=== PATIENT | female | born 1935 | race Caucasian/White ===

== ENCOUNTER 2016-09-07 09:28 | Emergency (ER) | payer MEDICARE, OTHER ==
[2016-09-07] MEDS ORDERED: METHYLPREDNISOLONE INJ 125 MG/2 ML SDV IV ONE (09:50)
[2016-09-07] MEDS ORDERED: IPRATROPIUM/ALBUTEROL 0.5-2.5 MG/3 ML AMPUL NEB ONE (09:50)
--- NOTE | 2016-09-07 09:53 | ER Document Report ---
ED Respiratory Problem - General Mode of Arrival: Medic Information source: Patient TRAVEL OUTSIDE OF THE [place] IN LAST 30 DAYS: No - HPI Patient complains to provider of: Short of breath Onset: This morning Associated symptoms: Other - see above <SHAILA YBARRA - Last Filed: 09/07/16 10:48> <EDITH PERKINS - Last Filed: 09/07/16 16:02> - General Stated Complaint: DIFFICULTY BREATHING Notes: 80 year old female with history of an aortic valve replacement, hyperlipidemia, hypertension, and atrial fibrillation presents to the ED via EMS complaining of shortness of breath that started earlier this morning. Patient states that prior to taking her medication, she drank some cold water and began to feel some shortness of breath. The patient then proceeded to vomit up water and mucus. Patient saw Dr. Palmer yesterday for a routine check up and states that she had an episode of shortness of breath shortly after dinner last night. Patient has never experienced shortness of breath to this degree before. (SHAILA YBARRA) - Related Data Allergies/Adverse Reactions: morphine [Morphine] Adverse Reaction (Verified 12/17/14 02:58) oxycodone [Oxycodone] Adverse Reaction (Verified 12/17/14 02:58) Past Medical History - General Information source: Patient - Social History Smoking Status: Unknown if Ever Smoked Family History: Reviewed & Not Pertinent - Past Medical History Cardiac Medical History: Reports: Hx Atrial Fibrillation, Hx Hypercholesterolemia, Hx Hypertension, Hx Heart Murmur Endocrine Medical History: Reports: Hx Diabetes Mellitus Type 2 Psychiatric Medical History: Reports: Hx Dementia, Hx Depression Past Surgical History: Reports: Hx Orthopedic Surgery - L shoulder repair, Hx Tubal Ligation - Immunizations Hx Diphtheria, Pertussis, Tetanus Vaccination: Yes Hx Pneumococcal Vaccination: 02/13/12 <SHAILA YBARRA - Last Filed: 09/07/16 10:48> Review of Systems - Review of Systems Constitutional: No symptoms reported EENT: No symptoms reported Cardiovascular: No symptoms reported Respiratory: See HPI, Short of breath Gastrointestinal: See HPI, Vomiting Genitourinary: No symptoms reported Female Genitourinary: No symptoms reported Musculoskeletal: No symptoms reported Skin: No symptoms reported Hematologic/Lymphatic: No symptoms reported Neurological/Psychological: No symptoms reported -: Yes All other systems reviewed and negative <SHAILA YBARRA - Last Filed: 09/07/16 10:48> Physical Exam - General General appearance: Alert In distress: None - HEENT Head: Normocephalic, Atraumatic Eyes: Normal Extraocular movements intact: Yes Pupils: PERRL - Respiratory Respiratory status: No respiratory distress Breath sounds: Rhonchi, Wheezing - Cardiovascular Rhythm: Regular Heart sounds: Normal auscultation Murmur: Yes - 2/6 murmur - Abdominal Inspection: Obese. No: Normal - Back Back: Normal - Extremities General upper extremity: Normal inspection, Normal ROM General lower extremity: Edema - some trace edema to the bilateral lower extremities, Normal ROM - Neurological Neuro grossly intact: Yes - Psychological Associated symptoms: Normal affect, Normal mood - Skin Skin Temperature: Warm Skin Moisture: Dry Skin Color: Normal <SHAILA YBARRA - Last Filed: 09/07/16 10:48> <EDITH PERKINS - Last Filed: 09/07/16 16:02> - Vital signs Vitals: Resp Pulse Ox 16 94 09/07/16 09:47 09/07/16 09:47 Temp Pulse Resp BP Pulse Ox 97.6 F 102 H 18 179/91 H 94 09/07/16 09:54 09/07/16 09:54 09/07/16 09:54 09/07/16 09:54 09/07/16 09:54 (SHAILA YBARRA) (EDITH PERKINS) Course - Laboratory Result Diagrams: 09/07/16 10:00 09/07/16 10:00 <SHAILA YBARRA - Last Filed: 09/07/16 10:48> - Laboratory Result Diagrams: 09/07/16 10:00 09/07/16 10:00 - Diagnostic Test Radiology reviewed: Image reviewed, Reports reviewed - Chest x-ray shows some chronic scarring in the left lower lung. No acute changes. CTa chest--no pulmonary embolus. Suggest pulmonary hypertension. No obstruction to aortic valve. - EKG Interpretation by [place] EKG shows normal: Sinus rhythm, [place], Intervals, ST-T Waves. abnormal: QRS Complexes Rate: Normal - 95 Rhythm: NSR [place]/QRS: LBBB <EDITH PERKINS - Last Filed: 09/07/16 16:02> - Re-evaluation Re-evalutation: 09/07/16 12:17 Patient reports that her breathing is actually much better after the breathing treatment. She will receive additional breathing treatments. Antibiotics were started for a urinary tract infection. 09/07/16 14:04 On reexamining the patient, no wheezes really hurt. She has become quite diaphoretic and does feel warm. Her pulse ox is 93% on room air. She does seem a little tachypneic. His that ever since she had her aortic valve replaced, she does get dyspnea on exertion and is unable to walk even from her room to the dining area at [facility] without becoming short of breath. (EDITH PERKINS) - Vital Signs Vital signs: Temp Pulse Resp BP Pulse Ox 97.6 F 102 H 19 147/57 H 91 L 09/07/16 09:54 09/07/16 09:54 09/07/16 15:01 09/07/16 15:00 09/07/16 15:01 (EDITH PERKINS) - Laboratory Laboratory results interpreted by me: 09/07/16 09/07/16 09/07/16 10:00 10:00 10:00 WBC 13.0 H MCV 98 H Plt Count 141 L Seg Neuts % (Manual) 90 H Lymphocytes % (Manual) 5 L Abs Neuts (Manual) 11.7 H D-Dimer Sodium 145.2 H Est GFR (Non-Af Amer) 52 L Glucose 147 H NT-Pro-B Natriuret Pep 1920 H Urine Protein Urine Blood Urine Nitrite Ur Leukocyte Esterase 09/07/16 09/07/16 10:00 10:40 WBC MCV Plt Count Seg Neuts % (Manual) Lymphocytes % (Manual) Abs Neuts (Manual) D-Dimer 0.64 H Sodium Est GFR (Non-Af Amer) Glucose NT-Pro-B Natriuret Pep Urine Protein 100 H Urine Blood SMALL H Urine Nitrite POSITIVE H Ur Leukocyte Esterase MODERATE H Discharge <SHAILA YBARRA - Last Filed: 09/07/16 10:48> <EDITH PERKINS - Last Filed: 09/07/16 16:02> - Discharge Clinical Impression: Acute bronchitis with bronchospasm, Difficulty breathing Urinary tract infection Qualifiers: Urinary tract infection type: site unspecified Hematuria presence: without hematuria Qualified Code(s): N39.0 - Urinary tract infection, site not specified Condition: Stable Disposition: HOME, SELF-CARE Additional Instructions: Bronchitis with Bronchospasm (Wheezing): You have bronchitis with bronchospasm (wheezing). Sometimes people develop wheezing with a chest cold. This occurs either because of an underlying tendency toward asthma or because the virus itself irritates the bronchial tubes. This irritation causes cough, shortness of breath, and wheezing. Emergency treatment of bronchospasm may include adrenaline shots or bronchodilator aerosol. You may feel lightheaded and have a rapid pulse for an hour or two. Rest and get plenty of fluids. At home, we'll treat you with a bronchodilator inhaler. Corticosteroids may be required for some patients. Until you recover, avoid chemical fumes, dusts, pollens, and exercising in very cold or dry air. If you smoke, stop now! Most cases of bronchitis get better without antibiotics. We prescribe antibiotics when we believe bacteria are damaging your airways, or if there's high risk the bronchitis will worsen into pneumonia. Increase your fluid intake. A cool mist humidifier may make your lungs more comfortable. An expectorant (cough medicine that loosens phlegm) can help. Repeated episodes of bronchitis and bronchospasm may result in lung damage -- for example, chronic bronchitis, recurrent pneumonias, or emphysema. If you develop a fever, increased wheezing, chest pain, or severe shortness of breath, you should contact the doctor immediately. Urinary Tract Infection: Your evaluation indicates that you have a urinary tract infection. This is due to germs growing in the bladder. This is a common problem. This infection usually responds quickly to antibiotics. Your antibiotic should be taken exactly as prescribed. Drink plenty of fluids -- three to four quarts a day. Certain urine infections require a culture. If the doctor obtained a culture, the results will be back in two days. You should call to see if a change in treatment is needed. A repeat urinalysis after you finish treatment is often recommended. The physician will let you know if further testing is required. Call the doctor if you develop fever, chills, flank pain, inability to urinate, or blood in the urine. USE THE INHALER 2 PUFFS EVERY 4 HOURS FOR WHEEZING AND SHORTNESS OF BREATH. START THE PREDNISONE AND KEFLEX TOMORROW. DRINK PLENTY OF FLUIDS. FOLLOW UP WITH YOUR DOCTOR FRIDAY FOR RECHECK. RETURN TO THE EMERGENCY ROOM IF ANY NEW OR WORSENING SYMPTOMS. Prescriptions: Cephalexin Monohydrate [Keflex 500 mg Capsule] 500 mg PO TID #15 capsule Prednisone [Deltasone 10 mg Tablet] 10 mg PO ASDIR PRN #21 tablet PRN Reason: Referrals: ITALO PALMER MD [Primary Care Provider] - 09/09/16 Scribe Attestation: 09/07/16 16:02 I personally performed the services described in the documentation, reviewed and edited the documentation which was dictated to the scribe in my presence, and it accurately records my words and actions. (EDITH PERKINS) Scribe Documentation - Scribe Written by Tiera:: Tiera Williamson, 09/07/2016 09:55 acting as scribe for :: Lina <SHAILA YBARRA - Last Filed: 09/07/16 10:48>
[2016-09-07 10:18] LABS: HEMATOCRIT 37.3 % (36.0-47.0); HEMOGLOBIN 12.2 g/dL (12.0-15.5); HGB HCT DIFFERENCE -0.7; MEAN CORPUSCULAR HGB CONC 32.8 g/dL (32.0-36.0); MEAN CORPUSCULAR VOLUME 98 fl (80-97); RED BLOOD COUNT 3.82 10^6/uL (3.72-5.28); RED CELL DISTRIBUTION WIDTH 13.2 % (11.5-14.0)
[2016-09-07 10:33] LABS: ALANINE AMINOTRANSFERASE 25 U/L (9-52); ALBUMIN 3.9 g/dL (3.5-5.0); ALKALINE PHOSPHATASE 96 U/L (38-126); ANION GAP 15 (5-19); ASPARTATE AMINO TRANSFERASE 20 U/L (14-36); BILIRUBIN,TOTAL 0.6 mg/dL (0.2-1.3); BLOOD UREA NITROGEN 18 mg/dL (7-20); CALCIUM 8.9 mg/dL (8.4-10.2); CARBON DIOXIDE 26 mmol/L (22-30); CHLORIDE 104 mmol/L (98-107); CREATINE KINASE 36 U/L (30-135); CREATININE RESULT 1.03 mg/dL (0.52-1.25); GLUCOSE 147 mg/dL (75-110); POTASSIUM 3.8 mmol/L (3.6-5.0); SODIUM 145.2 mmol/L (137-145); TOTAL PROTEIN 7.1 g/dL (6.3-8.2)
[2016-09-07 10:36] LABS: BASOPHILS % (MANUAL) 1 % (0-2); EOSINOPHILS % (MANUAL) 0 % (0-6); LYMPHOCYTES % (MANUAL) 5 % (13-45); TOTAL CELLS COUNTED 100
[2016-09-07 10:37] LABS: RBC MORPHOLOGY COMMENT NORMO-CYTIC/CHROMIC
[2016-09-07 10:45] LABS: CREATINE KINASE MB 0.8 ng/mL (<4.55); TROPONIN I 0.016 ng/mL
[2016-09-07 11:13] LABS: APPEARANCE,URINE CLOUDY; BILIRUBIN,URINE NEGATIVE (NEGATIVE); GLUCOSE, URINE NEGATIVE (NEGATIVE); KETONES,URINE NEGATIVE (NEGATIVE); LEUKOCYTE ESTERASE,URINE MODERATE (NEGATIVE); NITRITE,URINE POSITIVE (NEGATIVE); PROTEIN,URINE 100 mg/dL (NEGATIVE); URINE SPECIFIC GRAVITY 1.017; UROBILINOGEN,URINE NEGATIVE mg/dL (<2.0)
[2016-09-07] MEDS ORDERED: CEFTRIAXONE 1 GM/D5W RTU 50 ML IV ONE (11:32)
[2016-09-07] MEDS ORDERED: ALBUTEROL SULFATE 0.083% NEB 2.5 MG/3 ML AMPUL NEB ONE (12:17)
--- NOTE | 2016-09-07 15:13 | EKG REPORT ---
SEVERITY:- ABNORMAL ECG - SINUS RHYTHM LEFT BUNDLE BRANCH BLOCK : Confirmed by: Chayo Dumont MD 07-Sep-2016 15:12:55
[2016-09-07] MEDS ORDERED: ALBUTEROL SULFATE HFA (90 MCG/PUFF) 8 GM MDI (1 MDI/ER DISP) IH ONE (15:58)
[2016-09-07] MEDS ORDERED: PREDNISONE 20 MG TABLET PO ONE (15:58)
[2016-09-07 16:26] VITALS: BP 146/61
== END 2016-09-07 16:30 | disposition home or self-care (01) ==
LOC: ER 09:28
DX: J20.9 Acute bronchitis, unspecified (principal); N39.0 Urinary tract infection, site not specified; R06.02 Shortness of breath; I10 Essential (primary) hypertension; R11.10 Vomiting, unspecified; E11.9 Type 2 diabetes mellitus without complications; R60.0 Localized edema; I44.7 Left bundle-branch block, unspecified; Z95.2 Presence of prosthetic heart valve; R61 Generalized hyperhidrosis
CPT/HCPCS: 93005; 94640 ×2; 99285; 36415; 87040; 87086; 82553; 82550; 85025; 87077; 87088; 80053; 81001; 84484; 87186; 85379; 83880; 71010; 71275; 93010; J2930; A9270 ×3; J0696; J3490; J7512; J7620

== ENCOUNTER 2017-01-22 13:31 | Emergency (ER) | payer MEDICARE, OTHER ==
--- NOTE | 2017-01-22 15:10 | RADIOLOGY REPORT (SQ) ---
EXAM DESCRIPTION: CT HEAD WITHOUT COMPLETED DATE/TIME: 01/22/2017 2:58 pm REASON FOR STUDY: fall, hit head COMPARISON: 06/08/2015. TECHNIQUE: Axial images acquired through the brain without intravenous contrast. Images reviewed wi th bone, brain and subdural windows. Images stored on PACS. All CT scanners at this facility use dose modulation, iterative reconstruction, and/or weight based d osing when appropriate to reduce radiation dose to as low as reasonably achievable (ALARA). [facility]: Dose Right [facility]: CareDose [facility]: Dose Right [facility]: Teradose 4D [facility]: Ocean's Halo RADIATION DOSE: 59.25 mGy. LIMITATIONS: None. FINDINGS: VENTRICLES: Normal size and contour. CEREBRUM: There is mild cortical atrophy. There are small areas of decreased attenuation in the whit e matter tracts. No masses. No hemorrhage. No midline shift. Normal orellana/white matter differentia tion. No evidence for acute infarction. CEREBELLUM: No masses. No hemorrhage. No alteration of density. No evidence for acute infarction. EXTRAAXIAL SPACES: No fluid collections. No masses. ORBITS AND GLOBE: No intra- or extraconal masses. Normal contour of globe without masses. CALVARIUM: No fracture. PARANASAL SINUSES: No fluid or mucosal thickening. SOFT TISSUES: No mass or hematoma. OTHER: No other significant finding. IMPRESSION: Involutional changes of aging with chronic microvascular ischemic changes. There is no acute intracranial pathology. TECHNICAL DOCUMENTATION: JOB ID: [id number] Quality ID # [id number]: Final reports with documentation of one or more dose reduction techniques (e.g., Au tomated exposure control, adjustment of the mA and/or kV according to patient size, use of iterative reconstruction technique) 2010 [employer]- All Rights Reserved
[2017-01-22] MEDS ORDERED: HYDROMORPHONE HCL 2 MG TABLET PO ONE ×2 (15:17→16:33)
--- NOTE | 2017-01-22 15:24 | RADIOLOGY REPORT (SQ) ---
EXAM DESCRIPTION: SHOULDER RIGHT 2 OR MORE VIEWS COMPLETED DATE/TIME: 01/22/2017 3:14 pm REASON FOR STUDY: fall COMPARISON: None. NUMBER OF VIEWS: Three views. TECHNIQUE: Internal rotation, external rotation, and Y view images acquired of the right shoulder. LIMITATIONS: None. FINDINGS: MINERALIZATION: Osteopenia. BONES: There is a comminuted fracture involving the right humeral head/neck with apparent extension i nto the joint space. There appears to be displacement of the fracture fragments medially and distall y in relation to the humeral shaft. No other fractures are identified. No dislocation JOINTS: No dislocation. Degenerative changes noted in the acromioclavicular joint. VISUALIZED LUNGS AND RIBS: No pneumothorax. No rib fracture. SOFT TISSUES: There is soft tissue swelling about the shoulder. No radiopaque foreign by OTHER: No other significant finding. IMPRESSION: Comminuted fracture of the right humeral head/neck extension of the fracture into the catarino int space. There is displacement of the fracture fragments both distally and medially in relation to the humeral shaft. There is soft tissue swelling about the shoulder. No radiopaque foreign body. TECHNICAL DOCUMENTATION: JOB ID: [id number] [employer]- All Rights Reserved
--- NOTE | 2017-01-22 15:55 | ER Document Report ---
ED Fall - General Chief Complaint: Fall Stated Complaint: FALL/SHOLDER PAIN Time Seen by Provider: 01/22/17 14:32 Mode of Arrival: Medic Information source: Patient, Emergency Med Personnel, [facility] Records Notes: This 81-year-old female with some dementia lives at [facility]. She reportedly tripped over a floor mat, fell striking her head on a bedside table and landing on her right side on the floor. She is complaining of pain to the right shoulder. There was no dizziness prior to the fall. TRAVEL OUTSIDE OF THE [place] IN LAST 30 DAYS: No - Related data Allergies/Adverse Reactions: morphine [Morphine] Adverse Reaction (Verified 12/17/14 02:58) oxycodone [Oxycodone] Adverse Reaction (Verified 12/17/14 02:58) Past Medical History - General Information source: Patient, Emergency Med Personnel, [facility] Records - Social History Smoking Status: Former Smoker Cigarette use (# per day): No Chew tobacco use (# tins/day): No Smoking Education Provided: No Frequency of alcohol use: None Drug Abuse: None Lives with: Retirement Family History: Reviewed & Not Pertinent - Past Medical History Cardiac Medical History: Reports: Hx Atrial Fibrillation, Hx Hypercholesterolemia, Hx Hypertension, Hx Heart Murmur, Other - Pulmonary hypertension Pulmonary Medical History: Reports: None EENT Medical History: Reports: None Neurological Medical History: Reports: None Endocrine Medical History: Reports: Hx Diabetes Mellitus Type 2 Renal/ Medical History: Reports: None Malignancy Medical History: Reports: None GI Medical History: Reports: None Musculoskeltal Medical History: Reports Hx Arthritis Skin Medical History: Reports None Psychiatric Medical History: Reports: Hx Dementia, Hx Depression Traumatic Medical History: Reports: None Infectious Medical History: Reports: None Past Surgical History: Reports: Hx Cardiac Surgery - Bio-prosthetic aortic valve replacement, Hx Orthopedic Surgery - L shoulder replacement, Hx Tubal Ligation, Other - Right mastoid surgery for chronic mastoiditis - Immunizations Hx Diphtheria, Pertussis, Tetanus Vaccination: Yes Hx Pneumococcal Vaccination: 02/13/12 Review of Systems - Review of Systems Constitutional: No symptoms reported EENT: No symptoms reported Cardiovascular: No symptoms reported Respiratory: No symptoms reported Gastrointestinal: No symptoms reported Genitourinary: No symptoms reported Female Genitourinary: Post menopausal Musculoskeletal: See HPI Skin: No symptoms reported Hematologic/Lymphatic: No symptoms reported Neurological/Psychological: Dementia Physical Exam - Vital signs Vitals: Temp Resp 98.0 F 18 01/22/17 13:35 01/22/17 13:35 Interpretation: Normal - General General appearance: Appears well, Alert In distress: None - HEENT Head: Normocephalic Eyes: Normal Pupils: PERRL Nasal: Normal Mouth/Lips: Normal Pharynx: Normal Neck: Normal - Respiratory Respiratory status: No respiratory distress Breath sounds: Normal - Cardiovascular Rhythm: Regular Heart sounds: Normal auscultation Murmur: No - Abdominal Inspection: Normal Bowel sounds: Normal Tenderness: Nontender - Back Back: Normal - Extremities General upper extremity: Other - Tender swelling to the right shoulder General lower extremity: Normal inspection Elbow: Normal Forearm: Normal Wrist: Normal Hand: Normal - Neurological Neuro grossly intact: Yes - Psychological Associated symptoms: Normal affect, Normal mood Course - Re-evaluation Re-evalutation: 01/22/17 16:22 The shoulder immobilizer was placed on the right shoulder by the PCT. Fits well, it holds the wrist to the abdomen, it allows the shoulder to hang freely. - Vital Signs Vital signs: Temp Pulse Resp BP Pulse Ox 98.0 F 18 129/47 H 93 01/22/17 13:35 01/22/17 13:35 01/22/17 14:12 01/22/17 14:12 - Diagnostic Test Radiology reviewed: Image reviewed, Reports reviewed - Comminuted, slightly displaced, right humeral head Discharge - Discharge Clinical Impression: Shoulder fracture, right Qualifiers: Encounter type: initial encounter Fracture type: closed Qualified Code(s): S42.91XA - Fracture of right shoulder girdle, part unspecified, initial encounter for closed fracture Fall Qualifiers: Encounter type: initial encounter Qualified Code(s): W19.XXXA - Unspecified fall, initial encounter Condition: Stable Disposition: HOME, SELF-CARE Additional Instructions: You have a comminuted, displaced fracture of the humeral head in the right shoulder. The management of this injury is a shoulder immobilizer, ice packs, and pain medication. Call Dr. Vizcarra's office at [facility] for surgery to schedule a follow- up appointment in the next week. Follow-up with your primary care doctor for pain management if you are running out of the pain medication. RETURN TO THE EMERGENCY ROOM IF ANY NEW OR WORSENING SYMPTOMS. Prescriptions: Hydromorphone HCl [Dilaudid 2 mg Tablet] 2 mg PO Q4 PRN #20 tablet PRN Reason:
[2017-01-22 19:22] VITALS: BP 126/46
== END 2017-01-22 19:55 | disposition home or self-care (01) ==
LOC: ER 13:31
DX: S42.91XA Fracture of right shoulder girdle, part unspecified, initial encounter for closed fracture (principal); M25.511 Pain in right shoulder; W19.XXXA Unspecified fall, initial encounter; Z87.891 Personal history of nicotine dependence
CPT/HCPCS: 99284; 73030; 70450; L3650; A9270

== ENCOUNTER 2017-02-18 09:30 | Inpatient (IN) | payer MEDICARE, OTHER ==
[2017-02-18] MEDS ORDERED: NORMAL SALINE 500 ML IV ONE (09:44)
[2017-02-18 10:05] LABS: ABSOLUTE EOSINOPHILS # (AUTO) 0.1 10^3/uL (0.0-0.6); ABSOLUTE LYMPHOCYTES (AUTO) 0.8 10^3/uL (0.5-4.7); ABSOLUTE MONOCYTES (AUTO) 0.4 10^3/uL (0.1-1.4); ABSOLUTE NEUT (AUTO) 4.3 10^3/uL (1.7-8.2); BASOPHILS % (AUTO) 0.5 % (0-2); EOSINOPHILS % (AUTO) 1.6 % (0-6); HEMATOCRIT 31.7 % (36.0-47.0); HEMOGLOBIN 10.2 g/dL (12.0-15.5); HGB HCT DIFFERENCE -1.1; LYMPHOCYTES % (AUTO) 14.5 % (13-45); MEAN CORPUSCULAR HEMOGLOBIN 31.7 pg (27.0-33.4); MEAN CORPUSCULAR HGB CONC 32.3 g/dL (32.0-36.0); MEAN CORPUSCULAR VOLUME 98 fl (80-97); MONOCYTES % (AUTO) 6.8 % (3-13); RED BLOOD COUNT 3.23 10^6/uL (3.72-5.28); RED CELL DISTRIBUTION WIDTH 13.4 % (11.5-14.0); SEGMENTED NEUTROPHILS % (AUTO) 76.6 % (42-78); WHITE BLOOD COUNT 5.7 10^3/uL (4.0-10.5)
--- NOTE | 2017-02-18 10:10 | RADIOLOGY REPORT (SQ) ---
EXAM DESCRIPTION: CHEST SINGLE VIEW COMPLETED DATE/TIME: 02/18/2017 9:59 am REASON FOR STUDY: bed 4 cp COMPARISON: X-ray right shoulder dated 01/22/2017. Chest x-ray dated 09/07/2016. EXAM PARAMETERS: NUMBER OF VIEWS: One view. TECHNIQUE: Single frontal radiographic view of the chest acquired. RADIATION DOSE: NA LIMITATIONS: None. FINDINGS: LUNGS AND PLEURA: Linear atelectasis/ scarring. No lobar infiltrates, masses or pneumotho rax. No pleural effusion. MEDIASTINUM AND HILAR STRUCTURES: No masses. Contour normal. HEART AND VASCULAR STRUCTURES: Heart upper limits of normal in size. Normal vasculature. BONES: No acute findings. Previous fracture of the right humeral head. HARDWARE: Aortic valve. Left shoulder prosthesis. OTHER: No other significant finding. IMPRESSION: STABLE CHRONIC CHANGES. BORDERLINE CARDIOMEGALY. LINEAR ATELECTASIS/SCARRING. NO ACUT E RADIOGRAPHIC FINDING IN THE CHEST. TECHNICAL DOCUMENTATION: JOB ID: [id number]
[2017-02-18 10:18] LABS: ALANINE AMINOTRANSFERASE 26 U/L (9-52); ALBUMIN 3.8 g/dL (3.5-5.0); ALKALINE PHOSPHATASE 145 U/L (38-126); ANION GAP 11 (5-19); ASPARTATE AMINO TRANSFERASE 19 U/L (14-36); BILIRUBIN,DIRECT 0.3 mg/dL (0.0-0.4); BILIRUBIN,TOTAL 0.5 mg/dL (0.2-1.3); BLOOD UREA NITROGEN 12 mg/dL (7-20); CALCIUM 9.1 mg/dL (8.4-10.2); CARBON DIOXIDE 24 mmol/L (22-30); CHLORIDE 108 mmol/L (98-107); CREATINE KINASE 41 U/L (30-135); GLUCOSE 114 mg/dL (75-110); MAGNESIUM 1.9 mg/dL (1.6-2.3); POTASSIUM 3.5 mmol/L (3.6-5.0); SODIUM 142.7 mmol/L (137-145); TOTAL PROTEIN 6.6 g/dL (6.3-8.2)
[2017-02-18] MEDS ORDERED: NITROGLYCERIN 2% OINTMENT 1 GM PACKET TP ONE (10:21)
[2017-02-18] MEDS ORDERED: HYDROMORPHONE HCL INJ/PF 2 MG/ML AMPULE IV ONE (10:23)
[2017-02-18 10:29] LABS: CREATINE KINASE MB 1.75 ng/mL (<4.55)
[2017-02-18 10:47] LABS: TROPONIN I 0.036 ng/mL
--- NOTE | 2017-02-18 11:52 | ER Document Report ---
ED General - General Chief Complaint: Chest Pressure Stated Complaint: CHEST PAIN Time Seen by Provider: 02/18/17 09:33 TRAVEL OUTSIDE OF THE [place] IN LAST 30 DAYS: No - Related Data Allergies/Adverse Reactions: morphine [Morphine] Adverse Reaction (Verified 02/18/17 09:58) oxycodone [Oxycodone] Adverse Reaction (Verified 02/18/17 09:58) Home Medications: Current Home Medications Albuterol Sulfate [Ventolin HFA MDI 18 GM] 2 puff IH Q4H PRN 02/18/17 [History] Ibuprofen [Motrin 600 mg Tablet] 600 mg PO TID 02/18/17 [History] Loperamide HCl [Imodium 2 mg Capsule] 2 mg PO DAILY PRN 02/18/17 [History] Past Medical History - Social History Smoking Status: Never Smoker Frequency of alcohol use: None Drug Abuse: None Family History: Reviewed & Not Pertinent - Past Medical History Cardiac Medical History: Reports: Hx Atrial Fibrillation, Hx Hypercholesterolemia, Hx Hypertension, Hx Heart Murmur Denies: Hx Congestive Heart Failure, Hx Coronary Artery Disease, Hx Heart Attack, Hx Peripheral Vascular Disease, Hx Pulmonary Embolism Pulmonary Medical History: Reports: Hx COPD Denies: Hx Asthma, Hx Bronchitis, Hx Pneumonia, Hx Respiratory Failure, Hx Sleep Apnea, Hx Tuberculosis Neurological Medical History: Denies: Hx Cerebrovascular Accident - DEMENTIA WITH DEPRESSION, Hx Seizures Endocrine Medical History: Reports: Hx Diabetes Mellitus Type 2. Denies: Hx Graves' Disease, Hx Hyperthyroidism, Hx Hypothyroidism Renal/ Medical History: Denies: Hx End Stage Renal Disease, Hx Kidney Stones, Hx Ovarian Cysts, Hx Peritoneal Dialysis, Hx Pelvic Inflammatory Disease Malignancy Medical History: Denies: Hx Breast Cancer, Hx Cervical Cancer, Hx Leukemia, Hx Lung Cancer, Hx Ovarian Cancer GI Medical History: Denies: Hx Crohn's Disease, Hx Gastroesophageal Reflux Disease, Hx Hepatitis, Hx Hiatal Hernia - diverticulitis, Hx Irritable Bowel, Hx Liver Failure, Hx Ulcer Musculoskeltal Medical History: Denies Hx Arthritis, Denies Hx Fibromyalgia, Denies Hx Multiple Sclerosis, Denies Hx Muscular Dystrophy Psychiatric Medical History: Reports: Hx Dementia, Hx Depression Denies: Hx Bipolar Disorder, Hx Post Traumatic Stress Disorder, Hx Schizophrenia Traumatic Medical History: Denies: Hx Fractures Infectious Medical History: Denies: Hx Hepatitis, Hx HIV Past Surgical History: Reports: Hx Cardiac Surgery - Bio-prosthetic aortic valve replacement, Hx Orthopedic Surgery - L shoulder replacement, left hip, Hx Tubal Ligation, Other - Right mastoid surgery for chronic mastoiditis. Denies: Hx Appendectomy, Hx Bowel Surgery, Hx Section, Hx Cholecystectomy, Hx Colostomy, Hx Coronary Artery Bypass Graft, Hx Gastric Bypass Surgery, Hx Herniorrhaphy, Hx Hysterectomy, Hx Mastectomy, Hx Open Heart Surgery, Hx Pacemaker, Hx Tonsillectomy - Immunizations Hx Diphtheria, Pertussis, Tetanus Vaccination: Yes Hx Pneumococcal Vaccination: 02/13/12 Physical Exam - Vital signs Vitals: Temp Pulse Resp BP Pulse Ox 98.1 F 76 20 188/76 H 97 02/18/17 09:30 02/18/17 09:30 02/18/17 09:30 02/18/17 09:30 02/18/17 09:30 Course - Vital Signs Vital signs: Temp Pulse Resp BP Pulse Ox 98.1 F 76 18 170/67 H 93 02/18/17 09:30 02/18/17 09:30 02/18/17 11:31 02/18/17 11:31 02/18/17 11:31 - Laboratory Result Diagrams: 02/18/17 09:52 02/18/17 09:52 Laboratory results interpreted by me: 02/18/17 02/18/17 09:52 09:52 RBC 3.23 L Hgb 10.2 L Hct 31.7 L MCV 98 H Potassium 3.5 L Chloride 108 H Glucose 114 H Alkaline Phosphatase 145 H Discharge - Discharge Clinical Impression: Chest pressure Femoral neck fracture Qualifiers: Encounter type: initial encounter Fracture type: closed Laterality: right Qualified Code(s): S72.001A - Fracture of unspecified part of neck of right femur, initial encounter for closed fracture Condition: Fair Disposition: ADMITTED INPATIENT Admitting Provider: [facility] Unit Admitted: IMCU Referrals: ITALO PALMER MD [Primary Care Provider] - Follow up as needed
[2017-02-18 12:21] LABS: APPEARANCE,URINE CLEAR; BILIRUBIN,URINE NEGATIVE (NEGATIVE); GLUCOSE, URINE NEGATIVE (NEGATIVE); KETONES,URINE TRACE mg/dL (NEGATIVE); LEUKOCYTE ESTERASE,URINE NEGATIVE (NEGATIVE); NITRITE,URINE NEGATIVE (NEGATIVE); PROTEIN,URINE 30 mg/dL (NEGATIVE); URINE SPECIFIC GRAVITY 1.013; UROBILINOGEN,URINE NEGATIVE mg/dL (<2.0)
[2017-02-18] MEDS ORDERED: NITROGLYCERIN 0.4 MG/TAB 25 TAB/BOTTLE SL PRN (12:49)
--- NOTE | 2017-02-18 14:47 | ER Document Report ---
ED General - General Chief Complaint: Chest Pressure Stated Complaint: CHEST PAIN Time Seen by Provider: 02/18/17 09:33 TRAVEL OUTSIDE OF THE [place] IN LAST 30 DAYS: No - HPI Patient complains to provider of: Chest pressure Notes: Patient coming in for evaluation of chest pain patient was recently incarcerated general for orthopedic surgery of or right shoulder when she had complications due to anesthesia of the surgery was halted and patient remained intubated for proximal and 24 hours and placed in ICU. Patient states that she did have a heart attack during this time however was discharged home. Patient now at 8:00 this morning awoke with chest pressure patient was brought to the ER for further evaluation. According to [facility] notes patient was giving her blood pressure medication Imdur and metoprolol. Patient also was given a breathing treatment which normally these are chest pressure. Patient was given 2 nitroglycerin tablets with no relief of her pain. Patient states pain still approximately 3 out of 5 nonradiating worse with deep breath and palpation. - Related Data Allergies/Adverse Reactions: morphine [Morphine] Adverse Reaction (Verified 02/18/17 09:58) oxycodone [Oxycodone] Adverse Reaction (Verified 02/18/17 09:58) Home Medications: Current Home Medications Albuterol Sulfate [Ventolin HFA MDI 18 GM] 2 puff IH Q4H PRN 02/18/17 [History] Ibuprofen [Motrin 600 mg Tablet] 600 mg PO TID 02/18/17 [History] Loperamide HCl [Imodium 2 mg Capsule] 2 mg PO DAILY PRN 02/18/17 [History] Past Medical History - Social History Smoking Status: Never Smoker Frequency of alcohol use: None Drug Abuse: None Family History: Reviewed & Not Pertinent - Past Medical History Cardiac Medical History: Reports: Hx Atrial Fibrillation, Hx Hypercholesterolemia, Hx Hypertension, Hx Heart Murmur Denies: Hx Congestive Heart Failure, Hx Coronary Artery Disease, Hx Heart Attack, Hx Peripheral Vascular Disease, Hx Pulmonary Embolism Pulmonary Medical History: Reports: Hx COPD Denies: Hx Asthma, Hx Bronchitis, Hx Pneumonia, Hx Respiratory Failure, Hx Sleep Apnea, Hx Tuberculosis Neurological Medical History: Denies: Hx Cerebrovascular Accident - DEMENTIA WITH DEPRESSION, Hx Seizures Endocrine Medical History: Reports: Hx Diabetes Mellitus Type 2. Denies: Hx Graves' Disease, Hx Hyperthyroidism, Hx Hypothyroidism Renal/ Medical History: Denies: Hx End Stage Renal Disease, Hx Kidney Stones, Hx Ovarian Cysts, Hx Peritoneal Dialysis, Hx Pelvic Inflammatory Disease Malignancy Medical History: Denies: Hx Breast Cancer, Hx Cervical Cancer, Hx Leukemia, Hx Lung Cancer, Hx Ovarian Cancer GI Medical History: Denies: Hx Crohn's Disease, Hx Gastroesophageal Reflux Disease, Hx Hepatitis, Hx Hiatal Hernia - diverticulitis, Hx Irritable Bowel, Hx Liver Failure, Hx Ulcer Musculoskeltal Medical History: Denies Hx Arthritis, Denies Hx Fibromyalgia, Denies Hx Multiple Sclerosis, Denies Hx Muscular Dystrophy Psychiatric Medical History: Reports: Hx Dementia, Hx Depression Denies: Hx Bipolar Disorder, Hx Post Traumatic Stress Disorder, Hx Schizophrenia Traumatic Medical History: Denies: Hx Fractures Infectious Medical History: Denies: Hx Hepatitis, Hx HIV Past Surgical History: Reports: Hx Cardiac Surgery - Bio-prosthetic aortic valve replacement, Hx Orthopedic Surgery - L shoulder replacement, left hip, Hx Tubal Ligation, Other - Right mastoid surgery for chronic mastoiditis. Denies: Hx Appendectomy, Hx Bowel Surgery, Hx Section, Hx Cholecystectomy, Hx Colostomy, Hx Coronary Artery Bypass Graft, Hx Gastric Bypass Surgery, Hx Herniorrhaphy, Hx Hysterectomy, Hx Mastectomy, Hx Open Heart Surgery, Hx Pacemaker, Hx Tonsillectomy - Immunizations Hx Diphtheria, Pertussis, Tetanus Vaccination: Yes Hx Pneumococcal Vaccination: 02/13/12 Review of Systems - Review of Systems Constitutional: No symptoms reported EENT: No symptoms reported Cardiovascular: Chest pain Respiratory: No symptoms reported Gastrointestinal: No symptoms reported Genitourinary: No symptoms reported Female Genitourinary: No symptoms reported Musculoskeletal: No symptoms reported Skin: No symptoms reported Hematologic/Lymphatic: No symptoms reported Neurological/Psychological: No symptoms reported -: Yes All other systems reviewed and negative Physical Exam - Vital signs Vitals: Temp Pulse Resp BP Pulse Ox 98.1 F 76 20 188/76 H 97 02/18/17 09:30 02/18/17 09:30 02/18/17 09:30 02/18/17 09:30 02/18/17 09:30 Interpretation: Normal - General General appearance: Appears well, Alert - HEENT Head: Normocephalic, Atraumatic Eyes: Normal Pupils: PERRL - Respiratory Respiratory status: No respiratory distress Chest status: Nontender Breath sounds: Normal Chest palpation: Normal - Cardiovascular Rhythm: Regular Heart sounds: Normal auscultation Murmur: No - Abdominal Inspection: Normal Distension: No distension Bowel sounds: Normal Tenderness: Nontender Organomegaly: No organomegaly - Back Back: Normal, Nontender - Extremities General upper extremity: Normal inspection, Nontender, Normal color, Normal ROM , Normal temperature General lower extremity: Normal inspection, Nontender, Normal color, Normal ROM , Normal temperature, Normal weight bearing. No: Nimesh's sign - Neurological Neuro grossly intact: Yes Cognition: Normal Orientation: AAOx4 Jose Coma Scale Eye Opening: Spontaneous [place] Coma Scale Verbal: Oriented [place] Coma Scale Motor: Obeys Commands [place] Coma Scale Total: 15 Speech: Normal Motor strength normal: LUE, RUE, LLE, RLE Sensory: Normal - Psychological Associated symptoms: Normal affect, Normal mood - Skin Skin Temperature: Warm Skin Moisture: Dry Skin Color: Normal Course - Re-evaluation Re-evalutation: 02/18/17 15:14 Examination shows reproducible chest wall pain to palpation. Lab work does not show any focal pathology at this time troponin is negative EKG shows left bundle branch block otherwise negative. I did discuss with patient's primary care physician. More likely having chest pain is related to her chest wall and not cardiac however we will admit the patient for further evaluation - Vital Signs Vital signs: Temp Pulse Resp BP Pulse Ox 98.1 F 76 18 172/63 H 96 02/18/17 09:30 02/18/17 09:30 02/18/17 13:31 02/18/17 13:31 02/18/17 13:31 - Laboratory Result Diagrams: 02/18/17 09:52 02/18/17 09:52 Laboratory results interpreted by me: 02/18/17 02/18/17 02/18/17 09:52 09:52 11:56 RBC 3.23 L Hgb 10.2 L Hct 31.7 L MCV 98 H Potassium 3.5 L Chloride 108 H Glucose 114 H Alkaline Phosphatase 145 H Urine Protein 30 H Urine Ketones TRACE H Urine Ascorbic Acid 40 H Discharge - Discharge Clinical Impression: Chest pressure, Fracture of head of humerus Condition: Fair Disposition: ADMITTED INPATIENT Admitting Provider: [facility] Admitted: [facility]
[2017-02-18 16:36] LABS: CREATINE KINASE MB 1.93 ng/mL (<4.55); TROPONIN I 0.021 ng/mL
[2017-02-18] MEDS ORDERED: ALBUTEROL SULFATE HFA (90 MCG/PUFF) 8 GM MDI (1 MDI/ER DISP) IH PRN (17:04)
[2017-02-18] MEDS ORDERED: NITROGLYCERIN/D5W 250 ML IV PRN (17:04)
[2017-02-18] MEDS ORDERED: LOPERAMIDE HCL 2 MG CAPSULE PO PRN (17:04)
--- NOTE | 2017-02-18 17:18 | PDOC H&P ---
History of Present Illness Admission Date/PCP: 02/18/17 12:49 ITALO PALMER, Patient complains of: Chest pain, shortness of breath History of Present Illness: PEDRO PEREZ is a 81 year old female Past Medical History Cardiac Medical History: Reports: Atrial Fibrillation, Hyperlipidema, Hypertension, Heart Murmur Denies: Congestive Heart Failure, Coronary Artery Disease, Myocardial Infarction, Peripheral Vascular Disease, Pulmonary Embolism Pulmonary Medical History: Reports: Chronic Obstructive Pulmonary Disease (COPD) Denies: Asthma, Bronchitis, Pneumonia, Respiratory Failure, Sleep Apnea, Tuberculosis Neurological Medical History: Denies: Seizures Endocrine Medical History: Reports: Hypothyroidism Denies: Hyperthyroidism Renal/ Medical History: Denies: End Stage Renal Disease Malignancy Medical History: Denies: Breast Cancer, Cervical Cancer, Leukemia, Lung Cancer, Ovarian Cancer GI Medical History: Denies: Crohn's Disease, Gastroesophageal Reflux Disease, Hepatitis, Hiatal Hernia - diverticulitis Musculoskeltal Medical History: Reports: Arthritis, Other Denies: Fibromyalgia Psychiatric Medical History: Reports: Dementia, Depression Denies: Bipolar Disorder, Post Traumatic Stress Disorder Hematology: Reports: Anemia Denies: Hemophilia, Sickle Cell Disease Infectious Medical History: Denies: HIV Past Surgical History Past Surgical History: Reports: Orthopedic Surgery - L shoulder replacement, left hip, Tubal Ligation, Valve Replacement, Other - Right mastoid surgery for chronic mastoiditis Denies: Amputation, Appendectomy, Section, Cholecystectomy, Colostomy, Coronary Artery Bypass Graft, Gastric Bypass Surgery, Herniorrhaphy, Hysterectomy, Mastectomy, Pacemaker, Tonsillectomy Social History Information Source: Patient Lives with: [facility] - We will have the Smoking Status: Never Smoker Frequency of Alcohol Use: None Hx Recreational Drug Use: No Drugs: None Hx Prescription Drug Abuse: No - Advance Directive Resuscitation Status: Do Not Resuscitate Family History Family History: Reviewed & Not Pertinent Parental Family History Reviewed: Yes Children Family History Reviewed: Yes Sibling(s) Family History Reviewed.: Yes Medication/Allergy Home Medications: Acetaminophen [Tylenol 325 mg Tablet] 650 mg PO Q4HP PRN 09/07/16 Aspirin [Aspirin 325 mg Tablet] 325 mg PO DAILY 09/07/16 Atorvastatin Calcium [Lipitor 10 mg Tablet] 10 mg PO QHS 09/07/16 Bupropion HCl [Wellbutrin 100 mg Tablet] 100 mg PO Q8 09/07/16 Docusate Sodium [Colace 100 mg Capsule] 100 mg PO BID 09/07/16 Ferrous Sulfate [Feosol 325 mg Tablet] 325 mg PO BID 09/07/16 Fluticasone Propionate [Flonase Nasal [place] 50 Mcg/[place] 16 gm] 1 spray NAREB DAILY 09/07/16 Furosemide [Lasix 40 mg Tablet] 40 mg PO BID 09/07/16 Gabapentin [Neurontin 100 mg Capsule] 100 mg PO Q8 09/07/16 Isosorbide Mononitrate [Isosorbide Mononitrate ER] 30 mg PO DAILY 09/07/16 Levothyroxine Sodium [Synthroid] 50 mcg PO QAM 09/07/16 Loratadine [Claritin 10 mg Tablet] 10 mg PO DAILY 09/07/16 Memantine HCl [Namenda] 5 mg PO QHS 09/07/16 Metoprolol Tartrate [Lopressor 50 mg Tablet] 50 mg PO Q12 09/07/16 Omeprazole 40 mg PO QAM 09/07/16 Potassium Chloride [Klor-Con Sprinkle] 10 meq PO BID 09/07/16 Sertraline HCl [Zoloft 50 mg Tablet] 50 mg PO QPM 09/07/16 Albuterol Sulfate [Ventolin HFA MDI 18 GM] 2 puff IH Q4HP PRN 02/18/17 Hydromorphone HCl [Dilaudid 2 mg Tablet] 2 mg PO Q4HP PRN 02/18/17 Ibuprofen [Motrin 600 mg Tablet] 600 mg PO Q8 02/18/17 Loperamide HCl [Imodium 2 mg Capsule] 2 mg PO DAILYP PRN 02/18/17 Multivitamin [Tab-A-Kali (Multiple Vitamin) Tablet] 1 tab PO DAILY 02/18/17 Allergies/Adverse Reactions: morphine [Morphine] Adverse Reaction (Verified 02/18/17 09:58) oxycodone [Oxycodone] Adverse Reaction (Verified 02/18/17 09:58) Review of Systems All systems: as per PMH Physical Exam Vital Signs: Temp Pulse Resp BP Pulse Ox 98.4 F 85 18 180/63 H 95 02/18/17 15:07 02/18/17 15:24 02/18/17 15:07 02/18/17 15:07 02/18/17 16:46 General appearance: PRESENT: mild distress Head exam: PRESENT: atraumatic Eye exam: PRESENT: conjunctiva pink Neck exam: ABSENT: carotid bruit Respiratory exam: PRESENT: rhonchi Cardiovascular exam: PRESENT: +S1, +S2 Pulses: PRESENT: +1 pedal pulses bilateral Vascular exam: PRESENT: normal capillary refill Extremities exam: PRESENT: tenderness Additional comments: Right humeral fracture Musculoskeletal exam: PRESENT: tenderness Neurological exam: PRESENT: alert Psychiatric exam: PRESENT: anxious Results Laboratory Results: 02/18/17 02/18/17 13:20 15:52 CK-MB (CK-2) 1.93 Troponin I 0.037 0.021 Impressions: Chest X-Ray 02/18/17 09:33 IMPRESSION: STABLE CHRONIC CHANGES. BORDERLINE CARDIOMEGALY. LINEAR ATELECTASIS/SCARRING. NO ACUTE RADIOGRAPHIC FINDING IN THE CHEST. Assessment & Plan - Diagnosis (1) Chest pain due to myocardial ischemia Qualifiers: Ischemic chest pain type: unspecified angina pectoris type Qualified Code(s): I20.9 - Angina pectoris, unspecified Plan: We will get cardiac enzymes, EKG, will start nitroglycerin drip and anticoagulation. Continue home medications including aspirin and metoprolol (2) Shortness of breath Plan: We will obtain echocardiogram to evaluate the valve after a valve replacement (3) Hypertension Is this a current diagnosis for this admission?: YesPlan: We will continue current antihypertensives. (4) Humeral head fracture Qualifiers: Laterality: right Is this a current diagnosis for this admission?: YesPlan: We will continue pain management. The patient will need a tertiary care evaluation for possible surgery according to the orthopedics
[2017-02-18] MEDS ORDERED: POTASSIUM CHLORIDE 10 MEQ PO SCH (18:00)
[2017-02-18] MEDS: DOCUSATE SODIUM 100 MG CAPSULE PO SCH (18:13)
[2017-02-18] MEDS: FUROSEMIDE 40 MG TABLET PO SCH (18:13)
[2017-02-18] MEDS: FERROUS SULFATE 325 MG TABLET PO SCH (18:13)
[2017-02-18] MEDS: SERTRALINE HCL 50 MG TABLET PO SCH (18:13)
--- NOTE | 2017-02-18 19:04 | EKG REPORT ---
SEVERITY:- ABNORMAL ECG - SINUS RHYTHM LEFT BUNDLE BRANCH BLOCK : Confirmed by: Gray Coles MD 18-Feb-2017 19:02:48
[2017-02-18] MEDS: METOPROLOL TARTRATE 50 MG TABLET PO SCH (21:37)
[2017-02-18] MEDS: ATORVASTATIN CALCIUM 10 MG TABLET PO SCH (21:38)
[2017-02-18] MEDS: MEMANTINE HCL 10 MG TABLET PO SCH (21:39)
[2017-02-18] MEDS: BUPROPION HCL 100 MG TABLET PO SCH (21:39)
[2017-02-18] MEDS: GABAPENTIN 100 MG CAPSULE PO SCH (21:39)
[2017-02-18] MEDS: ENOXAPARIN SODIUM INJ 80 MG/0.8 ML DISP.SYRIN SUBCUT SCH (21:40)
[2017-02-18] MEDS: HYDROMORPHONE HCL 2 MG TABLET PO PRN (21:41)
[2017-02-18] MEDS ORDERED: (PENDING PHARMACY ID) (Memantine Hcl [Namenda] 5 MG) PO SCH (22:00)
[2017-02-18 22:38] LABS: CREATINE KINASE MB 2.55 ng/mL (<4.55); TROPONIN I 0.056 ng/mL
[2017-02-19] MEDS: HYDROMORPHONE HCL 2 MG TABLET PO PRN ×2 (04:01→13:40)
[2017-02-19 04:59] LABS: CREATINE KINASE MB 2.41 ng/mL (<4.55); TROPONIN I 0.06 ng/mL
[2017-02-19] MEDS: BUPROPION HCL 100 MG TABLET PO SCH ×3 (05:13→21:23)
[2017-02-19] MEDS: LANSOPRAZOLE 30 MG TAB.RAP.DR PO SCH (05:13)
[2017-02-19] MEDS: LEVOTHYROXINE SODIUM 0.05 MG TABLET PO SCH (05:14)
[2017-02-19] MEDS: GABAPENTIN 100 MG CAPSULE PO SCH ×3 (05:14→21:22)
[2017-02-19] MEDS: PROMETHAZINE HCL 25 MG TABLET PO PRN ×2 (05:15→13:39)
--- NOTE | 2017-02-19 07:54 | PDOC PROGRESS REPORT ---
Subjective Progress Note for:: 02/19/17 Subjective:: The patient states to feel slightly better. Her breathing has improved. Her chest discomfort has improved with nitroglycerin. Physical Exam Vital Signs: Temp Pulse Resp BP Pulse Ox 98.3 F 71 18 164/55 H 97 02/19/17 03:00 02/19/17 07:00 02/19/17 03:00 02/19/17 06:00 02/19/17 06:00 Intake & Output 02/18/17 02/19/17 02/20/17 06:59 06:59 06:59 Intake Total 153 Balance 153 Weight 78.7 kg General appearance: PRESENT: mild distress Head exam: PRESENT: atraumatic Eye exam: PRESENT: conjunctiva pink Neck exam: ABSENT: carotid bruit Respiratory exam: PRESENT: clear to auscultation maura Cardiovascular exam: PRESENT: +S1, +S2 Pulses: PRESENT: +1 pedal pulses bilateral GI/Abdominal exam: PRESENT: normal bowel sounds, soft Extremities exam: PRESENT: tenderness Musculoskeletal exam: PRESENT: tenderness Neurological exam: PRESENT: alert Results Laboratory Results: 02/18/17 02/18/17 02/18/17 13:20 15:52 21:57 CK-MB (CK-2) 1.93 2.55 Troponin I 0.037 0.021 0.056 02/19/17 04:08 CK-MB (CK-2) 2.41 Troponin I 0.060 Impressions: Chest X-Ray 02/18/17 09:33 IMPRESSION: STABLE CHRONIC CHANGES. BORDERLINE CARDIOMEGALY. LINEAR ATELECTASIS/SCARRING. NO ACUTE RADIOGRAPHIC FINDING IN THE CHEST. Assessment & Plan - Diagnosis (1) Chest pain due to myocardial ischemia Qualifiers: Ischemic chest pain type: unspecified angina pectoris type Qualified Code(s): I20.9 - Angina pectoris, unspecified Plan: Much improved with nitroglycerin drip. We will continue and recheck enzymes. (2) Shortness of breath Plan: Slight improvement with nitroglycerin drip and nebulization treatments (3) Hypertension Is this a current diagnosis for this admission?: YesPlan: We will continue current antihypertensives. (4) Humeral head fracture Qualifiers: Laterality: right Is this a current diagnosis for this admission?: YesPlan: We will continue pain management. The patient will need a tertiary care evaluation for possible surgery according to the orthopedics
--- NOTE | 2017-02-19 08:10 | EKG REPORT ---
SEVERITY:- ABNORMAL ECG - SINUS RHYTHM PROBABLE LEFT ATRIAL ABNORMALITY LEFT BUNDLE BRANCH BLOCK : Confirmed by: Gray Coles MD 19-Feb-2017 08:09:13
[2017-02-19] MEDS: MULTIVITAMIN TABLET PO SCH (10:27)
[2017-02-19] MEDS: FERROUS SULFATE 325 MG TABLET PO SCH ×2 (10:27→17:47)
[2017-02-19] MEDS: DOCUSATE SODIUM 100 MG CAPSULE PO SCH ×2 (10:28→17:47)
[2017-02-19] MEDS: FUROSEMIDE 40 MG TABLET PO SCH ×2 (10:29→17:48)
[2017-02-19] MEDS: METOPROLOL TARTRATE 50 MG TABLET PO SCH ×2 (10:29→21:23)
[2017-02-19] MEDS: ASPIRIN 81 MG TABLET, ENT COATED PO SCH (10:29)
[2017-02-19] MEDS: POTASSIUM CHLORIDE 10 MEQ TABLET.SA PO SCH ×2 (10:30→17:47)
[2017-02-19] MEDS: ENOXAPARIN SODIUM INJ 80 MG/0.8 ML DISP.SYRIN SUBCUT SCH ×2 (10:30→21:36)
--- NOTE | 2017-02-19 14:19 | XCELERA REPORT ---
[address] [address] Transthoracic Echocardiogram Report Name: PEDRO PEREZ Age: 81 yrs Gender: Female : 1935 Patient Status: Inpatient Patient Location: [id number] Study Date: 02/19/2017 09:04 AM Height: 60 in Weight: 160 lb BSA: 1.7 m2 Procedure: A two-dimensional transthoracic echocardiogram with color flow and Doppler was performed. Study Quality: Technically suboptimal. Porr endocardial visualistion and poor doppler interogation. Images were not obtained from all of the standard acoustic windows due to the limited scope of the study. Reason For Study: CHEST PAIN / AVR History: CHEST PAIN / AVR. Ordering Physician: ITALO PALMER Performed By: Nadine Yan Interpretation Summary Recommend antibiotics for SBE prophylaxis prior to dental , GI , procedures / surgeries. The left ventricle is normal in size. There is mild concentric left ventricular hypertrophy. No 'true apical 2 chamber views' obtained.Hence cannot comment on the basal and apical anterior wall, and the basal and apical anterior wall.The mid anterior and the mid inferior, and the rest of of the LV perry contract normally.In these views LVEF is normal and is greater than 60%. Doppler measurements suggest impaired left ventricular relaxation, which is associated with grade I/IV or mild diastolic dysfunction The right ventricle is grossly normal size. The left atrial size is normal. There is no evidence of mitral valve prolapse. There is mild mitral stenosis There is a trace amount of mitral regurgitation No aortic regurgitation is present. There is no LVOT obstruction. There is a bioprosthetic aortic valve. There is a peak gradient of 25 mm , across the aortic valve, and this is probably normal foe a bioprosthetic valve. There is no pericardial effusion. Recommend antibiotics for SBE prophylaxis prior to dental , GI , procedures / surgeries. MMode/2D Measurements \T\ Calculations RVDd: 2.9 cm LVIDd: 4.5 cm FS: 39.7 % Ao root diam: 2.2 cm IVSd: 1.2 cm LVIDs: 2.7 cm EDV(Teich): 91.6 ml LVPWd: 1.2 cm ESV(Teich): 27.1 ml Ao root area: 3.8 cm2 EF(Teich): 70.4 % LA dimension: 4.0 cm LVOT diam: 2.0 cm LVOT area: 3.0 cm2 Doppler Measurements \T\ Calculations MV E max anurag: MV V2 max: MV P1/2t max anurag: Ao V2 max: 138.8 cm/sec 255.8 cm/sec 140.4 cm/sec 251.1 cm/sec MV A max anurag: MV max PG: MV P1/2t: 104.4 msec Ao max P.0 cm/sec 26.2 mmHg MVA(P1/2t): 2.1 cm2 25.2 mmHg MV E/A: 0.61 MV V2 mean: MV dec slope: Ao V2 mean: 151.3 cm/sec 393.8 cm/sec2 171.2 cm/sec MV mean PG: Ao mean P.9 mmHg 14.1 mmHg MV V2 VTI: Ao V2 VTI: 59.1 cm 48.2 cm MVA(VTI): 1.6 cm2 SAE(I,D): 2.0 cm2 SAE(V,D): 2.2 cm2 LV V1 max PG: SV(LVOT): 94.5 mlPA V2 max: TR max anurag: 13.1 mmHg 116.3 cm/sec 271.5 cm/sec LV V1 mean PG: PA max P.4 mmHg TR max P.8 mmHg 29.5 mmHg LV V1 max: 181.0 cm/sec LV V1 mean: 129.6 cm/sec LV V1 VTI: 31.5 cm Left Ventricle The left ventricle is normal in size. There is mild concentric left ventricular hypertrophy. No 'true apical 2 chamber views' obtained.Hence cannot comment on the basal and apical anterior wall, and the basal and apical anterior wall.The mid anterior and the mid inferior, and the rest of of the LV perry contract normally.In these views LVEF is normal and is greater than 60%. Doppler measurements suggest impaired left ventricular relaxation, which is associated with grade I/IV or mild diastolic dysfunction. There is no thrombus. Right Ventricle The right ventricle is grossly normal size. The right ventricle is not well visualized secondary to technical limitations. Atria The right atrium is normal. The left atrial size is normal. Mitral Valve There is mild to moderate mitral annular calcification. There is no evidence of mitral valve prolapse. There is no vegetation seen on the mitral valve. There is mild mitral stenosis. There is a trace amount of mitral regurgitation. Aortic Valve There is no LVOT obstruction. No aortic regurgitation is present. There is a bioprosthetic aortic valve. There is a peak gradient of 25 mm , across the aortic valve, and this is probably normal foe a bioprosthetic valve. Tricuspid Valve There is no tricuspid stenosis. No tricuspid regurgitation. Great Vessels The aortic root is not well visualized. Effusions There is no pericardial effusion. : ITALO PALMER > Chayo Dumont
[2017-02-19] MEDS: SERTRALINE HCL 50 MG TABLET PO SCH (17:47)
[2017-02-19] MEDS: ATORVASTATIN CALCIUM 10 MG TABLET PO SCH (21:23)
[2017-02-19] MEDS: MEMANTINE HCL 10 MG TABLET PO SCH (21:24)
--- NOTE | 2017-02-20 00:44 | CONSULTATION REPORT E ---
Consultation Report NAME: PEDRO PEREZ : 1935 AGE: 81Y DATE: 02/19/2017 319 A TO: LILI LINDSEY M.D. FROM: ITALO PALMER M.D. Requesting Physician NOTE: The patient was seen from 11 a.m. to 11:45, a total of 40 minutes spent on this patient. Note that the patient's [id number]-[id number] was with the patient when I saw her. REASON FOR CONSULTATION: Chest pain and shortness of breath in a patient with a history of TAVR in 2013. HISTORY OF PRESENT ILLNESS: The patient has mild dementia and has some confusion but able to give some degree of history along with the patient's sztvklep-qu-gwy. The patient is an 81-year-old female with a known history of transaortic valve replacement in 2013 for aortic stenosis, hypertension, hypothyroidism, slipped on a floor mat in mid January and sustained a fracture of her right shoulder and right humerus, and she referred to Dr. Vizcarra for further management. The patient was admitted to [facility] approximately 1 week ago for surgical repair of the right shoulder. The yjbmelrg-jh-hsj states that as soon as they gave her the block to the shoulder given by anesthesia, the patient had respiratory arrest and stopped breathing and had to be intubated. She was in the hospital for 4 days and was subsequently released, and they told her and the family that the patient needed shoulder surgery in a tertiary care center. The patient went home and started having chest pain and pressure, which is reproducible by pressing on the chest and *------* noncardiac. Her EKG shows chronic left bundle branch block pattern and, hence, nondiagnostic. Her troponin I is negative/indeterminate and not suggestive of a non-ST elevation PA. Note: When she had the TAVR in [place] in 2013, her cardiac catheterization showed nonobstructive coronary artery disease. She also has been having episodes of shortness of breath which the patient finds it difficult to describe but there is no cough or sputum production. There is no wheezing. There is no PND or orthopnea. The patient has a past history of atrial fibrillation but no recent palpitations or symptoms suggestive that the patient had atrial fibrillation. There is no leg edema. There are no TIA or CVA symptoms. PAST MEDICAL HISTORY: Positive for history of hypertension, history of TAVR, no significant coronary artery disease by catheterization in 2013. She has no history of chronic kidney disease. She has no history of diabetes mellitus but has a history of hypothyroidism. She has a history of hyperlipidemia. She has no history of TIA or CVA. There is no history of chronic kidney disease. There is no history of headaches, migraines or seizures. The patient has a history of anxiety and depression and also has dementia. She also has GERD but no history of GI bleed. The patient recently fractured her right shoulder after an accidental fall. There was no syncope. PAST SURGICAL HISTORY: She has a history of left shoulder surgery, left hip replacement, tubal ligation, transaortic valve replacement and right mastoid surgery for chronic mastoiditis. FAMILY HISTORY: Positive for hypertension, negative for coronary artery disease. SOCIAL HISTORY: The patient is not a smoker, has never smoked. There is no history of EtOH abuse. ALLERGIES: 1. MORPHINE. 2. OXYCODONE. ADVANCED DIRECTIVES: The patient is a DNR. Her son is her surrogate healthcare decision maker. MEDICATIONS: 1. Tylenol 650 mg p.o. q.4 h. p.r.n. 2. Albuterol sulfate 2 puff inhalation q.4 h. p.r.n. 3. Aspirin 81 mg p.o. daily. 4. Atorvastatin 10 mg p.o. at bedtime. 5. Wellbutrin 100 mg p.o. q.8 h. 6. Colace 100 mg p.o. b.i.d. 7. Lovenox 70 mg subcutaneously q.12 h. 8. Ferrous sulfate 325 mg p.o. b.i.d. 9. Lasix 40 mg p.o. b.i.d. 10. Neurontin 100 mg p.o. q.8 h. 11. Hydromorphone 2 mg p.o. q.4 h. p.r.n. 12. IV nitroglycerin drip. 13. Lansoprazole 30 mg p.o. q.6 a.m. 14. Levothyroxine 0.05 mg p.o. q.a.m. 15. Imodium 2 mg p.o. daily p.r.n. loose stools. 16. Namenda 5 mg p.o. at bedtime. 17. Metoprolol 50 mg p.o. q.12 h. 18. Multivitamin 1 tablet p.o. daily. 19. Nitroglycerin 1 tablet sublingual q.5 minutes p.r.n. 20. KCl 10 mEq p.o. b.i.d. 21. Phenergan 6.25 mg p.o. q.6 h. p.r.n. 22. Zoloft 50 mg p.o. q.8 p.m. REVIEW OF SYSTEMS: CONSTITUTIONAL: Denies any fever, chills or rigors. Complains of generalized fatigue and weakness. HEENT: Head: Denies headaches or head injury. Eyes: No history of amblyopia or diplopia. No history of amaurosis fugax. Ears: No history of tinnitus, no history of vertigo, no history of hearing loss. Nose: There is no history of nosebleeds. There is no history of nasal polyps. There is no history of hay fever. Mouth: No history of altered taste sensation, no ulcers in the mouth, no bleeding from the gums. Throat: There is no odynophagia or dysphagia, no recurrent sore throats. SKIN: There is no pruritus. There is no yellowish discoloration of the skin. There is no psoriasis. There is no skin cancer. NECK: Denies any neck pain and painless or painful swelling of the neck. There is no goiter. LUNGS: History of shortness of breath but no wheezing. No history of asthma or COPD. No history of sleep apnea. No history of pulmonary embolism. No history of pleuritic chest pain. Complains of shortness of breath without any cough, wheezing or sputum production. She also has dyspnea on exertion with more than mild exertion. There are no symptoms suggestive of upper respiratory tract infection or pneumonia. CARDIAC: History of chest pains, reproducible by pressing on the chest which the patient claims is the symptom. I have asked the patient many times and I get the same answer that this is reproducible pain. Note: She did not have any significant coronary artery disease which is nonobstructive when she had the TAVR. She had transaortic valve replacement for aortic stenosis in 2013. She has no history of congestive heart failure, history of atrial fibrillation with no recurrence. History of hypertension. No history of PND or orthopnea. No recent palpitations, no syncope. GASTROINTESTINAL: History of GERD. No history of jaundice. No history of fatty food intolerance. No history of GI bleed. No history of altered bowel movements. No history of hepatitis. No history of cirrhosis. No history of jaundice. RENAL: No history of chronic kidney disease. No symptoms of UTI. No history of hematuria, polyuria or dysuria. MUSCULOSKELETAL: Complains of arthritis and pain in the right shoulder due to fracture. There is no history of collagen vascular disease. ENDOCRINE: No history of diabetes mellitus type. No history of polydipsia or polyuria. History of hypothyroidism. No history of heat or cold intolerance. No history of hirsutism. No history of excessive sweating. CENTRAL NERVOUS SYSTEM: No history of TIA or CVA. No history of headaches, migraines or seizures. No gait imbalance. PSYCHIATRIC: History of dementia, mild. History of anxiety and depression; the patient is on multiple psychiatric medications. VASCULAR: No history of calf or buttock claudication. No history of DVT. HEMATOLOGICAL: No history of bleeding diathesis. No history of clotting disorders. The patient's hemoglobin is around 10 and the patient is on iron replacement. PHYSICAL EXAMINATION: VITAL SIGNS: The patient is afebrile with a temperature of 97.8 degrees Fahrenheit, pulse is 72 beats per minute, blood pressure is 136/57, respirations 16 per minute, 02 sats are 97% on room air. HEENT: Head is atraumatic, normocephalic. Eyes: Pupils are equal, round, regular, reactive to light and accommodation. There is no conjunctival pallor. There is no scleral icterus. Ears: Tympanic membranes are intact. External auditory canals are clear. Nose: There is no deviated nasal septum. There is no inflammation of the nasal mucous membranes. Mouth: Mucous membranes of the mouth are moist. Tongue is moist. There are no ulcers. There is no bleeding from the gums. Throat: There is no redness of the oropharynx. There are no exudates. SKIN: There are no skin rashes. There is no petechia or ecchymosis. There are no skin lesions. NECK: Supple. There is no JVD. Carotids are equal. There is no bruit. There is no lymphadenopathy. There is no goiter. Trachea is central. LUNGS: Clear to auscultation and percussion. There is tenderness of the front lower sternal area which reproduces the patient's pressure and pain symptoms. HEART: S1 and S2 are heard. There is no S3 gallop. There is no S4 gallop. There is a murmur of mild aortic stenosis present. There is no aortic stenosis murmur. There is no significant mitral regurgitation murmur. There is no rub. ABDOMEN: Soft, nontender. There is no hepatosplenomegaly. Bowel sounds are well heard. There are no tender areas or masses. EXTREMITIES: Femorals are diminished. There are no femoral bruits. Leg pulses are diminished. There is no pedal edema. There is no DVT or cellulitis. There is no cyanosis or clubbing. There is no calf tenderness. CENTRAL NERVOUS SYSTEM: The patient is conscious, at times is a little confused but seems to answer questions appropriately at present. There is no focal deficit. PSYCHIATRIC: The patient does not appear to be anxious or depressed. She does recognize me by my name. DIAGNOSTIC TEST RESULTS: The patient's chest x-ray shows stable chronic changes, borderline cardiomegaly, linear atelectasis and scarring. No acute radiographic findings of the chest. No evidence of congestive heart failure. There is normal vasculature. The patient's EKG shows sinus rhythm with left bundle branch block pattern. The repeat EKG is the same. tachycardia and nonspecific IVCD. The first EKG showed sinus rhythm, first-degree AV block and nonspecific IVCD. The second EKG done yesterday shows sinus tachycardia, PACs and nonspecific IVCD. The patient's laboratory data shows a white count is 5700, hemoglobin is 10.2, hematocrit is 31.7, and platelet count is 229,000. The patient's sodium is 142.7, potassium is low at 3.5, chloride is 108, CO2 is 24, the patient's BUN is 12, creatinine 0.70, GFR is greater than 60, glucose is 114, calcium is 9.1, magnesium is normal at 1.9. Her liver function tests are normal except for an alk phos of 145 and CK is negative at 41, CPK-MB's have been negative x4. Troponin I is 0.036, 0.037, 0.021, 0.056 and 0.060. Total protein is 6.6, albumin is 3.8, lipase is 130. The patient had an echocardiogram which was a limited study since there were no true apical two-chamber views obtained. The patient's echocardiogram showed that the mid inferior, mid anterior and rest of the LV wall contracted normally. LV ejection fraction is 60%. Could not comment on the basal and apical anterior wall. The patient's prosthetic aortic valve had a 25 mm gradient across the aortic valve which is acceptable for bioprosthetic aortic valve. There is no aortic regurgitation. There is no evidence of mitral valve prolapse. There is mild mitral stenosis. There is trace amount of mitral regurgitation. There is no tricuspid stenosis, mild tricuspid regurgitation. There is mild pulmonary hypertension and right ventricular systolic pressure is 40 mmHg. RECOMMENDATIONS: 1. Would recommend discontinuing the patient's nitroglycerin and isosorbide. 2. Continue current medications. 3. Would also change the Lovenox to subcutaneous since I do not think this is an acute coronary syndrome. 4. Would recommend getting a pulmonary CT angiogram to make sure that the patient does not have pulmonary emboli and also will schedule the patient for IV Lexiscan Cardiolite stress test to make sure that the patient has not had any progressive coronary artery disease. IMPRESSION: 1. Chest pain noncardiac but would get an IV Lexiscan Cardiolite stress test to make sure the patient's coronary artery disease has not progressed. 2. Shortness of breath, question etiology. Will get a pulmonary CTA to make sure the patient has no pulmonary emboli. 3. No significant CAD by cath in 2013. 4. Right shoulder/humerus fracture. Also the stress test will be for preop cardiac risk assessment also. 5. Hypertension. 6. History of transaortic valve replacement. 7. History of paroxysmal atrial fibrillation. No recurrence. 8. Dementia. 9. Anxiety. 10. Depression. 11. GERD. 12. Hyperlipidemia. As mentioned earlier, would stop the patient's Lovenox and change it to DVT/PE prophylaxis doses. Would also stop the patient's IV nitroglycerin and nitrates. Continue her metoprolol, continue her Synthroid and continue anti-psych medication. All the above discussed with the patient and will discuss with the patient's son and discuss with Dr. Palmer. NOTE: Forty minutes spent on this patient with more than 50% of the time spent on direct patient care. This involved highly complex medical decision making in view of the patient's dementia and the patient does have a history of transaortic valve replacement and the patient does need preoperative clearance in view of the patient having respiratory arrest after she was given a shoulder block for anesthesia in [place]. Also the patient's medications have been reviewed and medications changes have been suggested to the attending. Will follow with you. Thanking you. DICTATING PHYSICIAN: LILI LINDSEY M.D. [id number] PHY#: [id number] ID: [id number] JOB#: [id number] ACCT: [id number] cc:LILI LINDSEY M.D. >
[2017-02-20] MEDS ORDERED: NITROGLYCERIN/D5W 50 MG/250 ML RTUINJ IV ONE (02:17)
[2017-02-20 06:03] LABS: ABSOLUTE EOSINOPHILS # (AUTO) 0.2 10^3/uL (0.0-0.6); ABSOLUTE LYMPHOCYTES (AUTO) 1.7 10^3/uL (0.5-4.7); ABSOLUTE MONOCYTES (AUTO) 0.8 10^3/uL (0.1-1.4); ABSOLUTE NEUT (AUTO) 4.2 10^3/uL (1.7-8.2); BASOPHILS % (AUTO) 0.7 % (0-2); EOSINOPHILS % (AUTO) 2.8 % (0-6); HEMATOCRIT 28.4 % (36.0-47.0); HGB HCT DIFFERENCE -1.4; LYMPHOCYTES % (AUTO) 24.7 % (13-45); MEAN CORPUSCULAR HEMOGLOBIN 31.7 pg (27.0-33.4); MEAN CORPUSCULAR HGB CONC 31.7 g/dL (32.0-36.0); MEAN CORPUSCULAR VOLUME 100 fl (80-97); MONOCYTES % (AUTO) 11.3 % (3-13); RED BLOOD COUNT 2.84 10^6/uL (3.72-5.28); RED CELL DISTRIBUTION WIDTH 13.8 % (11.5-14.0); SEGMENTED NEUTROPHILS % (AUTO) 60.5 % (42-78); WHITE BLOOD COUNT 6.9 10^3/uL (4.0-10.5)
[2017-02-20 06:13] LABS: ANION GAP 9 (5-19); BLOOD UREA NITROGEN 14 mg/dL (7-20); CALCIUM 7.9 mg/dL (8.4-10.2); CARBON DIOXIDE 25 mmol/L (22-30); CHLORIDE 108 mmol/L (98-107); CREATININE RESULT 1.16 mg/dL (0.52-1.25); GLUCOSE 89 mg/dL (75-110); POTASSIUM 3.6 mmol/L (3.6-5.0)
[2017-02-20] MEDS: LANSOPRAZOLE 30 MG TAB.RAP.DR PO SCH (06:43)
[2017-02-20] MEDS: BUPROPION HCL 100 MG TABLET PO SCH ×3 (06:43→21:29)
[2017-02-20] MEDS: LEVOTHYROXINE SODIUM 0.05 MG TABLET PO SCH (06:43)
[2017-02-20] MEDS: GABAPENTIN 100 MG CAPSULE PO SCH ×3 (06:44→21:29)
--- NOTE | 2017-02-20 08:38 | PDOC PROGRESS REPORT ---
Subjective Progress Note for:: 02/20/17 Subjective:: The patient states to feel better. She had a echocardiogramn which was unremarkable. Valve seemed to be functioning well. She has been out of bed to chair and denies any shortness of breath. She is still having chest wall pain. Physical Exam Vital Signs: Temp Pulse Resp BP Pulse Ox 98.3 F 59 L 18 136/45 H 99 02/20/17 03:56 02/20/17 06:52 02/20/17 03:56 02/20/17 06:00 02/20/17 06:00 Intake & Output 02/19/17 02/20/17 02/21/17 06:59 06:59 06:59 Intake Total 153 1263 Output Total 0 Balance 153 1263 Weight 78.7 kg 79 kg General appearance: PRESENT: mild distress Head exam: PRESENT: atraumatic Eye exam: PRESENT: conjunctiva pink Neck exam: ABSENT: carotid bruit Respiratory exam: PRESENT: clear to auscultation maura Cardiovascular exam: PRESENT: +S1, +S2 Pulses: PRESENT: +1 pedal pulses bilateral GI/Abdominal exam: PRESENT: soft Musculoskeletal exam: PRESENT: deformity, tenderness Results Laboratory Results: 02/20/17 00:29 02/20/17 00:29 02/20/17 02/20/17 00:29 00:29 WBC 6.9 RBC 2.84 L Hgb 9.0 L Hct 28.4 L MCV 100 H MCH 31.7 MCHC 31.7 L RDW 13.8 Plt Count 210 Seg Neutrophils % 60.5 Lymphocytes % 24.7 Monocytes % 11.3 Eosinophils % 2.8 Basophils % 0.7 Absolute Neutrophils 4.2 Absolute Lymphocytes 1.7 Absolute Monocytes 0.8 Absolute Eosinophils 0.2 Absolute Basophils 0.0 Sodium 142.0 Potassium 3.6 Chloride 108 H Carbon Dioxide 25 Anion Gap 9 BUN 14 Creatinine 1.16 Est GFR ( Amer) 54 L Est GFR (Non-Af Amer) 45 L Glucose 89 Calcium 7.9 L 02/18/17 02/18/17 02/18/17 13:20 15:52 21:57 CK-MB (CK-2) 1.93 2.55 Troponin I 0.037 0.021 0.056 02/19/17 04:08 CK-MB (CK-2) 2.41 Troponin I 0.060 Impressions: Chest X-Ray 02/18/17 09:33 IMPRESSION: STABLE CHRONIC CHANGES. BORDERLINE CARDIOMEGALY. LINEAR ATELECTASIS/SCARRING. NO ACUTE RADIOGRAPHIC FINDING IN THE CHEST. Assessment & Plan - Diagnosis (1) Chest pain due to myocardial ischemia Qualifiers: Ischemic chest pain type: unspecified angina pectoris type Qualified Code(s): I20.9 - Angina pectoris, unspecified Plan: Improved. Will consider stress test. (2) Shortness of breath Plan: Slight improvement with nitroglycerin drip and nebulization treatments (3) Hypertension Is this a current diagnosis for this admission?: Yes (4) Humeral head fracture Qualifiers: Laterality: right Is this a current diagnosis for this admission?: YesPlan: We will continue pain management. The patient will need a tertiary care evaluation for possible surgery according to the orthopedics (5) Chest wall pain Plan: The chest wall pain might be related to a recent fall during which the patient had a right humeral fracture
[2017-02-20] MEDS ORDERED: ALBUTEROL SULFATE HFA (90 MCG/PUFF) 200 PUFF/8.5 GM MDI IH PRN (08:44)
[2017-02-20] MEDS: FUROSEMIDE 40 MG TABLET PO SCH ×2 (09:44→17:14)
[2017-02-20] MEDS: DOCUSATE SODIUM 100 MG CAPSULE PO SCH ×2 (09:44→17:14)
[2017-02-20] MEDS: METOPROLOL TARTRATE 50 MG TABLET PO SCH ×2 (09:44→21:30)
[2017-02-20] MEDS: POTASSIUM CHLORIDE 10 MEQ TABLET.SA PO SCH ×2 (09:44→17:14)
[2017-02-20] MEDS: MULTIVITAMIN TABLET PO SCH (09:44)
[2017-02-20] MEDS: FERROUS SULFATE 325 MG TABLET PO SCH ×2 (09:44→17:14)
[2017-02-20] MEDS: ENOXAPARIN SODIUM INJ 80 MG/0.8 ML DISP.SYRIN SUBCUT SCH ×2 (09:44→21:30)
[2017-02-20] MEDS: ASPIRIN 81 MG TABLET, ENT COATED PO SCH (09:44)
--- NOTE | 2017-02-20 09:56 | Physician Advisory Note ---
Physician Advisor ProgressNote .: Pursuant to the plan for [facility], I have reviewed the medical record for this patient. Physician Advisor Statement: Please consider documentin. Most likely cause of pt's SOB 2. type Afib - persistent? paroxysmal? Thanks! CK
--- NOTE | 2017-02-20 12:43 | PROGRESS NOTE E ---
Progress Note NAME: PEDRO PEREZ : 1935 AGE: 81Y DATE: 02/20/2017 ROOM: 319 SUBJECTIVE: Note, the patient still has some mild chest discomfort reproducible by pressing on the chest, which she claims is a pressure that is reproducible as mentioned above. She denies any shortness of breath. There is no PND or orthopnea. There is no recurrence of atrial fibrillation. The patient remains in sinus rhythm. There is no TIA or CVA symptoms. PHYSICAL EXAMINATION: GENERAL: The patient is mildly obese, well groomed, in no acute distress. VITAL SIGNS: She is afebrile with a temperature of 97.8 degrees Fahrenheit. Pulse is 61 beats per minute. Blood pressure is 135/54. Respirations are 18 per minute. O2 sats are 99% on 1.5 L nasal cannula. HEENT: Head is atraumatic and normocephalic. Eyes - Pupils are equal, round, regular, reactive to light and accommodation. Extraocular movements are normal. There is no conjunctival pallor. There is no scleral icterus. ENT is negative. NECK: Supple. There is no JVD. Carotids are equal. There is no bruit. There is no carotid delay. There is transmitted aortic murmur, mild, through to both carotids. There is no lymphadenopathy. There is no JVD. There is no goiter. Trachea is central. LUNGS: Clear to auscultation and percussion. There is minimal discomfort/reproduction of chest pressure on pressing on the lower part of the chest. HEART: S1 and S2 is heard. There is no S3 gallop. There is no S4 gallop. There is a murmur of mild aortic stenosis present. There is no aortic regurgitation present. There is a systolic murmur at the apex with mild radiation to the axilla. There is a rub. There is no S3 or S4 gallops. ABDOMEN: Soft, obese, nontender. There is no hepatosplenomegaly. Bowel sounds are well heard. EXTREMITIES: Femorals are diminished. There are no femoral bruits. Leg pulses are diminished. There is no pedal edema. There is no DVT or cellulitis. There is no cyanosis or clubbing. There is no calf tenderness. CENTRAL NERVOUS SYSTEM: The patient is conscious, awake, alert, and oriented x3 with no focal deficits. PSYCHIATRIC: The patient does not appear to be anxious or agitated. The patient's judgement today seems to be intact. DIAGNOSTICS: I discussed the echo findings with the patient again and also with the patient's attcnvyv-bd-bax. I told them that the aortic valve was okay. They are aware of taking antibiotics prior to dental, GI or procedures/surgeries to prevent infective endocarditis. The patient's white count is 6900, hemoglobin is 9, hematocrit is 28.4, platelet count is 210,000. The patient's sodium is 142, potassium is 3.6, chloride is 108, CO2 is 25, the patient's BUN is 14, creatinine is 1.16, GFR is mildly reduced at 45 mL which is chronic kidney disease stage III, and the glucose is 89, calcium is 7.9. IMPRESSION AND PLAN: 1. CHEST WALL PAIN, NONCARDIAC, BUT PATIENT WILL BE SCHEDULED FOR IV LEXISCAN CARDIOLITE STRESS TEST TOMORROW. This has been discussed with the patient and the patient's sntbjsei-[id number]. 2. SHORTNESS OF BREATH, RESOLVED. This could be psychogenic in etiology; hence, will not do a CT angiogram since this shortness of breath has resolved. 3. NO SIGNIFICANT CAD BY CATH IN 2014. 4. RIGHT SHOULDER/HUMERUS FRACTURE. Stress test will be for preoperative cardiac risk assessment also. 5. HYPERTENSION, WELL CONTROLLED. 6. HISTORY OF TRANSAORTIC VALVE REPLACEMENT WITH PEAK GRADIENT OF 25 MMHG ACROSS THE PROSTHETIC VALVE WHICH IS PROBABLY NORMAL. 7. HISTORY OF PAROXYSMAL ATRIAL FIBRILLATION, NO RECURRENCE. 8. DEMENTIA, AT PRESENT SEEMS TO BE LUCID WITH NO CONFUSION. 9. ANXIETY. 10. DEPRESSION. 11. GERD. 12. HYPERLIPIDEMIA. RECOMMENDATIONS: Would continue the patient on respiratory treatments. Continue the patient on atorvastatin. Continue antipsychotic medicines. Continue ferrous sulfate. Continue Lasix at 40 mg b.i.d. and continue the patient on metoprolol 50 mg p.o. every 12 hours. As mentioned earlier, will schedule the patient for an IV Lexiscan Cardiolite stress test exam. Note: The patient's medications have been reviewed and I discussed the case with Dr. Plaza, who is the attending physician on the case, and also the patient and the patient's [id number]. NOTE: Moderate complexity medical decision making involved in this case. Will follow with you. DICTATING PHYSICIAN: LILI LINDSEY M.D. [id number] PHY#: [id number] ID: [id number] JOB#: [id number] ACCT: [id number] cc: >
[2017-02-20] MEDS: SERTRALINE HCL 50 MG TABLET PO SCH (17:14)
[2017-02-20] MEDS: PROMETHAZINE HCL 25 MG TABLET PO PRN (17:14)
[2017-02-20] MEDS: ATORVASTATIN CALCIUM 10 MG TABLET PO SCH (21:29)
[2017-02-20] MEDS: MEMANTINE HCL 10 MG TABLET PO SCH (21:29)
[2017-02-21] MEDS: HYDROMORPHONE HCL 2 MG TABLET PO PRN ×4 (04:44→18:15)
[2017-02-21 04:59] LABS: HEMATOCRIT 32.9 % (36.0-47.0); HEMOGLOBIN 10.6 g/dL (12.0-15.5); HGB HCT DIFFERENCE -1.1; MEAN CORPUSCULAR HEMOGLOBIN 31.9 pg (27.0-33.4); MEAN CORPUSCULAR HGB CONC 32.1 g/dL (32.0-36.0); MEAN CORPUSCULAR VOLUME 99 fl (80-97); RED BLOOD COUNT 3.32 10^6/uL (3.72-5.28); RED CELL DISTRIBUTION WIDTH 13.6 % (11.5-14.0)
[2017-02-21 05:09] LABS: APPEARANCE,URINE SLIGHTLY-CLOUDY; BILIRUBIN,URINE NEGATIVE (NEGATIVE); GLUCOSE, URINE NEGATIVE (NEGATIVE); KETONES,URINE NEGATIVE (NEGATIVE); LEUKOCYTE ESTERASE,URINE TRACE (NEGATIVE); NITRITE,URINE NEGATIVE (NEGATIVE); PROTEIN,URINE NEGATIVE (NEGATIVE); URINE SPECIFIC GRAVITY 1.005; UROBILINOGEN,URINE NEGATIVE mg/dL (<2.0)
[2017-02-21] MEDS: LANSOPRAZOLE 30 MG TAB.RAP.DR PO SCH (05:19)
[2017-02-21] MEDS: GABAPENTIN 100 MG CAPSULE PO SCH ×3 (05:19→22:29)
[2017-02-21] MEDS: BUPROPION HCL 100 MG TABLET PO SCH ×3 (05:19→22:28)
[2017-02-21] MEDS: LEVOTHYROXINE SODIUM 0.05 MG TABLET PO SCH (05:19)
[2017-02-21 05:24] LABS: ANION GAP 8 (5-19); BLOOD UREA NITROGEN 16 mg/dL (7-20); CALCIUM 8.8 mg/dL (8.4-10.2); CARBON DIOXIDE 30 mmol/L (22-30); CHLORIDE 108 mmol/L (98-107); CREATININE RESULT 0.96 mg/dL (0.52-1.25); GLUCOSE 90 mg/dL (75-110); MAGNESIUM 1.8 mg/dL (1.6-2.3); POTASSIUM 3.9 mmol/L (3.6-5.0); SODIUM 146.2 mmol/L (137-145)
--- NOTE | 2017-02-21 08:36 | PDOC PROGRESS REPORT ---
Subjective Progress Note for:: 02/21/17 Subjective:: The patient states that she felt better last night. Apparently this morning she was woken up about 4:00 with some chest discomfort. She is presently scheduled for a nuclear stress test. Discussed the possibility of shoulder surgery if the stress test is negative. Discussed also the possibility that her shortness of breath is related to her chest wall contusion after her fall. Physical Exam Vital Signs: Temp Pulse Resp BP Pulse Ox 98.4 F 63 12 146/51 H 100 02/21/17 04:18 02/21/17 04:18 02/21/17 04:18 02/21/17 04:18 02/21/17 04:18 Intake & Output 02/20/17 02/21/17 02/22/17 06:59 06:59 06:59 Intake Total 1263 1196 Output Total 0 1950 Balance 1263 -754 Weight 79 kg 78.7 kg General appearance: PRESENT: mild distress Head exam: PRESENT: atraumatic Eye exam: PRESENT: conjunctiva pink Neck exam: ABSENT: carotid bruit Respiratory exam: PRESENT: clear to auscultation maura Cardiovascular exam: PRESENT: +S1, +S2 Pulses: PRESENT: +1 pedal pulses bilateral GI/Abdominal exam: PRESENT: normal bowel sounds, soft Extremities exam: PRESENT: tenderness Additional comments: Right arm in the sling due to humeral fracture Musculoskeletal exam: PRESENT: tenderness Results Laboratory Results: 02/21/17 04:19 02/21/17 04:19 02/21/17 02/21/17 02/21/17 04:19 04:19 04:35 WBC 5.0 RBC 3.32 L Hgb 10.6 L Hct 32.9 L MCV 99 H MCH 31.9 MCHC 32.1 RDW 13.6 Plt Count 195 Sodium 146.2 H Potassium 3.9 Chloride 108 H Carbon Dioxide 30 Anion Gap 8 BUN 16 Creatinine 0.96 Est GFR ( Amer) > 60 Est GFR (Non-Af Amer) 56 L Glucose 90 Calcium 8.8 Magnesium 1.8 Urine Color YELLOW Urine Appearance SLIGHTLY-CLOUDY Urine pH 5.0 Ur Specific Dairy 1.005 Urine Protein NEGATIVE Urine Glucose (UA) NEGATIVE Urine Ketones NEGATIVE Urine Blood NEGATIVE Urine Nitrite NEGATIVE Ur Leukocyte Esterase TRACE H Urine WBC (Auto) 6 Urine RBC (Auto) 1 02/18/17 02/18/17 02/18/17 13:20 15:52 21:57 CK-MB (CK-2) 1.93 2.55 Troponin I 0.037 0.021 0.056 02/19/17 04:08 CK-MB (CK-2) 2.41 Troponin I 0.060 Impressions: Chest X-Ray 02/18/17 09:33 IMPRESSION: STABLE CHRONIC CHANGES. BORDERLINE CARDIOMEGALY. LINEAR ATELECTASIS/SCARRING. NO ACUTE RADIOGRAPHIC FINDING IN THE CHEST. Assessment & Plan - Diagnosis (1) Chest pain due to myocardial ischemia Qualifiers: Ischemic chest pain type: unspecified angina pectoris type Qualified Code(s): I20.9 - Angina pectoris, unspecified Plan: Stable will obtain a nuclear stress test (2) Shortness of breath Plan: Recurrent. Will obtain a nuclear stress test to rule out any ischemia (3) Hypertension Is this a current diagnosis for this admission?: YesPlan: Controlled continue current medications (4) Humeral head fracture Qualifiers: Laterality: right Is this a current diagnosis for this admission?: YesPlan: We will discuss with orthopedic after the stress test for possible surgical repair (5) Chest wall pain Plan: We will consider that as a possible cause of chest tightness if the nuclear stress test is negative and her echocardiogram was unremarkable
[2017-02-21] MEDS: MULTIVITAMIN TABLET PO SCH (10:38)
[2017-02-21] MEDS: POTASSIUM CHLORIDE 10 MEQ TABLET.SA PO SCH ×2 (10:39→18:17)
[2017-02-21] MEDS: ASPIRIN 81 MG TABLET, ENT COATED PO SCH (10:39)
[2017-02-21] MEDS: FERROUS SULFATE 325 MG TABLET PO SCH ×2 (10:39→18:16)
[2017-02-21] MEDS: METOPROLOL TARTRATE 50 MG TABLET PO SCH ×2 (10:42→22:32)
[2017-02-21] MEDS: FUROSEMIDE 40 MG TABLET PO SCH ×2 (10:49→18:16)
[2017-02-21] MEDS: ENOXAPARIN SODIUM INJ 80 MG/0.8 ML DISP.SYRIN SUBCUT SCH ×2 (10:49→22:29)
[2017-02-21] MEDS: DOCUSATE SODIUM 100 MG CAPSULE PO SCH ×2 (10:54→18:17)
[2017-02-21] MEDS ORDERED: NORMAL SALINE 1000 ML 1,000 ML IV PRN (11:53)
[2017-02-21] MEDS ORDERED: REGADENOSON INJ 0.4 MG/5 ML DISP.SYRIN IV ONE (12:58)
--- NOTE | 2017-02-21 15:29 | RADIOLOGY REPORT (SQ) ---
EXAM DESCRIPTION: CTA CHEST COMPLETED DATE/TIME: 02/21/2017 2:10 pm REASON FOR STUDY: SOB / Assess PE COMPARISON: AP chest 02/18/2017, 09/07/2016 CT angio chest 09/07/2016 CT chest 11/04/2011 TECHNIQUE: CT scan of the chest performed using helical scanning technique with dynamic intravenous contrast injection. Images reviewed with lung, soft tissue and bone windows. Reconstructed coronal and sagittal MPR images reviewed. Additional 3 dimensional post-processing performed to develop Maximal Intensity Projection images ([place] P). All images stored on PACS. All CT scanners at this facility use dose modulation, iterative reconstruction, and/or weight based d osing when appropriate to reduce radiation dose to as low as reasonably achievable (ALARA). [facility]: Dose Right [facility]: CareDose [facility]: Dose Right [facility]: Teradose 4D [facility]: Integrity Applications CONTRAST TYPE AND DOSE: contrast/concentration: Isovue 370.00 mg/ml; Total Contrast Delivered: 65.0 ml; Total Saline Delivered: 110.1 ml RENAL FUNCTION: Creatinine 0.96 RADIATION DOSE: Up-to-date CT equipment and radiation dose reduction techniques were employed. CTDIv ol: 15.4 - 18.8 mGy. DLP: 497 mGy-cm. . LIMITATIONS: None. FINDINGS: LUNGS AND PLEURA: No dense consolidation worrisome for pneumonia. Bandlike scarring along the right major fissure and left upper lobe/ lingula. Trace left pleural fluid. Healed right pleural fluid. No pneumothorax. AORTA AND GREAT VESSELS: Aortic valve replacement. Ectatic ascending aorta 4 cm in diameter, stable. Prominent main pulmonary artery, 3.9 cm in diameter, stable. No thoracic aortic dissection. HEART: Aortic valve replacement. Calcified mitral annulus. Mild cardiomegaly. No pericardial effus ion PULMONARY ARTERIES: No emboli visualized in the main pulmonary arteries or the segmental branches. HILAR AND MEDIASTINAL STRUCTURES: No identified masses or abnormal nodes. Moderate size retrocardiac hiatal hernia HARDWARE: None in the chest. UPPER ABDOMEN: No significant findings. Limited exam. THYROID AND OTHER SOFT TISSUES: No masses. No adenopathy. BONES: Subacute nonunited fracture right humeral neck. Old left shoulder replacement. 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 Previously treated 50% compression deformities at T12 and L1 with bone cement. 3D MIPS: Confirm above findings. OTHER: No other significant finding. IMPRESSION: No CT angio evidence of acute pulmonary emboli. TECHNICAL DOCUMENTATION: JOB ID: [id number] Quality ID # [id number]: Final reports with documentation of one or more dose reduction techniques (e.g., Au tomated exposure control, adjustment of the mA and/or kV according to patient size, use of iterative reconstruction technique) 2010 [employer]- All Rights Reserved
[2017-02-21] MEDS: SERTRALINE HCL 50 MG TABLET PO SCH (18:15)
--- NOTE | 2017-02-21 22:09 | PROGRESS NOTE E ---
Progress Note NAME: PEDRO PEREZ : 1935 AGE: 81Y DATE: 02/21/2017 ROOM: 319 SUBJECTIVE: The patient denies any chest pain or discomfort at present, although she at times states that when we press on the chest she does have some pressure, otherwise spontaneously she does not have any chest pain. There is no shortness of breath. There is no PND, orthopnea. There is no arrhythmia seen on the monitor. There is no pedal edema. There is no clear cut anginal symptoms. There are no TIA or CVA symptoms. OBJECTIVE: GENERAL: On examination the patient is mildly obese, well-groomed, in no acute distress. VITAL SIGNS: The patient is afebrile with a temperature of 98.1 degrees Fahrenheit. Pulse is 59 beats per minute. Blood pressure is 147/42. Respirations are 17 per minute. O2 sats are 100% on nasal oxygen 2 L per minute. HEENT: Head is atraumatic, normocephalic. Eyes; pupils are equal, round, regular, reactive to light and accommodation. Extraocular movements are normal. There is no conjunctival pallor. There is no scleral icterus. ENT is negative. NECK: Supple. There is no JVD. Carotids are equal. There is no bruit. There is no carotid delay. There is transmitted aortic murmur, mild, with radiation to both carotids. HEART: S4 is in A2 is well heard. There is no S3 or S4 gallop. There is a systolic murmur in the left sternal border and the apex. There is no rub, there is no thrill. CHEST: Clear to auscultation and percussion. There is minimal discomfort still reproducing the patient's chest pressure on pressing on the front of the chest. ABDOMEN: Soft, nontender. There is no hepatosplenomegaly. Bowel sounds are well heard. EXTREMITIES: Femorals are diminished. There are no femoral bruits. Leg pulses are diminished. There is no pedal edema. There is no DVT or cellulitis. There is no cyanosis or clubbing. There is no calf tenderness. CENTRAL NERVOUS SYSTEM: The patient is conscious, awake, alert, and oriented x3 with no focal deficits. PSYCHIATRIC: The patient does not appear to be agitated or depressed. DIAGNOSTIC STUDIES: Note that the patient had an IV Lexiscan Cardiolite stress test which showed that the patient does not have any ischemia and there is no AZ or scar. The TID ratio is not reliable as read by the computer, visually the TID ratio is within normal limits. Note that the patient had a CTA of the chest which showed no evidence of pulmonary emboli. IMPRESSION AND PLAN: 1. CHEST WALL NONCARDIAC CHEST PAIN. Negative stress test Cardiolite, which was discussed with the patient. 2. SHORTNESS OF BREATH, RESOLVED. NO EVIDENCE OF PULMONARY EMBOLI AND NORMAL LEFT VENTRICULAR SYSTOLIC FUNCTION BY ECHOCARDIOGRAPHY. NO SIGNIFICANT AORTIC STENOSIS OF HER PROSTHETIC AORTIC VALVE WHICH HAS BEEN PLACED PERCUTANEOUSLY. 3. NO SIGNIFICANT CAD BY CARDIAC CATHETERIZATION IN 2013. 4. RIGHT SHOULDER HUMERUS FRACTURE. The patient most likely as per dr. Plaza will be seen by dr. Vizcarra and be scheduled for surgical correction of the same. 5. HYPERTENSION, WELL-CONTROLLED. 6. 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 7. HISTORY OF PAROXYSMAL ATRIAL FIBRILLATION, NO RECURRENCE. 8. DEMENTIA, AT PRESENT SEEMS TO BE LUCID WITH NO CONFUSION. 9. ANXIETY. 10. DEPRESSION. 11. GERD. 12. HYPERLIPIDEMIA. 13. PREOPERATIVE CARDIAC RISK ASSESSMENT. The stress test and the findings and the CT scan findings have been discussed with the patient. Note that in view this patient will be an acceptable risk for the right shoulder surgery under general anesthesia. We will discuss with Dr. Vizcarra, discuss with the patient. We will discuss with the patient's son/[id number]. They have not come to the patient's bedside today. TIME SPENT: Note 35 minutes spent on this patient with more than 50% of the time spent on direct patient care. Her medications have been reviewed and also discussed the findings of the echo and the pulmonary CTA with the patient. Of note, this is a highly complex medical decision making in view of the patient being evaluated for cardiac risk assessment for surgery. Discussed with other caregiving providers on the case and formulated a plan of care for the patient and management care for the patient after discussion with physicians on the case. We will follow with you. We will follow the patient postoperatively closely. DICTATING PHYSICIAN: LILI LINDSEY M.D. [id number] PHY#: [id number] ID: [id number] JOB#: [id number] ACCT: [id number] cc: >
[2017-02-21] MEDS: ATORVASTATIN CALCIUM 10 MG TABLET PO SCH (22:28)
[2017-02-21] MEDS: MEMANTINE HCL 10 MG TABLET PO SCH (22:32)
[2017-02-22] MEDS: HYDROMORPHONE HCL 2 MG TABLET PO PRN ×2 (01:18→08:32)
[2017-02-22] MEDS: ACETAMINOPHEN 325 MG TABLET PO PRN (04:29)
[2017-02-22 04:57] LABS: ABSOLUTE EOSINOPHILS # (AUTO) 0.1 10^3/uL (0.0-0.6); ABSOLUTE MONOCYTES (AUTO) 0.6 10^3/uL (0.1-1.4); ABSOLUTE NEUT (AUTO) 3.1 10^3/uL (1.7-8.2); EOSINOPHILS % (AUTO) 2.2 % (0-6); HEMATOCRIT 31.7 % (36.0-47.0); HEMOGLOBIN 10.2 g/dL (12.0-15.5); HGB HCT DIFFERENCE -1.1; LYMPHOCYTES % (AUTO) 20.2 % (13-45); MEAN CORPUSCULAR HEMOGLOBIN 31.9 pg (27.0-33.4); MEAN CORPUSCULAR HGB CONC 32.2 g/dL (32.0-36.0); MEAN CORPUSCULAR VOLUME 99 fl (80-97); RED CELL DISTRIBUTION WIDTH 13.6 % (11.5-14.0); SEGMENTED NEUTROPHILS % (AUTO) 63.6 % (42-78); WHITE BLOOD COUNT 4.9 10^3/uL (4.0-10.5)
[2017-02-22 05:02] LABS: ALANINE AMINOTRANSFERASE 30 U/L (9-52); ALBUMIN 3.7 g/dL (3.5-5.0); ALKALINE PHOSPHATASE 124 U/L (38-126); ANION GAP 12 (5-19); ASPARTATE AMINO TRANSFERASE 18 U/L (14-36); BILIRUBIN,DIRECT 0.3 mg/dL (0.0-0.4); BILIRUBIN,TOTAL 0.4 mg/dL (0.2-1.3); BLOOD UREA NITROGEN 10 mg/dL (7-20); CALCIUM 8.8 mg/dL (8.4-10.2); CARBON DIOXIDE 29 mmol/L (22-30); CHLORIDE 103 mmol/L (98-107); CREATININE RESULT 0.71 mg/dL (0.52-1.25); GLUCOSE 98 mg/dL (75-110); MAGNESIUM 1.7 mg/dL (1.6-2.3); POTASSIUM 3.5 mmol/L (3.6-5.0); SODIUM 143.5 mmol/L (137-145); TOTAL PROTEIN 6.4 g/dL (6.3-8.2)
[2017-02-22] MEDS: LEVOTHYROXINE SODIUM 0.05 MG TABLET PO SCH (05:48)
[2017-02-22] MEDS: BUPROPION HCL 100 MG TABLET PO SCH ×3 (05:48→21:43)
[2017-02-22] MEDS: LANSOPRAZOLE 30 MG TAB.RAP.DR PO SCH (05:48)
[2017-02-22] MEDS: GABAPENTIN 100 MG CAPSULE PO SCH ×3 (05:48→21:43)
--- NOTE | 2017-02-22 08:14 | PDOC CONSULTATION ---
Consultation Consult Date: 02/22/17 Consult reason:: Right proximal humerus fracture History of Present Illness Admission Date/PCP: 02/18/17 12:49 ITALO PALMER, History of Present Illness: 81-year-old white female who is status post left shoulder surgery in the recent past now with a right proximal humerus fracture. There was an attempt for prosthetic reconstruction which was placed on hold because of cardiopulmonary issues. Past Medical History Cardiac Medical History: Reports: Atrial Fibrillation, Hyperlipidema, Hypertension, Heart Murmur Denies: Congestive Heart Failure, Coronary Artery Disease, Myocardial Infarction, Peripheral Vascular Disease, Pulmonary Embolism Pulmonary Medical History: Reports: Chronic Obstructive Pulmonary Disease (COPD) Denies: Asthma, Bronchitis, Pneumonia, Respiratory Failure, Sleep Apnea, Tuberculosis Neurological Medical History: Denies: Seizures Endocrine Medical History: Reports: Diabetes Mellitus Type 2, Hypothyroidism Denies: Hyperthyroidism Renal/ Medical History: Denies: End Stage Renal Disease Malignancy Medical History: Denies: Breast Cancer, Cervical Cancer, Leukemia, Lung Cancer, Ovarian Cancer GI Medical History: Denies: Crohn's Disease, Gastroesophageal Reflux Disease, Hepatitis, Hiatal Hernia - diverticulitis Musculoskeltal Medical History: Reports: Arthritis, Other Denies: Fibromyalgia Psychiatric Medical History: Reports: Dementia, Depression Denies: Bipolar Disorder, Post Traumatic Stress Disorder Hematology: Reports: Anemia Denies: Hemophilia, Sickle Cell Disease Infectious Medical History: Denies: HIV Past Surgical History Past Surgical History: Reports: Orthopedic Surgery - L shoulder replacement, left hip, Tubal Ligation, Valve Replacement, Other - Right mastoid surgery for chronic mastoiditis Denies: Amputation, Appendectomy, Section, Cholecystectomy, Colostomy, Coronary Artery Bypass Graft, Gastric Bypass Surgery, Herniorrhaphy, Hysterectomy, Mastectomy, Pacemaker, Tonsillectomy Social History Lives with: [facility] - We will have the Smoking Status: Never Smoker Frequency of Alcohol Use: None Hx Recreational Drug Use: No Drugs: None Hx Prescription Drug Abuse: No - Advance Directive Resuscitation Status: Do Not Resuscitate Family History Family History: Reviewed & Not Pertinent Parental Family History Reviewed: No Children Family History Reviewed: No Sibling(s) Family History Reviewed.: No Medication/Allergy Home Medications: Acetaminophen [Tylenol 325 mg Tablet] 650 mg PO Q4HP PRN 09/07/16 Aspirin [Aspirin 325 mg Tablet] 325 mg PO DAILY 09/07/16 Atorvastatin Calcium [Lipitor 10 mg Tablet] 10 mg PO QHS 09/07/16 Bupropion HCl [Wellbutrin 100 mg Tablet] 100 mg PO Q8 09/07/16 Docusate Sodium [Colace 100 mg Capsule] 100 mg PO BID 09/07/16 Ferrous Sulfate [Feosol 325 mg Tablet] 325 mg PO BID 09/07/16 Fluticasone Propionate [Flonase Nasal [place] 50 Mcg/[place] 16 gm] 1 spray NAREB DAILY 09/07/16 Furosemide [Lasix 40 mg Tablet] 40 mg PO BID 09/07/16 Gabapentin [Neurontin 100 mg Capsule] 100 mg PO Q8 09/07/16 Isosorbide Mononitrate [Isosorbide Mononitrate ER] 30 mg PO DAILY 09/07/16 Levothyroxine Sodium [Synthroid] 50 mcg PO QAM 09/07/16 Loratadine [Claritin 10 mg Tablet] 10 mg PO DAILY 09/07/16 Memantine HCl [Namenda] 5 mg PO QHS 09/07/16 Metoprolol Tartrate [Lopressor 50 mg Tablet] 50 mg PO Q12 09/07/16 Omeprazole 40 mg PO QAM 09/07/16 Potassium Chloride [Klor-Con Sprinkle] 10 meq PO BID 09/07/16 Sertraline HCl [Zoloft 50 mg Tablet] 50 mg PO QPM 09/07/16 Albuterol Sulfate [Ventolin HFA MDI 18 GM] 2 puff IH Q4HP PRN 02/18/17 Hydromorphone HCl [Dilaudid 2 mg Tablet] 2 mg PO Q4HP PRN 02/18/17 Ibuprofen [Motrin 600 mg Tablet] 600 mg PO Q8 02/18/17 Loperamide HCl [Imodium 2 mg Capsule] 2 mg PO DAILYP PRN 02/18/17 Multivitamin [Tab-A-Kali (Multiple Vitamin) Tablet] 1 tab PO DAILY 02/18/17 Allergies/Adverse Reactions: morphine [Morphine] Adverse Reaction (Verified 02/18/17 09:58) oxycodone [Oxycodone] Adverse Reaction (Verified 02/18/17 09:58) Review of Systems All systems: as per [facility] Physical Exam Vital Signs: Temp Pulse Resp BP Pulse Ox 36.9 C 65 24 H 145/49 H 95 02/22/17 04:14 02/22/17 04:14 02/22/17 04:14 02/22/17 04:14 02/22/17 04:14 Intake & Output 02/21/17 02/22/17 02/23/17 06:59 06:59 06:59 Intake Total 1196 1440 Output Total 1950 1900 Balance -754 -460 Weight 78.7 kg 78.4 kg General appearance: PRESENT: mild distress, obese Head exam: PRESENT: normocephalic Eye exam: PRESENT: EOMI Respiratory exam: PRESENT: unlabored Pulses: PRESENT: normal radial pulses Vascular exam: PRESENT: normal capillary refill GI/Abdominal exam: PRESENT: soft Rectal exam: PRESENT: deferred Extremities exam: PRESENT: other - Right upper extremity immobilized in a shoulder sling. Neurovascular examination is intact to the hand. Passive range of motion causes significant pain. There is no skin abnormalities. Neurological exam: PRESENT: alert, awake, oriented to person, oriented to place , oriented to time, oriented to situation, CN II-XII grossly intact. ABSENT: motor sensory deficit Psychiatric exam: PRESENT: appropriate affect, normal mood. ABSENT: homicidal ideation, suicidal ideation Skin exam: PRESENT: dry, intact, warm. ABSENT: cyanosis, rash Results Laboratory Results: 02/22/17 04:28 02/22/17 04:28 02/22/17 02/22/17 04:28 04:28 WBC 4.9 RBC 3.20 L Hgb 10.2 L Hct 31.7 L MCV 99 H MCH 31.9 MCHC 32.2 RDW 13.6 Plt Count 195 Seg Neutrophils % 63.6 Lymphocytes % 20.2 Monocytes % 13.0 Eosinophils % 2.2 Basophils % 1.0 Absolute Neutrophils 3.1 Absolute Lymphocytes 1.0 Absolute Monocytes 0.6 Absolute Eosinophils 0.1 Absolute Basophils 0.0 Sodium 143.5 Potassium 3.5 L Chloride 103 Carbon Dioxide 29 Anion Gap 12 BUN 10 Creatinine 0.71 Est GFR ( Amer) > 60 Est GFR (Non-Af Amer) > 60 Glucose 98 Calcium 8.8 Magnesium 1.7 Total Bilirubin 0.4 AST 18 ALT 30 Alkaline Phosphatase 124 Total Protein 6.4 Albumin 3.7 02/18/17 02/18/17 02/18/17 13:20 15:52 21:57 CK-MB (CK-2) 1.93 2.55 Troponin I 0.037 0.021 0.056 02/19/17 04:08 CK-MB (CK-2) 2.41 Troponin I 0.060 Impressions: Chest X-Ray 02/18/17 09:33 IMPRESSION: STABLE CHRONIC CHANGES. BORDERLINE CARDIOMEGALY. LINEAR ATELECTASIS/SCARRING. NO ACUTE RADIOGRAPHIC FINDING IN THE CHEST. Chest/Abdomen CTA 02/21/17 00:00 IMPRESSION: No CT angio evidence of acute pulmonary emboli. Status: Imported from PACS Assessment & Plan - Diagnosis (1) Humeral head fracture Qualifiers: Laterality: right Is this a current diagnosis for this admission?: YesPlan: -year-old female with a right proximal humerus fracture will be best treated with a prosthetic reconstruction. The patient's primary care physician feels that her perioperative risk is such that this is a procedure that can be performed at [facility]. Proceed with a reverse total shoulder arthroplasty on Friday under choice anesthesia - Time Time Spent: 50 to 70 Minutes Anticipated discharge: SNF Within: Other - Plan Summary Plan Summary: Will be for operative repair of the right shoulder on Friday
--- NOTE | 2017-02-22 10:04 | PDOC PROGRESS REPORT ---
Subjective Progress Note for:: 02/22/17 Subjective:: Patient has no further chest pain or shortness of breath. Patient denies fever , chills, headache, new focal weakness, chest pain, shortness of breath, abdominal pain, nausea, vomiting, diarrhea, constipation. Physical Exam Vital Signs: Temp Pulse Resp BP Pulse Ox 98.0 F 64 18 163/54 H 94 02/22/17 07:33 02/22/17 07:33 02/22/17 07:33 02/22/17 07:33 02/22/17 07:33 Intake & Output 02/21/17 02/22/17 02/23/17 06:59 06:59 06:59 Intake Total 1196 1440 Output Total 1950 1900 Balance -754 -460 Weight 78.7 kg 78.4 kg GENERAL: No acute distress HEENT: Conjunctiva clear, nonicteric, moist mucous membranes, no JVD, midline trachea RESPIRATORY: Clear to auscultation bilaterally, no wheezes, no rhonchi CARDIAC: Regular rate and rhythm, no murmurs/gallops/rubs ABDOMEN: Soft, nondistended, nontender, positive bowel sounds, no rebound, no guarding EXTREMETIES: No edema, cyanosis, clubbing. Right shoulder immobilizer NEUROLOGIC: Alert, oriented to person/place/time, CN's grossly intact, no focal deficits SKIN: No rash, wounds PSYCH: Normal mood, normal affect Results Laboratory Results: 02/22/17 04:28 02/22/17 04:28 02/22/17 02/22/17 04:28 04:28 WBC 4.9 RBC 3.20 L Hgb 10.2 L Hct 31.7 L MCV 99 H MCH 31.9 MCHC 32.2 RDW 13.6 Plt Count 195 Seg Neutrophils % 63.6 Lymphocytes % 20.2 Monocytes % 13.0 Eosinophils % 2.2 Basophils % 1.0 Absolute Neutrophils 3.1 Absolute Lymphocytes 1.0 Absolute Monocytes 0.6 Absolute Eosinophils 0.1 Absolute Basophils 0.0 Sodium 143.5 Potassium 3.5 L Chloride 103 Carbon Dioxide 29 Anion Gap 12 BUN 10 Creatinine 0.71 Est GFR ( Amer) > 60 Est GFR (Non-Af Amer) > 60 Glucose 98 Calcium 8.8 Magnesium 1.7 Total Bilirubin 0.4 AST 18 ALT 30 Alkaline Phosphatase 124 Total Protein 6.4 Albumin 3.7 07/11/17 07/11/17 07/11/17 13:20 15:52 21:57 CK-MB (CK-2) 1.93 2.55 Troponin I 0.037 0.021 0.056 02/19/17 04:08 CK-MB (CK-2) 2.41 Troponin I 0.060 Impressions: Chest X-Ray 02/18/17 09:33 IMPRESSION: STABLE CHRONIC CHANGES. BORDERLINE CARDIOMEGALY. LINEAR ATELECTASIS/SCARRING. NO ACUTE RADIOGRAPHIC FINDING IN THE CHEST. Chest/Abdomen CTA 02/21/17 00:00 IMPRESSION: No CT angio evidence of acute pulmonary emboli. Assessment & Plan - Diagnosis (1) Humeral head fracture Qualifiers: Laterality: right Is this a current diagnosis for this admission?: YesPlan: Dr. Vizcarra of orthopedics planning surgical fixation on Friday. (2) Shortness of breath Is this a current diagnosis for this admission?: YesPlan: Cardiolite stress test reportedly negative by Dr. Dumont of cardiology. CTA of chest negative. Echocardiogram shows normal ejection fraction. (3) Chest wall pain Is this a current diagnosis for this admission?: YesPlan: Cardiac workup negative. (4) Atrial fibrillation Qualifiers: Atrial fibrillation type: paroxysmal Qualified Code(s): I48.0 - Paroxysmal atrial fibrillation Is this a current diagnosis for this admission?: YesPlan: Currently in sinus rhythm. Patient does not routinely take anticoagulation as an outpatient but has been started on full dose Lovenox inpatient. I think given history of falls, dementia, age I would like to discontinue full dose Lovenox. I will start routine prophylactic dose of Lovenox 40 mg daily at this as well as DVT prophylaxis. Continue aspirin 325 mg daily. Continue metoprolol 50 mg twice daily. (5) Hypothyroid Is this a current diagnosis for this admission?: YesPlan: Continue Synthroid. (6) Dementia Is this a current diagnosis for this admission?: Yes (7) Anemia Is this a current diagnosis for this admission?: YesPlan: H&H stable. (8) Hypertension Is this a current diagnosis for this admission?: YesPlan: Continue metoprolol. (9) Fall Qualifiers: Encounter type: initial encounter Qualified Code(s): W19.XXXA - Unspecified fall, initial encounter Is this a current diagnosis for this admission?: YesPlan: Physical therapy (10) Status post mitral valve replacement Is this a current diagnosis for this admission?: YesPlan: Patient apparently has porcine mitral valve. She is not normally on anticoagulation. She normally takes aspirin 325 mg daily. I will discontinue full anticoagulation and resume aspirin 325 mg daily. - Time Time Spent with patient: 35 or more minutes
[2017-02-22] MEDS: METOPROLOL TARTRATE 50 MG TABLET PO SCH ×2 (10:10→21:43)
[2017-02-22] MEDS: FERROUS SULFATE 325 MG TABLET PO SCH ×2 (10:10→17:18)
[2017-02-22] MEDS: DOCUSATE SODIUM 100 MG CAPSULE PO SCH ×2 (10:10→17:19)
[2017-02-22] MEDS: FUROSEMIDE 40 MG TABLET PO SCH (10:10)
[2017-02-22] MEDS: MULTIVITAMIN TABLET PO SCH (10:39)
[2017-02-22] MEDS: ISOSORBIDE MONONITRATE 30 MG TAB.ER.24H PO SCH (10:39)
[2017-02-22] MEDS: ASPIRIN 325 MG TABLET PO SCH (10:39)
[2017-02-22] MEDS: POTASSIUM CHLORIDE 10 MEQ TABLET.SA PO SCH ×2 (10:40→17:19)
[2017-02-22] MEDS: ENOXAPARIN SODIUM INJ 40 MG/0.4 ML DISP.SYRIN SUBCUT SCH (10:46)
[2017-02-22] MEDS: PROMETHAZINE HCL 25 MG TABLET PO PRN (17:00)
[2017-02-22] MEDS: SERTRALINE HCL 50 MG TABLET PO SCH (17:19)
--- NOTE | 2017-02-22 19:13 | PROGRESS NOTE E ---
Progress Note NAME: PEDRO PEREZ : 1935 AGE: 81Y DATE: 02/22/2017 ROOM: 319 SUBJECTIVE: The patient denied any further chest pain or discomfort. She has no chest wall tenderness today. There is no shortness of breath. There is no clear-cut anginal symptoms. There is no PND or orthopnea. There is no leg edema. There are no palpitations. There are no TIA or CVA symptoms. There are no arrhythmia seen on the monitor. OBJECTIVE: GENERAL: On examination the patient is mildly obese, well-groomed, in no acute distress. VITAL SIGNS: She is afebrile with a temperature of 98.1 degrees Fahrenheit. Pulse is 58 beats per minute. Blood pressure is 146/48. Respirations are 18 per minute. O2 sats are 94% on room air. HEENT: Head is atraumatic, normocephalic. Eyes: Pupils are equal, round, regular, reactive to light and accommodation. Extraocular movements are normal. There is no conjunctival pallor. There is no scleral icterus. ENT is negative. NECK: Supple. There is no JVD. Carotids are equal. There is no bruit. There is no carotid delay. There is a transmitted aortic murmur, mild, with radiation to both carotids. HEART: S1,S2 is heard. There is S4 gallop. There is no S3 gallop. S1 is of normal intensity. The A2 sound is well-preserved. There is a murmur of mild aortic stenosis with radiation to the carotids without any carotid delay. There is a systolic murmur in the apex with mild radiation to the axilla. There is no rub. ABDOMEN: Soft, nontender. There is no hepatosplenomegaly. Bowel sounds are well heard. There are no tender areas or masses. CHEST: Clear to auscultation and percussion. There is no chest wall today. EXTREMITIES: Femorals are diminished. There are no femoral bruits. Leg pulses are diminished. There is no pedal edema. There is no DVT or cellulitis. There is no cyanosis or clubbing. There is no calf tenderness. CENTRAL NERVOUS SYSTEM: The patient is conscious, awake, alert, and oriented x3 with no focal deficits. PSYCHIATRIC: The patient's judgment and insight today seem to be intact. Her affect is normal. DIAGNOSTIC STUDIES: The patient's white count is 4900, hemoglobin is 7.2, hematocrit 31.7 and platelet count is 195,000. The patient's sodium is 143.5, potassium is slightly low at 3.5, chloride is 106, CO2 is 29, the patient's BUN is 10, creatinine 0.71, GFR is greater than 60, her glucose is 98, calcium is 8.8, magnesium 1.7. Liver function tests are normal. The patient's albumin is 3.7, total protein is 6.4. IMPRESSION AND PLAN: 1. MILD HYPOKALEMIA. Would replace the patient's potassium. 2. CHEST WALL NONCARDIAC. Has resolved. Note that the patient had a negative Lexiscan Cardiolite stress test yesterday. 3. SHORTNESS OF BREATH, RESOLVED. No evidence of pulmonary emboli and normal left ventricular systolic function by echocardiography. No pulmonary emboli by pulmonary CT angiogram and no significant aortic stenosis by echocardiogram with normal left ventricular systolic function. 4. NO SIGNIFICANT CAD BY CARDIAC CATHETERIZATION IN 2013. 5. RIGHT SHOULDER HUMERUS FRACTURE. The patient has been seen by Dr. Vizcarra. The patient is for shoulder surgery on Friday under general anesthesia. 6. HYPERTENSION, WELL-CONTROLLED. 7. 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 8. HISTORY OF PAROXYSMAL ATRIAL FIBRILLATION, NO RECURRENCE. 9. DEMENTIA, AT PRESENT SEEMS TO BE LUCID WITH NO CONFUSION. 10. ANXIETY. 11. DEPRESSION. 12. GERD. 13. HYPERLIPIDEMIA. 14. PREOPERATIVE CARDIAC RISK ASSESSMENT. I have again discussed the stress test and echo findings with the patient and the patient's [id number] and also that the patient is acceptable risk for this surgery under general anesthesia for a right shoulder fracture/right humeral fracture. 15. HYPOTHYROIDISM ON REPLACEMENT. RECOMMENDATIONS: Would continue the patient's current medications. Again discussed the need for SBE prophylaxis with antibiotics prior to GI, and dental surgery/procedures with the patient and the patient's [id number]. Continue the patient on Lovenox at 40 mg subcutaneously for DVT/PE prophylaxis. Continue aspirin and atorvastatin, continue psychiatric medication, continue Lasix 40 mg p.o. daily and continue replacing the patient's thyroid and continue the patient on metoprolol 50 mg p.o. q.12 h. Would recommend replacing the patient's potassium. Note that the patient's medications have been reviewed and also medications added in the form of potassium. Also discussed with the other caregiving providers on the case and formulated a management plan for the patient. Note, 35 minutes spent on this patient with more than 50% of the time spent on direct patient care. The patient continues to be at present seems to be a moderately complex medical decision making in view of the patient being stable. We will follow with you. I will replace the patient's potassium. Thanking you. DICTATING PHYSICIAN: LILI LINDSEY M.D. [id number] PHY#: [id number] ID: [id number] JOB#: [id number] ACCT: [id number] cc: >
[2017-02-22] MEDS: ATORVASTATIN CALCIUM 10 MG TABLET PO SCH (21:43)
[2017-02-22] MEDS: MEMANTINE HCL 10 MG TABLET PO SCH (21:43)
[2017-02-23] MEDS: HYDROMORPHONE HCL 2 MG TABLET PO PRN ×2 (03:38→20:19)
[2017-02-23 05:22] LABS: PROTHROMBIN TIME 13.2 SEC (11.4-15.4)
[2017-02-23 05:23] LABS: PARTIAL THROMBOPLASTIN TIME 29.6 SEC (23.5-35.8)
[2017-02-23 05:24] LABS: ANION GAP 8 (5-19); BLOOD UREA NITROGEN 9 mg/dL (7-20); CALCIUM 8.8 mg/dL (8.4-10.2); CARBON DIOXIDE 30 mmol/L (22-30); CHLORIDE 105 mmol/L (98-107); CREATININE RESULT 0.78 mg/dL (0.52-1.25); GLUCOSE 102 mg/dL (75-110); POTASSIUM 3.5 mmol/L (3.6-5.0); SODIUM 143.4 mmol/L (137-145)
[2017-02-23 05:43] LABS: ABSOLUTE EOSINOPHILS # (AUTO) 0.1 10^3/uL (0.0-0.6); ABSOLUTE LYMPHOCYTES (AUTO) 0.9 10^3/uL (0.5-4.7); ABSOLUTE MONOCYTES (AUTO) 0.5 10^3/uL (0.1-1.4); ABSOLUTE NEUT (AUTO) 3.4 10^3/uL (1.7-8.2); BASOPHILS % (AUTO) 0.7 % (0-2); EOSINOPHILS % (AUTO) 2.8 % (0-6); HEMATOCRIT 30.7 % (36.0-47.0); HGB HCT DIFFERENCE -0.7; LYMPHOCYTES % (AUTO) 17.4 % (13-45); MEAN CORPUSCULAR HEMOGLOBIN 32.2 pg (27.0-33.4); MEAN CORPUSCULAR HGB CONC 32.5 g/dL (32.0-36.0); MEAN CORPUSCULAR VOLUME 99 fl (80-97); MONOCYTES % (AUTO) 9.3 % (3-13); RED CELL DISTRIBUTION WIDTH 13.6 % (11.5-14.0); SEGMENTED NEUTROPHILS % (AUTO) 69.8 % (42-78); WHITE BLOOD COUNT 4.9 10^3/uL (4.0-10.5)
[2017-02-23] MEDS: LEVOTHYROXINE SODIUM 0.05 MG TABLET PO SCH (05:55)
[2017-02-23] MEDS: LANSOPRAZOLE 30 MG TAB.RAP.DR PO SCH (05:55)
[2017-02-23] MEDS: BUPROPION HCL 100 MG TABLET PO SCH ×3 (05:56→21:22)
[2017-02-23] MEDS: GABAPENTIN 100 MG CAPSULE PO SCH ×3 (05:56→21:22)
[2017-02-23] MEDS ORDERED: DEXTROSE 50%-WATER 25 GM/50 ML DISP.SYRIN IV PRN ×2 (07:01)
[2017-02-23] MEDS ORDERED: GLUCAGON,HUMAN RECOMB 1 MG INJ SUBCUT PRN (07:01)
[2017-02-23] MEDS ORDERED: DEXTROSE 40% GEL 15 GM TUBE PO PRN ×2 (07:01)
[2017-02-23] MEDS ORDERED: POTASSI CL 20 MEQ/50 ML RIDER 20 MEQ/50 ML RTUPB IV ONE (07:15)
--- NOTE | 2017-02-23 09:29 | PDOC PROGRESS REPORT ---
Subjective Progress Note for:: 02/23/17 Subjective:: Patient has no further chest pain or shortness of breath. She is very anxious about having surgery tomorrow as she had some type issues at an outside hospital recently while undergoing general anesthesia for surgery. She has asked me many questions about the surgery itself and anesthesia. I told her that she would have to direct these questions to Dr. Vizcarra and anesthesiologist. Patient denies fever, chills, headache, new focal weakness, chest pain, shortness of breath, abdominal pain, nausea, vomiting, diarrhea, constipation. Physical Exam Vital Signs: Temp Pulse Resp BP Pulse Ox 97.8 F 65 18 139/84 H 93 02/23/17 07:39 02/23/17 07:39 02/23/17 07:39 02/23/17 07:39 02/23/17 07:39 Intake & Output 02/22/17 02/23/17 02/24/17 06:59 06:59 06:59 Intake Total 1440 1038 Output Total 1900 1150 Balance -460 -112 Weight 78.4 kg 79 kg GENERAL: No acute distress HEENT: Conjunctiva clear, nonicteric, moist mucous membranes, no JVD, midline trachea RESPIRATORY: Clear to auscultation bilaterally, no wheezes, no rhonchi CARDIAC: Regular rate and rhythm, no murmurs/gallops/rubs ABDOMEN: Soft, nondistended, nontender, positive bowel sounds, no rebound, no guarding EXTREMETIES: No edema, cyanosis, clubbing. Right shoulder immobilizer NEUROLOGIC: Alert, oriented to person/place/time, CN's grossly intact, no focal deficits SKIN: No rash, wounds PSYCH: Normal mood, normal affect Results Laboratory Results: 02/23/17 04:45 02/23/17 04:45 02/23/17 02/23/17 04:45 04:45 WBC 4.9 RBC 3.10 L Hgb 10.0 L Hct 30.7 L MCV 99 H MCH 32.2 MCHC 32.5 RDW 13.6 Plt Count 194 Seg Neutrophils % 69.8 Lymphocytes % 17.4 Monocytes % 9.3 Eosinophils % 2.8 Basophils % 0.7 Absolute Neutrophils 3.4 Absolute Lymphocytes 0.9 Absolute Monocytes 0.5 Absolute Eosinophils 0.1 Absolute Basophils 0.0 Sodium 143.4 Potassium 3.5 L Chloride 105 Carbon Dioxide 30 Anion Gap 8 BUN 9 Creatinine 0.78 Est GFR ( Amer) > 60 Est GFR (Non-Af Amer) > 60 Glucose 102 Calcium 8.8 02/18/17 02/18/17 02/18/17 13:20 15:52 21:57 CK-MB (CK-2) 1.93 2.55 Troponin I 0.037 0.021 0.056 02/19/17 04:08 CK-MB (CK-2) 2.41 Troponin I 0.060 Impressions: Chest X-Ray 02/18/17 09:33 IMPRESSION: STABLE CHRONIC CHANGES. BORDERLINE CARDIOMEGALY. LINEAR ATELECTASIS/SCARRING. NO ACUTE RADIOGRAPHIC FINDING IN THE CHEST. Chest/Abdomen CTA 02/21/17 00:00 IMPRESSION: No CT angio evidence of acute pulmonary emboli. Assessment & Plan - Diagnosis (1) Humeral head fracture Qualifiers: Laterality: right Is this a current diagnosis for this admission?: YesPlan: Shoulder immobilizer for now. Dr. Vizcarra of orthopedics planning surgical fixation on Friday. (2) Shortness of breath Is this a current diagnosis for this admission?: YesPlan: Cardiolite stress test reportedly negative by Dr. Dumont of cardiology. CTA of chest negative. Echocardiogram shows normal ejection fraction. (3) Chest wall pain Is this a current diagnosis for this admission?: YesPlan: Cardiac workup negative. (4) Atrial fibrillation Qualifiers: Atrial fibrillation type: paroxysmal Qualified Code(s): I48.0 - Paroxysmal atrial fibrillation Is this a current diagnosis for this admission?: YesPlan: Currently in sinus rhythm. Patient does not routinely take anticoagulation as an outpatient but has been started on full dose Lovenox inpatient. I think given history of falls, dementia, age I would like to discontinue full dose Lovenox. I will start routine prophylactic dose of Lovenox 40 mg daily at this as well as DVT prophylaxis. Continue aspirin 325 mg daily. Continue metoprolol 50 mg twice daily. (5) Hypothyroid Is this a current diagnosis for this admission?: YesPlan: Continue Synthroid. (6) Dementia Is this a current diagnosis for this admission?: Yes (7) Anemia Is this a current diagnosis for this admission?: YesPlan: H&H stable. (8) Hypertension Is this a current diagnosis for this admission?: YesPlan: Continue metoprolol. (9) Fall Qualifiers: Encounter type: initial encounter Qualified Code(s): W19.XXXA - Unspecified fall, initial encounter Is this a current diagnosis for this admission?: Yes (10) Status post mitral valve replacement Is this a current diagnosis for this admission?: YesPlan: Patient apparently has porcine mitral valve. She is not normally on anticoagulation. She normally takes aspirin 325 mg daily. I discontinued full anticoagulation and restarted aspirin 325 mg daily. (11) Hypokalemia Is this a current diagnosis for this admission?: YesPlan: Replaced. Repeat labs in the morning prior to surgery. - Time Time Spent with patient: 25-34 minutes
[2017-02-23] MEDS: METOPROLOL TARTRATE 50 MG TABLET PO SCH ×2 (09:31→21:21)
[2017-02-23] MEDS: ASPIRIN 325 MG TABLET PO SCH (09:31)
[2017-02-23] MEDS: FERROUS SULFATE 325 MG TABLET PO SCH ×2 (09:31→17:19)
[2017-02-23] MEDS: ISOSORBIDE MONONITRATE 30 MG TAB.ER.24H PO SCH (09:32)
[2017-02-23] MEDS: DOCUSATE SODIUM 100 MG CAPSULE PO SCH ×2 (09:32→17:20)
[2017-02-23] MEDS: FUROSEMIDE 40 MG TABLET PO SCH (09:32)
[2017-02-23] MEDS: POTASSIUM CHLORIDE 10 MEQ TABLET.SA PO SCH ×2 (09:32→17:19)
[2017-02-23] MEDS: MULTIVITAMIN TABLET PO SCH (09:33)
[2017-02-23] MEDS: ENOXAPARIN SODIUM INJ 40 MG/0.4 ML DISP.SYRIN SUBCUT SCH (09:33)
--- NOTE | 2017-02-23 13:07 | PDOC PROGRESS REPORT ---
Subjective Progress Note for:: 02/23/17 Subjective:: Patient is now open to consideration of surgical repair of her right shoulder fracture Physical Exam Vital Signs: Temp Pulse Resp BP Pulse Ox 36.6 C 65 18 139/84 H 93 02/23/17 07:39 02/23/17 07:39 02/23/17 07:39 02/23/17 07:39 02/23/17 07:39 Intake & Output 02/22/17 02/23/17 02/24/17 06:59 06:59 06:59 Intake Total 1440 1038 Output Total 1900 1150 Balance -460 -112 Weight 78.4 kg 79 kg Physical Exam: He is sitting up in a chair in her room. She is alert oriented and appropriate. General appearance: PRESENT: no acute distress Head exam: PRESENT: normocephalic Eye exam: PRESENT: EOMI Respiratory exam: PRESENT: unlabored Cardiovascular exam: PRESENT: RRR Pulses: PRESENT: normal radial pulses Vascular exam: PRESENT: normal capillary refill GI/Abdominal exam: PRESENT: soft Rectal exam: PRESENT: deferred Extremities exam: PRESENT: other - Upper extremities immobilized in a shoulder immobilizer. Distal neurovascular examination is intact. Neurological exam: PRESENT: alert, awake, oriented to person, oriented to place , oriented to time, oriented to situation. ABSENT: motor sensory deficit Psychiatric exam: PRESENT: appropriate affect, normal mood. ABSENT: homicidal ideation, suicidal ideation Skin exam: PRESENT: dry, intact, warm. ABSENT: cyanosis, rash Results Laboratory Results: 02/23/17 04:45 02/23/17 04:45 02/23/17 02/23/17 04:45 04:45 WBC 4.9 RBC 3.10 L Hgb 10.0 L Hct 30.7 L MCV 99 H MCH 32.2 MCHC 32.5 RDW 13.6 Plt Count 194 Seg Neutrophils % 69.8 Lymphocytes % 17.4 Monocytes % 9.3 Eosinophils % 2.8 Basophils % 0.7 Absolute Neutrophils 3.4 Absolute Lymphocytes 0.9 Absolute Monocytes 0.5 Absolute Eosinophils 0.1 Absolute Basophils 0.0 Sodium 143.4 Potassium 3.5 L Chloride 105 Carbon Dioxide 30 Anion Gap 8 BUN 9 Creatinine 0.78 Est GFR ( Amer) > 60 Est GFR (Non-Af Amer) > 60 Glucose 102 Calcium 8.8 02/18/17 02/18/1717 13:20 15:52 21:57 CK-MB (CK-2) 1.93 2.55 Troponin I 0.037 0.021 0.056 02/19/17 04:08 CK-MB (CK-2) 2.41 Troponin I 0.060 Impressions: Chest X-Ray 02/18/17 09:33 IMPRESSION: STABLE CHRONIC CHANGES. BORDERLINE CARDIOMEGALY. LINEAR ATELECTASIS/SCARRING. NO ACUTE RADIOGRAPHIC FINDING IN THE CHEST. Chest/Abdomen CTA 02/21/17 00:00 IMPRESSION: No CT angio evidence of acute pulmonary emboli. Status: Imported from PACS Assessment & Plan - Diagnosis (1) Humeral head fracture Qualifiers: Laterality: right Is this a current diagnosis for this admission?: YesPlan: Be to proceed with a right reverse total shoulder arthroplasty on Friday under choice anesthesia - Time Time Spent with patient: 15-24 minutes Anticipated discharge: SNF Within: Other
[2017-02-23] MEDS ORDERED: VANCOMYCIN HCL INJ 1000 MG VIAL IV PRN (13:32)
--- NOTE | 2017-02-23 14:47 | DRAGON STRESS TEST REPORT ---
Intravenous Lexiscan Cardiolite stress test using single photon emmision computerized tomography. Date of procedure: 02/08/2017.Ordering Provider: Renard Plaza/Dr. Chayo Dumont MD . Patient's status: Inpatient Indication: Chest pain and shortness of breath, and preoperative cardiac risk assessment.. Coronary risk factors: Age, hypertension, and dyslipidemia. Resting EKG: Sinus rhythm left bundle branch block pattern Stress EKG:[ No changes of ischemia. The patient had no chest pain or discomfort, and there were no arrhythmias seen. Reason for termination: Protocol. Conclusions: Normal EKG and hemodynamic response to IV Lexiscan. Nuclear data: At rest the patient was given 12.47 millicuries of technetium 99m sestamibi injected intravenously. As per protocol rest non gated SPECT images were obtained. Subsequently the patient was given intravenous Lexiscan at a dose of 0.4 mg in 5 mL intravenously, followed by flush with normal saline. Subsequently the stress dose of 35.9 millicuries of technetium 99m sestamibi was injected intravenously. As per protocol stress gated images were obtained. Nuclear interpretation: Review of images showed that all segments of the myocardium had normal perfusion at rest, and normal perfusion post stress with IV Lexiscan. All segments of the myocardium had normal motion, contraction, and thickening by gated study. T. I D. ratio was read by the computer as abnormal at 1.41. This is visually not reliable, and visually there is no abnormal TID ratio computer read rest, and stress left ventricular ejection fraction were 75 %, and 75 %, respectively. Conclusion: 1. There is no scintigraphic evidence of Lexiscan induced myocardial ischemia. 2. There is no scintigraphic evidence of myocardial infarction/scar. 3. Visually no abnormal TID ratio. Recommendations: Aggressive risk factor modification, and treating the underlying co- morbidities. MTDD
--- NOTE | 2017-02-23 16:39 | PROGRESS NOTE E ---
Progress Note NAME: PEDRO PEREZ : 1935 AGE: 81Y DATE: 02/23/2017 ROOM: 319 SUBJECTIVE: The patient denies any chest pain or discomfort. There is no chest wall tenderness today. There is no shortness of breath. There is no PND or orthopnea. There is no leg edema. There are no palpitations. There are no TIA or CVA symptoms. There are no arrhythmias seen on the monitor. There are no clear-cut anginal symptoms. OBJECTIVE: GENERAL: On examination the patient is mildly obese, well-groomed, in no acute distress. VITAL SIGNS: She is afebrile with a temperature of 97.8 degrees Fahrenheit. Pulse is 65 beats per minute. Blood pressure 139/84. Respirations are 18 per minute. O2 sats are 93% on room air. HEENT: Head is atraumatic, normocephalic. Eyes: Pupils are equal, round, regular, reactive to light and accommodation. Extraocular movements are normal. There is no conjunctival pallor. There is no scleral icterus. ENT is negative. NECK: Supple. There is no JVD. Carotids are equal. There is no bruit. There is no carotid delay. There is a transmitted aortic murmur which is mild, with radiation to both carotids. HEART: S1, S2 are heard. There is S4 gallop. There is no S3 gallop. S1 is of normal intensity. The second heart sound, A2, is well-preserved. There is a murmur of mild aortic stenosis with radiation to the carotids without any carotid delay. There is a systolic murmur in the apex with mild radiation to the left axilla. There is no rub. ABDOMEN: Soft, nontender. There is no hepatosplenomegaly. Bowel sounds are well heard. There are no tender areas or masses. CHEST: Clear to auscultation and percussion. There is no chest wall tenderness. EXTREMITIES: Femorals are diminished. There are no femoral bruits. Leg pulses are diminished. There is no pedal edema. There is no DVT or cellulitis. There is no cyanosis or clubbing. There is no calf tenderness. Capillary refill is normal. CENTRAL NERVOUS SYSTEM: The patient is conscious, awake, alert, oriented x3 with no focal deficits. PSYCHIATRIC: The patient's judgment and insight are intact. Her affect is normal. DIAGNOSTIC STUDIES: The patient's sodium is 143.4, potassium is 3.5, chloride is 105, CO2 is 30, the patient's BUN is 9, creatinine 0.7, and GFR is greater than 60. Her glucose is 102, her calcium is 8.8. The patient's white count is 4900, hemoglobin is 10, hematocrit is 30.7, platelet count is 194,000. IMPRESSION AND PLAN: 1. MILD HYPOKALEMIA. We will increase the patient's potassium replacement. 2. CHEST WALL TENDERNESS, NONCARDIAC. Has resolved. The patient had a negative Lexiscan Cardiolite stress test the day before yesterday. 3. SHORTNESS OF BREATH, RESOLVED. No evidence of pulmonary emboli by CT angiogram. 4. NO SIGNIFICANT CAD BY CARDIAC CATHETERIZATION IN 2013, AND NOW PATIENT WITH A NEGATIVE CARDIOLITE STRESS TEST. 5. RIGHT SHOULDER HUMERUS FRACTURE. The patient is for surgery on Friday under general anesthesia. 6. HYPERTENSION, WELL-CONTROLLED. 7. 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 8. HISTORY OF PAROXYSMAL ATRIAL FIBRILLATION, NO RECURRENCE. 9. DEMENTIA, AT PRESENT SEEMS TO BE LUCID WITH NO CONFUSION. 10. ANXIETY. 11. DEPRESSION. 12. GERD. 13. HYPERLIPIDEMIA. 14. PREOPERATIVE CARDIAC RISK ASSESSMENT. As mentioned earlier, the patient will be an acceptable risk for surgery under general anesthesia for right shoulder fracture/right humeral fracture. 15. HYPOTHYROIDISM, ON REPLACEMENT. Note, 30 minutes spent on this patient with more than 50% of the time spent on direct patient care. The patient's medications have been reviewed and discussed with the other caregiving providers on the case, and formulated a management plan with the patient. Discussed with the orthopedist that the patient should be an acceptable risk for surgery. Note, moderately complex medical decision making involved in this case. The patient appears to be stable. Will follow with you. DICTATING PHYSICIAN: LILI LINDSEY M.D. [id number] PHY#: [id number] ID: [id number] JOB#: [id number] ACCT: [id number] cc: >
[2017-02-23] MEDS: SERTRALINE HCL 50 MG TABLET PO SCH (17:19)
[2017-02-23] MEDS ORDERED: DEXTROSE 5%-1/2 NORMAL SALINE 1,000 ML IV PRN (20:00)
[2017-02-23] MEDS: ATORVASTATIN CALCIUM 10 MG TABLET PO SCH (21:22)
[2017-02-23] MEDS: MEMANTINE HCL 10 MG TABLET PO SCH (21:24)
[2017-02-23] MEDS: ACETAMINOPHEN 325 MG TABLET PO PRN (23:06)
[2017-02-24] MEDS ORDERED: RINGERS SOLUTION,LACTATED 1,000 ML IV PRN
[2017-02-24] MEDS: HYDROMORPHONE HCL 2 MG TABLET PO PRN ×4 (03:58→23:30)
[2017-02-24] MEDS ORDERED: VANCOMYCIN HCL 1,000 MG in DEXTROSE 5%-WATER 250 ML IV PRN (05:00)
[2017-02-24] MEDS ORDERED: TRANEXAMIC ACID INJ/PF 1,000 MG/10 ML SDV IV PRN (05:00)
[2017-02-24 05:22] LABS: ABSOLUTE EOSINOPHILS # (AUTO) 0.1 10^3/uL (0.0-0.6); ABSOLUTE LYMPHOCYTES (AUTO) 1.1 10^3/uL (0.5-4.7); ABSOLUTE MONOCYTES (AUTO) 0.4 10^3/uL (0.1-1.4); ABSOLUTE NEUT (AUTO) 3.9 10^3/uL (1.7-8.2); BASOPHILS % (AUTO) 0.8 % (0-2); EOSINOPHILS % (AUTO) 2.7 % (0-6); HEMATOCRIT 29.9 % (36.0-47.0); HEMOGLOBIN 9.8 g/dL (12.0-15.5); HGB HCT DIFFERENCE -0.5; LYMPHOCYTES % (AUTO) 19.6 % (13-45); MEAN CORPUSCULAR HEMOGLOBIN 32.2 pg (27.0-33.4); MEAN CORPUSCULAR HGB CONC 32.9 g/dL (32.0-36.0); MEAN CORPUSCULAR VOLUME 98 fl (80-97); MONOCYTES % (AUTO) 7.5 % (3-13); RED BLOOD COUNT 3.05 10^6/uL (3.72-5.28); RED CELL DISTRIBUTION WIDTH 13.6 % (11.5-14.0); SEGMENTED NEUTROPHILS % (AUTO) 69.4 % (42-78); WHITE BLOOD COUNT 5.6 10^3/uL (4.0-10.5)
[2017-02-24 05:26] LABS: PROTHROMBIN TIME 12.8 SEC (11.4-15.4)
[2017-02-24 05:27] LABS: PARTIAL THROMBOPLASTIN TIME 30.3 SEC (23.5-35.8)
[2017-02-24 05:42] LABS: ANION GAP 10 (5-19); BLOOD UREA NITROGEN 9 mg/dL (7-20); CALCIUM 8.9 mg/dL (8.4-10.2); CARBON DIOXIDE 30 mmol/L (22-30); CHLORIDE 105 mmol/L (98-107); CREATININE RESULT 0.67 mg/dL (0.52-1.25); GLUCOSE 95 mg/dL (75-110); MAGNESIUM 1.7 mg/dL (1.6-2.3); POTASSIUM 3.7 mmol/L (3.6-5.0); SODIUM 144.6 mmol/L (137-145)
[2017-02-24] MEDS: BUPROPION HCL 100 MG TABLET PO SCH ×3 (06:17→22:37)
[2017-02-24] MEDS: LEVOTHYROXINE SODIUM 0.05 MG TABLET PO SCH (06:17)
[2017-02-24] MEDS: GABAPENTIN 100 MG CAPSULE PO SCH ×3 (06:17→22:38)
[2017-02-24] MEDS: LANSOPRAZOLE 30 MG TAB.RAP.DR PO SCH (06:17)
[2017-02-24] MEDS ORDERED: BUPIVACAINE INJ/PF LIPOSOME/PF 266 MG/20 ML SDV ONE (07:44)
[2017-02-24] MEDS ORDERED: FENTANYL CITRATE INJ/PF 100 MCG/2 ML AMPUL ONE ×3 (07:44→11:30)
[2017-02-24] MEDS ORDERED: MIDAZOLAM 2 MG/2 ML INJ ONE (07:44)
[2017-02-24] MEDS ORDERED: IBUPROFEN INJ 800 MG/8 ML VIAL IV ONE (07:45)
[2017-02-24] MEDS ORDERED: PROPOFOL INJ 200 MG/20 ML VIAL IV ONE (07:45)
[2017-02-24] MEDS ORDERED: TRANEXAMIC ACID INJ/PF 1,000 MG/10 ML SDV IV ONE (07:45)
[2017-02-24] MEDS ORDERED: EPHEDRINE SULFATE INJ 50 MG/1 ML AMPULE ONE (07:45)
[2017-02-24] MEDS ORDERED: DEXAMETHASONE SOD PHOSPHATE INJ 4 MG/1 ML VIAL ONE ×2 (08:06→13:28)
[2017-02-24] MEDS ORDERED: ONDANSETRON HCL INJ/PF 4 MG/2 ML SDV ONE ×2 (08:06→13:28)
[2017-02-24] MEDS ORDERED: CEFAZOLIN INJ 1 GM VIAL ONE (08:08)
--- NOTE | 2017-02-24 08:15 | PDOC PROGRESS REPORT ---
Subjective Progress Note for:: 02/24/17 Subjective:: The patient states to feel relatively well. She is presently scheduled for shoulder arthroplasty. She had a negative stress test and relatively benign echocardiogram and a negative CT of the chest for PE. Discussed the need for rehab after her surgery. She would not be able to return to assisted living Physical Exam Vital Signs: Temp Pulse Resp BP Pulse Ox 98.0 F 65 16 172/72 H 93 02/24/17 03:59 02/24/17 03:59 02/24/17 03:59 02/24/17 03:59 02/24/17 03:59 Intake & Output 02/23/17 02/24/17 02/25/17 06:59 06:59 06:59 Intake Total 1038 2730 Output Total 1150 1250 Balance -112 1480 Weight 79 kg 76.9 kg General appearance: PRESENT: no acute distress Head exam: PRESENT: atraumatic Eye exam: PRESENT: conjunctiva pink Neck exam: ABSENT: carotid bruit Respiratory exam: PRESENT: clear to auscultation maura Cardiovascular exam: PRESENT: +S1, +S2 Pulses: PRESENT: +1 pedal pulses bilateral GI/Abdominal exam: PRESENT: soft Extremities exam: PRESENT: tenderness Neurological exam: PRESENT: alert, awake Skin exam: PRESENT: intact Results Laboratory Results: 02/24/17 04:31 02/24/17 04:31 02/24/17 02/24/17 04:31 04:31 WBC 5.6 RBC 3.05 L Hgb 9.8 L Hct 29.9 L MCV 98 H MCH 32.2 MCHC 32.9 RDW 13.6 Plt Count 194 Seg Neutrophils % 69.4 Lymphocytes % 19.6 Monocytes % 7.5 Eosinophils % 2.7 Basophils % 0.8 Absolute Neutrophils 3.9 Absolute Lymphocytes 1.1 Absolute Monocytes 0.4 Absolute Eosinophils 0.1 Absolute Basophils 0.0 Sodium 144.6 Potassium 3.7 Chloride 105 Carbon Dioxide 30 Anion Gap 10 BUN 9 Creatinine 0.67 Est GFR ( Amer) > 60 Est GFR (Non-Af Amer) > 60 Glucose 95 Calcium 8.9 Magnesium 1.7 02/18/17 02/18/17 02/18/17 13:20 15:52 21:57 CK-MB (CK-2) 1.93 2.55 Troponin I 0.037 0.021 0.056 02/19/17 04:08 CK-MB (CK-2) 2.41 Troponin I 0.060 Impressions: Chest X-Ray 02/18/17 09:33 IMPRESSION: STABLE CHRONIC CHANGES. BORDERLINE CARDIOMEGALY. LINEAR ATELECTASIS/SCARRING. NO ACUTE RADIOGRAPHIC FINDING IN THE CHEST. Chest/Abdomen CTA 02/21/17 00:00 IMPRESSION: No CT angio evidence of acute pulmonary emboli. Assessment & Plan - Diagnosis (1) Chest pain due to myocardial ischemia Qualifiers: Ischemic chest pain type: unspecified angina pectoris type Qualified Code(s): I20.9 - Angina pectoris, unspecified Plan: Resolved. Most probably it was not cardiac since the stress test the echo and the CTA were negative (2) Shortness of breath Is this a current diagnosis for this admission?: Yes (3) Hypertension Is this a current diagnosis for this admission?: YesPlan: Blood pressure well controlled. (4) Humeral head fracture Qualifiers: Laterality: right Is this a current diagnosis for this admission?: YesPlan: Presently scheduled for right shoulder arthroplasty (5) Chest wall pain Is this a current diagnosis for this admission?: YesPlan: Controlled with medications
[2017-02-24] MEDS: ENOXAPARIN SODIUM INJ 40 MG/0.4 ML DISP.SYRIN SUBCUT SCH (09:12)
[2017-02-24] MEDS: FERROUS SULFATE 325 MG TABLET PO SCH ×2 (09:12→18:03)
[2017-02-24] MEDS: DOCUSATE SODIUM 100 MG CAPSULE PO SCH ×2 (09:12→18:05)
[2017-02-24] MEDS: ASPIRIN 325 MG TABLET PO SCH (09:12)
[2017-02-24] MEDS: MULTIVITAMIN TABLET PO SCH (09:12)
[2017-02-24] MEDS: METOPROLOL TARTRATE 50 MG TABLET PO SCH ×2 (09:12→22:37)
[2017-02-24] MEDS: FUROSEMIDE 40 MG TABLET PO SCH (09:12)
[2017-02-24] MEDS: ISOSORBIDE MONONITRATE 30 MG TAB.ER.24H PO SCH (09:12)
[2017-02-24] MEDS: POTASSIUM CHLORIDE 10 MEQ TABLET.SA PO SCH ×2 (09:12→18:03)
[2017-02-24] MEDS ORDERED: FENTANYL CITRATE INJ/PF 100 MCG/2 ML AMPUL IV PRN ×3 (09:41)
[2017-02-24] MEDS ORDERED: ONDANSETRON HCL INJ/PF 4 MG/2 ML SDV IV PRN (09:41)
[2017-02-24] MEDS ORDERED: MEPERIDINE HCL/PF INJ 25 MG/1 ML DISP.SYRIN IV PRN (09:41)
[2017-02-24] MEDS ORDERED: PROMETHAZINE HCL INJ 25 MG/1 ML VIAL IV PRN ×2 (09:41)
[2017-02-24] MEDS ORDERED: DIPHENHYDRAMINE HCL 50 MG/ML VIAL IV PRN (09:41)
[2017-02-24] MEDS ORDERED: NEOSTIGMINE METHYLSULFATE 10 MG/10 ML VIAL ONE (13:28)
[2017-02-24] MEDS ORDERED: SUCCINYLCHOLINE CHLORIDE INJ 200 MG/10 ML VIAL ONE ×2 (13:28)
[2017-02-24] MEDS ORDERED: LIDOCAINE 2% INJ-PF (20 MG/ML) 10 ML AMPUL ONE ×2 (13:28)
[2017-02-24] MEDS ORDERED: VECURONIUM BROMIDE INJ 10 MG VIAL IV ONE (13:28)
[2017-02-24] MEDS ORDERED: GLYCOPYRROLATE INJ 0.4 MG/2 ML VIAL ONE (13:28)
--- NOTE | 2017-02-24 13:44 | RADIOLOGY REPORT (SQ) ---
EXAM DESCRIPTION: SHOULDER RIGHT 2 OR MORE VIEWS; NO CHG FLUORO COMPLETED DATE/TIME: 02/24/2017 11:30 am REASON FOR STUDY: RT SHOULDER ARTHROPLASTY ASSISTED WITH FLUORO IN OR COMPARISON: None. FLUOROSCOPY TIME: 0.4 minutes 18 digital images saved to PACS. TECHNIQUE: Intra-operative images acquired during surgical procedure to evaluate progress. NUMBER OF IMAGES: 8 digital fluoroscopic images LIMITATIONS: None. FINDINGS: Intra procedural imaging and fluoro. Please see the operative report for further details IMPRESSION: IMAGE(S) OBTAINED DURING PROCEDURE. COMMENT: Quality ID [id number]: Final reports for procedures using fluoroscopy that document radiation exp osure indices, or exposure time and number of fluorographic images (if radiation exposure indices are not available) Please consult full operative report of the attending physician for description of the procedure. TECHNICAL DOCUMENTATION: JOB ID: [id number] [employer] All Rights Reserved
[2017-02-24] MEDS: SERTRALINE HCL 50 MG TABLET PO SCH (18:03)
[2017-02-24] MEDS: RINGERS SOLUTION,LACTATED 1,000 ML IV PRN (19:52)
--- NOTE | 2017-02-24 21:49 | PROGRESS NOTE E ---
Progress Note NAME: PEDRO PEREZ : 1935 AGE: 81Y DATE: 02/24/2017 ROOM: 319 SUBJECTIVE: Note that the patient was seen after surgery. She did well in surgery. There were no untoward events noted. The patient's pain is well controlled. She denies any chest pain or discomfort. There is no shortness of breath. There is no PND or orthopnea. There is no arrhythmia seen on the monitor. There is no recurrence of atrial fibrillation. There is no ventricular arrhythmia. There are no TIA or CVA symptoms. OBJECTIVE: GENERAL: On examination the patient is mildly obese, well groomed, at present in no acute distress. She says the pain is well controlled at the site of the right shoulder surgery. VITAL SIGNS: She is afebrile with a temperature of 97.5 degrees Fahrenheit. Pulse is 75 beats per minute. Blood pressure is *------*. Respirations are 18 per minute. O2 saturations are 97% on 1.5 liters of nasal cannula. HEAD: Atraumatic/normocephalic. EYES: Pupils are equal, round, regular, reactive to light and accommodation. Extraocular movements are normal. There is no conjunctival pallor. There is no scleral icterus. EARS, NOSE, AND THROAT: Negative. NECK: Supple. There is no JVD. Carotids are equal. There is no bruit. There is no carotid delay. There is a transmitted aortic murmur which is mild with radiation to both carotids. S1, S2 is heard. There is no S4 gallop. There is no S3 gallop. S1 is of normal intensity. The second heart sound that is A2 is well preserved. There is murmur of mild aortic stenosis with radiation to the carotids without any carotid delay. There is a systolic murmur in the apex with mild radiation to the left axilla. There is no rub. ABDOMEN: Soft, nontender. There is no hepatosplenomegaly. Bowel sounds are well heard. There are no tender areas or masses. CHEST: Clear to auscultation/percussion. There is no chest-wall tenderness. EXTREMITIES: Femorals are diminished. There are no femur bruits. Leg pulses are diminished. There is no pedal edema. There is no DVT or cellulitis. There is no cyanosis or clubbing. There is no calf tenderness. Capillary refill is normal. CENTRAL NERVOUS SYSTEM: The patient is conscious, awake, alert, oriented x3 with no focal deficit. PSYCHIATRIC: The patient's judgement and insight are intact. Her affect is normal. FLUID BALANCE: Her 24-hour intake is 2730 mL, output is 1050 mL. DIAGNOSTIC DATA: The patient's white count is 5,600, hemoglobin is 9.8, hematocrit is 29.9, and platelet count is 194,000. The patient's sodium is 144.6, potassium now is normal at 3.7, chloride is 105, CO2 is 30, the patient's BUN is 9, creatinine 0.67, GFR is greater than 60, her glucose is 95, her calcium is 8.9, magnesium is 1.7. IMPRESSION: 1. STATUS POST RIGHT SHOULDER SURGERY. Postoperatively the patient is stable without any anginal symptoms or evidence for heart failure. 2. CHEST-WALL TENDERNESS. Noncardiac and chest-wall pain resolved. 3. SHORTNESS OF BREATH. Resolved. 4. NO SEVERE CAD BY CARDIAC CATHETERIZATION IN 2013. Patient with negative Cardiolite stress test. 5. HYPERTENSION. Well controlled. 6. HISTORY OF REPLACEMENT OF THE AORTIC VALVE WITH PEAK GRADIENT OF 25 MMHG ACROSS THE AORTIC VALVE WHICH IS PROBABLY NORMAL FOR THE PROSTHETIC VALVE. 7. HISTORY OF PAROXYSMAL ATRIAL FIBRILLATION, NO RECURRENCE. 8. DEMENTIA. At present seems to be lucid with no confusion. 9. ANXIETY. 10. DEPRESSION. 11. GERD. 12. HYPERLIPIDEMIA. 13. HYPOTHYROIDISM ON REPLACEMENT. 14. THE PATIENT IS DNR. RECOMMENDATIONS: Note, 30 minutes spent on this patient with more than 50% of the time spent on direct patient care. Her medications have been reviewed, and the medications have been discussed with the other caregiving providers on the case. I will follow with you. Note, this involved moderately complex medical decision making formulating the plan of care after discussions with the attending physician on the case. Will follow with you. DICTATING PHYSICIAN: LILI LINDSEY M.D. [id number] PHY#: [id number] ID: [id number] JOB#: [id number] ACCT: [id number] cc:LILI LINDSEY M.D. >
[2017-02-24] MEDS: ATORVASTATIN CALCIUM 10 MG TABLET PO SCH (22:37)
[2017-02-24] MEDS: MEMANTINE HCL 10 MG TABLET PO SCH (22:37)
[2017-02-25] MEDS: RINGERS SOLUTION,LACTATED 1,000 ML IV PRN (02:32)
[2017-02-25 04:54] LABS: ABSOLUTE LYMPHOCYTES (AUTO) 0.9 10^3/uL (0.5-4.7); ABSOLUTE MONOCYTES (AUTO) 0.9 10^3/uL (0.1-1.4); BASOPHILS % (AUTO) 0.3 % (0-2); EOSINOPHILS % (AUTO) 0.4 % (0-6); HEMATOCRIT 25.7 % (36.0-47.0); HEMOGLOBIN 8.1 g/dL (12.0-15.5); HGB HCT DIFFERENCE -1.4; LYMPHOCYTES % (AUTO) 9.2 % (13-45); MEAN CORPUSCULAR HEMOGLOBIN 31.6 pg (27.0-33.4); MEAN CORPUSCULAR HGB CONC 31.5 g/dL (32.0-36.0); MEAN CORPUSCULAR VOLUME 100 fl (80-97); RED BLOOD COUNT 2.57 10^6/uL (3.72-5.28); RED CELL DISTRIBUTION WIDTH 14.3 % (11.5-14.0); SEGMENTED NEUTROPHILS % (AUTO) 81.1 % (42-78); WHITE BLOOD COUNT 9.8 10^3/uL (4.0-10.5)
[2017-02-25 05:12] LABS: ANION GAP 7 (5-19); BLOOD UREA NITROGEN 10 mg/dL (7-20); CALCIUM 7.8 mg/dL (8.4-10.2); CARBON DIOXIDE 29 mmol/L (22-30); CHLORIDE 106 mmol/L (98-107); CREATININE RESULT 0.86 mg/dL (0.52-1.25); GLUCOSE 106 mg/dL (75-110); POTASSIUM 4.2 mmol/L (3.6-5.0); SODIUM 142.4 mmol/L (137-145)
[2017-02-25] MEDS: LEVOTHYROXINE SODIUM 0.05 MG TABLET PO SCH (06:09)
[2017-02-25] MEDS: LANSOPRAZOLE 30 MG TAB.RAP.DR PO SCH (06:09)
[2017-02-25] MEDS: BUPROPION HCL 100 MG TABLET PO SCH ×3 (06:09→22:20)
[2017-02-25] MEDS: GABAPENTIN 100 MG CAPSULE PO SCH ×3 (06:09→22:19)
--- NOTE | 2017-02-25 07:04 | PDOC PROGRESS REPORT ---
Subjective Progress Note for:: 02/25/17 Subjective:: Patient with minor complaints of discomfort this morning Physical Exam Vital Signs: Temp Pulse Resp BP Pulse Ox 37.1 C 70 16 110/50 L 99 02/25/17 04:11 02/25/17 04:11 02/25/17 04:11 02/25/17 04:11 02/25/17 04:11 Intake & Output 02/24/17 02/25/17 02/26/17 06:59 06:59 06:59 Intake Total 2730 4749 Output Total 1250 1101 Balance 1480 3648 Weight 76.9 kg 84.5 kg General appearance: PRESENT: mild distress, obese Head exam: PRESENT: normocephalic Eye exam: PRESENT: EOMI Respiratory exam: PRESENT: unlabored Cardiovascular exam: PRESENT: RRR GI/Abdominal exam: PRESENT: soft Rectal exam: PRESENT: deferred Extremities exam: PRESENT: other - Right upper extremity dressing clean dry and intact. Distal neurovascular examination is intact. There is considerable ecchymosis. Neurological exam: PRESENT: alert, awake, oriented to person, oriented to place , oriented to time, oriented to situation. ABSENT: motor sensory deficit Psychiatric exam: PRESENT: appropriate affect, normal mood. ABSENT: homicidal ideation, suicidal ideation Skin exam: PRESENT: dry, intact, warm. ABSENT: cyanosis, rash Results Laboratory Results: 02/25/17 04:36 02/25/17 04:36 02/25/17 02/25/17 04:36 04:36 WBC 9.8 RBC 2.57 L Hgb 8.1 L Hct 25.7 L MCV 100 H MCH 31.6 MCHC 31.5 L RDW 14.3 H Plt Count 174 Seg Neutrophils % 81.1 H Lymphocytes % 9.2 L Monocytes % 9.0 Eosinophils % 0.4 Basophils % 0.3 Absolute Neutrophils 8.0 Absolute Lymphocytes 0.9 Absolute Monocytes 0.9 Absolute Eosinophils 0.0 Absolute Basophils 0.0 Sodium 142.4 Potassium 4.2 Chloride 106 Carbon Dioxide 29 Anion Gap 7 BUN 10 Creatinine 0.86 Est GFR ( Amer) > 60 Est GFR (Non-Af Amer) > 60 Glucose 106 Calcium 7.8 L 02/18/17 02/18/17 02/18/17 13:20 15:52 21:57 CK-MB (CK-2) 1.93 2.55 Troponin I 0.037 0.021 0.056 02/19/17 04:08 CK-MB (CK-2) 2.41 Troponin I 0.060 Impressions: Chest X-Ray 02/18/17 09:33 IMPRESSION: STABLE CHRONIC CHANGES. BORDERLINE CARDIOMEGALY. LINEAR ATELECTASIS/SCARRING. NO ACUTE RADIOGRAPHIC FINDING IN THE CHEST. Chest/Abdomen CTA 02/21/17 00:00 IMPRESSION: No CT angio evidence of acute pulmonary emboli. Fluoroscopy 02/24/17 00:00 IMPRESSION: IMAGE(S) OBTAINED DURING PROCEDURE. Shoulder X-Ray 02/24/17 00:00 IMPRESSION: IMAGE(S) OBTAINED DURING PROCEDURE. Status: Imported from PACS Assessment & Plan - Diagnosis (1) Humeral head fracture Qualifiers: Laterality: right Is this a current diagnosis for this admission?: YesPlan: Patient postop day 1 from right shoulder hemiarthroplasty. Complicated by a humeral fracture. Plan for gentle mobilization with physical therapy today and transferred to a shelter facility when medically appropriate. Postoperative hematocrit is currently 25%.
--- NOTE | 2017-02-25 08:54 | PDOC PROGRESS REPORT ---
Subjective Progress Note for:: 02/25/17 Subjective:: The patient states to feel better. She is presently 1 day postop. His shoulder is feeling well. She does not have much pain. Discussed the need to go to the rehab Physical Exam Vital Signs: Temp Pulse Resp BP Pulse Ox 99.1 F 76 20 132/47 H 100 02/25/17 07:24 02/25/17 07:24 02/25/17 07:24 02/25/17 07:24 02/25/17 07:24 Intake & Output 02/24/17 02/25/17 02/26/17 06:59 06:59 06:59 Intake Total 2730 4749 Output Total 1250 1101 Balance 1480 3648 Weight 76.9 kg 84.5 kg General appearance: PRESENT: mild distress Head exam: PRESENT: atraumatic Neck exam: ABSENT: carotid bruit Respiratory exam: PRESENT: crackles Cardiovascular exam: PRESENT: +S1, +S2 Pulses: PRESENT: normal carotid pulses Vascular exam: PRESENT: normal capillary refill GI/Abdominal exam: PRESENT: soft Extremities exam: PRESENT: tenderness Musculoskeletal exam: PRESENT: tenderness Neurological exam: PRESENT: alert, awake Psychiatric exam: PRESENT: anxious Results Laboratory Results: 02/25/17 04:36 02/25/17 04:36 02/25/17 02/25/17 04:36 04:36 WBC 9.8 RBC 2.57 L Hgb 8.1 L Hct 25.7 L MCV 100 H MCH 31.6 MCHC 31.5 L RDW 14.3 H Plt Count 174 Seg Neutrophils % 81.1 H Lymphocytes % 9.2 L Monocytes % 9.0 Eosinophils % 0.4 Basophils % 0.3 Absolute Neutrophils 8.0 Absolute Lymphocytes 0.9 Absolute Monocytes 0.9 Absolute Eosinophils 0.0 Absolute Basophils 0.0 Sodium 142.4 Potassium 4.2 Chloride 106 Carbon Dioxide 29 Anion Gap 7 BUN 10 Creatinine 0.86 Est GFR ( Amer) > 60 Est GFR (Non-Af Amer) > 60 Glucose 106 Calcium 7.8 L 02/18/17 02/18/17 02/18/17 13:20 15:52 21:57 CK-MB (CK-2) 1.93 2.55 Troponin I 0.037 0.021 0.056 02/19/17 04:08 CK-MB (CK-2) 2.41 Troponin I 0.060 Impressions: Chest X-Ray 02/18/17 09:33 IMPRESSION: STABLE CHRONIC CHANGES. BORDERLINE CARDIOMEGALY. LINEAR ATELECTASIS/SCARRING. NO ACUTE RADIOGRAPHIC FINDING IN THE CHEST. Chest/Abdomen CTA 02/21/17 00:00 IMPRESSION: No CT angio evidence of acute pulmonary emboli. Fluoroscopy 02/24/17 00:00 IMPRESSION: IMAGE(S) OBTAINED DURING PROCEDURE. Shoulder X-Ray 02/24/17 00:00 IMPRESSION: IMAGE(S) OBTAINED DURING PROCEDURE. Assessment & Plan - Diagnosis (1) Chest pain due to myocardial ischemia Qualifiers: Ischemic chest pain type: unspecified angina pectoris type Qualified Code(s): I20.9 - Angina pectoris, unspecified (2) Shortness of breath Is this a current diagnosis for this admission?: Yes (3) Hypertension Is this a current diagnosis for this admission?: YesPlan: Blood pressure well controlled. (4) Humeral head fracture Qualifiers: Laterality: right Is this a current diagnosis for this admission?: YesPlan: 1 day postop doing well some mild ecchymoses over the shoulder (5) Chest wall pain Is this a current diagnosis for this admission?: Yes (6) Fluid overload Is this a current diagnosis for this admission?: YesPlan: Most probably due to IV fluids given during the surgery and post surgery and recovery (7) Anemia Is this a current diagnosis for this admission?: YesPlan: Most probably secondary to dilutional fluid overload
[2017-02-25] MEDS: ENOXAPARIN SODIUM INJ 40 MG/0.4 ML DISP.SYRIN SUBCUT SCH (09:47)
[2017-02-25] MEDS: ISOSORBIDE MONONITRATE 30 MG TAB.ER.24H PO SCH (09:48)
[2017-02-25] MEDS: FERROUS SULFATE 325 MG TABLET PO SCH ×2 (09:48→17:53)
[2017-02-25] MEDS: METOPROLOL TARTRATE 50 MG TABLET PO SCH ×2 (09:48→22:19)
[2017-02-25] MEDS: FUROSEMIDE INJ/PF 40 MG/4 ML SDV IV SCH ×2 (09:48→22:24)
[2017-02-25] MEDS: POTASSIUM CHLORIDE 10 MEQ TABLET.SA PO SCH ×2 (09:49→17:53)
[2017-02-25] MEDS: MULTIVITAMIN TABLET PO SCH (09:49)
[2017-02-25] MEDS: DOCUSATE SODIUM 100 MG CAPSULE PO SCH ×2 (09:49→17:53)
[2017-02-25] MEDS: ASPIRIN 325 MG TABLET PO SCH (09:49)
[2017-02-25] MEDS: HYDROMORPHONE HCL 2 MG TABLET PO PRN (14:11)
--- NOTE | 2017-02-25 15:19 | PROGRESS NOTE E ---
Progress Note NAME: PEDRO PEREZ : 1935 AGE: 81Y DATE: 02/25/2017 ROOM: 319 SUBJECTIVE: The patient denies any chest pain or discomfort. She has no PND or orthopnea. There is no shortness of breath. There is no chest wall tenderness or anginal symptoms. There are no arrhythmias on the monitor. There is no recurrence of atrial fibrillation. There are no TIA or CVA symptoms. There is no leg edema. The patient's right shoulder site surgery pain is well controlled on current medications. OBJECTIVE: GENERAL: On examination the patient is mildly obese, well groomed, at present in no acute distress. VITAL SIGNS: She has a low grade temperature of 99.2 degrees Fahrenheit, pulse is 70 beats per minute, blood pressure 130/92, respirations 20 per minute, 02 saturations are 94% on 1.5 L nasal cannula. HEENT: Head is atraumatic, normocephalic. Eyes: Pupils are equal, round, regular and reactive to light and accommodation. Extraocular movements are normal. There is no conjunctival pallor. There is no scleral icterus. ENT is negative. RIGHT SHOULDER: The stitches are dry. There is a region of ecchymosis around the site of incision of the right shoulder. NECK: Supple. There is no JVD. Carotids are equal. There is no bruit. There is carotid delay. There is transmitted aortic murmur which is mild with radiation to both carotids. HEART: S1 and S2 are heard. There is no S3 gallop. There is no S4 gallop. S1 is of normal intensity. The second heart sound that is A2 is well preserved. There is murmur of mild aortic stenosis with radiation to the carotids without any carotid delay. There is a systolic murmur in the apex with mild radiation to the left axilla. There is no rub. ABDOMEN: Soft, slightly obese, nontender. There is no hepatosplenomegaly. Bowel sounds are well heard. There are no tender areas or masses. CHEST: Clear to auscultation and percussion. There is no chest wall tenderness. EXTREMITIES: Femorals are diminished. There are no femur bruits. Leg pulses are diminished. There is no pedal edema. There is no DVT or cellulitis. There is no cyanosis or clubbing. There is no calf tenderness. Capillary refill is normal. CENTRAL NERVOUS SYSTEM: The patient is conscious, awake, alert, oriented x3 with no focal deficits. PSYCHIATRIC: The patient's judgment and insight are intact. Her affect is normal. The patient today does not appear to be confused or agitated as she has been throughout the admission. She has not had any major confusion or evidence of dementia. DIAGNOSTICS: The patient's white count is 9800, hemoglobin is low at 8.1, hematocrit is 25.7, platelet count is 174,000. The patient's sodium is 142.4, potassium 4.2, chloride is 106, CO2 is 29. The patient's BUN is 10, creatinine is 0.86, GFR is greater than 60, glucose is 106, calcium is 7.8. The patient's 24-hour intake has been 4749 mL. Output is 1101 mL. IMPRESSION: 1. STATUS POST RIGHT SHOULDER SURGERY. Patient is stable. 2. CHEST WALL TENDERNESS RESOLVED. No anginal symptoms. 3. SHORTNESS OF BREATH. Resolved. 4. NO SEVERE CAD BY CARDIAC CATHETERIZATION IN 2013. Patient with negative Cardiolite stress test recently on February 21, 2017. 5. HYPERTENSION. Well controlled. 6. 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 7. HISTORY OF PAROXYSMAL ATRIAL FIBRILLATION, NO RECURRENCE. 8. DEMENTIA. At present seems to be lucid with no confusion. No definite evidence of dementia this admission. 9. ANXIETY. 10. DEPRESSION. 11. GERD. 12. HYPERLIPIDEMIA. 13. HYPOTHYROIDISM ON REPLACEMENT. 14. THE PATIENT IS DNR. RECOMMENDATIONS: Note, 30 minutes spent on this patient with more than 50% of the time spent on direct patient care. Her medications have been reviewed. Anemia is most likely secondary to hemodilution. Will hold IV fluids. Continue current medications. Note, moderately complex decision making involved in this case. The patient's cardiac status is stable. We will sign off. Discussed with Dr. Plaza. The patient will follow up with me as an outpatient since she is a patient of my partner in the office. Thanking you. Note, 30 minutes spent on this patient with more than 50% of the time spent on direct patient care. DICTATING PHYSICIAN: LILI LINDSEY M.D. [id number] PHY#: [id number] ID: [id number] JOB#: [id number] ACCT: [id number] cc: >
[2017-02-25] MEDS: SERTRALINE HCL 50 MG TABLET PO SCH (17:53)
[2017-02-25] MEDS: ATORVASTATIN CALCIUM 10 MG TABLET PO SCH (22:19)
[2017-02-25] MEDS: MEMANTINE HCL 10 MG TABLET PO SCH (22:20)
[2017-02-26] MEDS: ACETAMINOPHEN 325 MG TABLET PO PRN (01:59)
[2017-02-26] MEDS: LEVOTHYROXINE SODIUM 0.05 MG TABLET PO SCH (06:43)
[2017-02-26] MEDS: BUPROPION HCL 100 MG TABLET PO SCH ×3 (06:43→21:36)
[2017-02-26] MEDS: LANSOPRAZOLE 30 MG TAB.RAP.DR PO SCH (06:44)
[2017-02-26] MEDS: GABAPENTIN 100 MG CAPSULE PO SCH ×3 (06:44→21:35)
[2017-02-26 08:48] LABS: ABSOLUTE LYMPHOCYTES (AUTO) 0.9 10^3/uL (0.5-4.7); ABSOLUTE MONOCYTES (AUTO) 0.9 10^3/uL (0.1-1.4); ABSOLUTE NEUT (AUTO) 8.5 10^3/uL (1.7-8.2); BASOPHILS % (AUTO) 0.4 % (0-2); EOSINOPHILS % (AUTO) 0.3 % (0-6); HEMATOCRIT 22.5 % (36.0-47.0); HGB HCT DIFFERENCE -0.6; LYMPHOCYTES % (AUTO) 8.5 % (13-45); MEAN CORPUSCULAR HGB CONC 32.5 g/dL (32.0-36.0); MEAN CORPUSCULAR VOLUME 98 fl (80-97); MONOCYTES % (AUTO) 8.6 % (3-13); RED BLOOD COUNT 2.29 10^6/uL (3.72-5.28); RED CELL DISTRIBUTION WIDTH 13.6 % (11.5-14.0); SEGMENTED NEUTROPHILS % (AUTO) 82.2 % (42-78); WHITE BLOOD COUNT 10.3 10^3/uL (4.0-10.5)
[2017-02-26 08:51] LABS: HEMOGLOBIN 7.3 g/dL (12.0-15.5)
[2017-02-26] MEDS ORDERED: NORMAL SALINE 250 ML IV PRN ×2 (08:58)
--- NOTE | 2017-02-26 09:01 | PDOC PROGRESS REPORT ---
Subjective Progress Note for:: 02/26/17 Subjective:: Patient is seen on morning rounds. She is resting in bed. She remains confused x2. She complains of mild discomfort in the right shoulder. She denies any shortness of breath or dyspnea. She denies any other complaints at the present time. We discussed need for her to do short term rehab and participate with physical therapy while she is here. Physical Exam Vital Signs: Temp Pulse Resp BP Pulse Ox 98.7 F 77 20 129/47 H 96 02/26/17 07:34 02/26/17 07:34 02/26/17 07:34 02/26/17 07:34 02/26/17 07:34 Intake & Output 02/25/17 02/26/17 02/27/17 06:59 06:59 06:59 Intake Total 4749 480 Output Total 1101 1200 Balance 3648 -720 Weight 84.5 kg 82.9 kg General appearance: PRESENT: no acute distress, obese, well-developed, well- nourished Head exam: PRESENT: atraumatic, normocephalic Eye exam: PRESENT: conjunctiva pale Ear exam: PRESENT: normal external ear exam Mouth exam: PRESENT: moist, tongue midline Neck exam: ABSENT: carotid bruit, JVD, lymphadenopathy, thyromegaly Respiratory exam: PRESENT: clear to auscultation maura. ABSENT: rales, rhonchi, wheezes Cardiovascular exam: PRESENT: RRR. ABSENT: diastolic murmur, rubs, systolic murmur Pulses: PRESENT: normal dorsalis pedis pul Vascular exam: PRESENT: normal capillary refill GI/Abdominal exam: PRESENT: normal bowel sounds, soft. ABSENT: distended, guarding, mass, organolmegaly, rebound, tenderness Rectal exam: PRESENT: deferred Extremities exam: PRESENT: tenderness, other - right shoulder in a sling Musculoskeletal exam: PRESENT: normal inspection, tenderness Neurological exam: PRESENT: alert, altered, awake, CN II-XII grossly intact Psychiatric exam: PRESENT: flat affect Skin exam: PRESENT: dry, intact, warm. ABSENT: cyanosis, rash Results Laboratory Results: 02/18/17 02/18/17 02/18/17 13:20 15:52 21:57 CK-MB (CK-2) 1.93 2.55 Troponin I 0.037 0.021 0.056 02/19/17 04:08 CK-MB (CK-2) 2.41 Troponin I 0.060 Impressions: Chest X-Ray 02/18/17 09:33 IMPRESSION: STABLE CHRONIC CHANGES. BORDERLINE CARDIOMEGALY. LINEAR ATELECTASIS/SCARRING. NO ACUTE RADIOGRAPHIC FINDING IN THE CHEST. Chest/Abdomen CTA 02/21/17 00:00 IMPRESSION: No CT angio evidence of acute pulmonary emboli. Fluoroscopy 02/24/17 00:00 IMPRESSION: IMAGE(S) OBTAINED DURING PROCEDURE. Shoulder X-Ray 02/24/17 00:00 IMPRESSION: IMAGE(S) OBTAINED DURING PROCEDURE. Assessment & Plan - Diagnosis (1) Anemia Qualifiers: Anemia type: other cause Is this a current diagnosis for this admission?: YesPlan: Patient's hgb down to 7.3 today. Will transfuse 2 units of PRBCs (2) Chest wall pain Is this a current diagnosis for this admission?: YesPlan: Secondary to fall and right humeral head fracture. She is post op day #2 right shoulder hemiarthroplasty (3) Dementia Is this a current diagnosis for this admission?: Yes (4) Humeral head fracture Qualifiers: Encounter type: subsequent encounter Laterality: right Is this a current diagnosis for this admission?: YesPlan: post op day #2 management per ortho. OOB with PT (5) Hypertension Is this a current diagnosis for this admission?: YesPlan: She is presently normotensive (6) Hypothyroid Qualifiers: Hypothyroidism type: acquired Qualified Code(s): E03.9 - Hypothyroidism, unspecified Is this a current diagnosis for this admission?: YesPlan: Continue synthroid (7) Shortness of breath Is this a current diagnosis for this admission?: YesPlan: Secondary to deconditioning, anemia and fluid volume overload (8) Excess fluid volume Is this a current diagnosis for this admission?: YesPlan: Continue diuresis - Time Time Spent with patient: 25-34 minutes Critical Time spent with patient: 15-24 minutes Medications reviewed and adjusted accordingly: Yes Anticipated discharge: Acute Rehab
[2017-02-26 09:22] LABS: ANION GAP 8 (5-19); BLOOD UREA NITROGEN 12 mg/dL (7-20); CALCIUM 7.8 mg/dL (8.4-10.2); CARBON DIOXIDE 28 mmol/L (22-30); CHLORIDE 104 mmol/L (98-107); CREATININE RESULT 0.77 mg/dL (0.52-1.25); GLUCOSE 116 mg/dL (75-110); POTASSIUM 3.7 mmol/L (3.6-5.0); SODIUM 139.6 mmol/L (137-145)
[2017-02-26] MEDS: ENOXAPARIN SODIUM INJ 40 MG/0.4 ML DISP.SYRIN SUBCUT SCH (09:29)
[2017-02-26] MEDS: FERROUS SULFATE 325 MG TABLET PO SCH ×2 (09:29→18:25)
[2017-02-26] MEDS: DOCUSATE SODIUM 100 MG CAPSULE PO SCH ×2 (09:29→18:25)
[2017-02-26] MEDS: POTASSIUM CHLORIDE 10 MEQ TABLET.SA PO SCH ×2 (09:29→18:25)
[2017-02-26] MEDS: MULTIVITAMIN TABLET PO SCH (09:29)
[2017-02-26] MEDS: ASPIRIN 325 MG TABLET PO SCH (09:30)
[2017-02-26] MEDS: FUROSEMIDE INJ/PF 40 MG/4 ML SDV IV SCH (09:30)
[2017-02-26] MEDS: ISOSORBIDE MONONITRATE 30 MG TAB.ER.24H PO SCH (09:30)
[2017-02-26] MEDS: METOPROLOL TARTRATE 50 MG TABLET PO SCH ×2 (09:30→21:36)
[2017-02-26] MEDS: SERTRALINE HCL 50 MG TABLET PO SCH (18:25)
[2017-02-26] MEDS: MEMANTINE HCL 10 MG TABLET PO SCH (21:35)
[2017-02-26] MEDS: ATORVASTATIN CALCIUM 10 MG TABLET PO SCH (21:36)
[2017-02-26] MEDS ORDERED: FUROSEMIDE 40 MG TABLET PO ONE (22:00)
[2017-02-27] MEDS: ACETAMINOPHEN 325 MG TABLET PO PRN ×2 (00:09→22:21)
[2017-02-27] MEDS: LANSOPRAZOLE 30 MG TAB.RAP.DR PO SCH (05:45)
[2017-02-27] MEDS: LEVOTHYROXINE SODIUM 0.05 MG TABLET PO SCH (05:45)
[2017-02-27] MEDS: GABAPENTIN 100 MG CAPSULE PO SCH ×3 (05:46→22:22)
[2017-02-27] MEDS: BUPROPION HCL 100 MG TABLET PO SCH ×3 (05:46→22:21)
--- NOTE | 2017-02-27 07:17 | PDOC PROGRESS REPORT ---
Subjective Progress Note for:: 02/27/17 Subjective:: Complaining of the right upper extremity immobilization device/ abduction pillow Physical Exam Vital Signs: Temp Pulse Resp BP Pulse Ox 37.2 C 76 20 137/37 H 94 02/27/17 03:20 02/27/17 03:20 02/27/17 03:20 02/27/17 03:20 02/27/17 03:20 Intake & Output 02/26/17 02/27/17 02/28/17 06:59 06:59 06:59 Intake Total 480 500 Output Total 1200 2425 Balance -720 -1925 Weight 82.9 kg 81.1 kg General appearance: PRESENT: mild distress Head exam: PRESENT: normocephalic Respiratory exam: PRESENT: unlabored Cardiovascular exam: PRESENT: RRR Pulses: PRESENT: normal radial pulses Vascular exam: PRESENT: normal capillary refill GI/Abdominal exam: PRESENT: soft Rectal exam: PRESENT: deferred Extremities exam: PRESENT: other - Extremity immobilized in an abduction pillow. Neurovascular examination of the hand is intact. Original postoperative surgical dressing is clean dry and intact. There is considerable ecchymosis. Skin exam: PRESENT: dry, intact, warm. ABSENT: cyanosis, rash Results Laboratory Results: 02/26/17 08:12 02/26/17 08:12 02/26/17 02/26/17 02/26/17 08:12 08:12 10:20 WBC 10.3 RBC 2.29 L Hgb 7.3 L Hct 22.5 L MCV 98 H MCH 32.0 MCHC 32.5 RDW 13.6 Plt Count 187 Seg Neutrophils % 82.2 H Lymphocytes % 8.5 L Monocytes % 8.6 Eosinophils % 0.3 Basophils % 0.4 Absolute Neutrophils 8.5 H Absolute Lymphocytes 0.9 Absolute Monocytes 0.9 Absolute Eosinophils 0.0 Absolute Basophils 0.0 Sodium 139.6 Potassium 3.7 Chloride 104 Carbon Dioxide 28 Anion Gap 8 BUN 12 Creatinine 0.77 Est GFR ( Amer) > 60 Est GFR (Non-Af Amer) > 60 Glucose 116 H Calcium 7.8 L Blood Type A POSITIVE Antibody Screen NEGATIVE 02/18/17 02/18/17 02/18/17 13:20 15:52 21:57 CK-MB (CK-2) 1.93 2.55 Troponin I 0.037 0.021 0.056 02/19/17 04:08 CK-MB (CK-2) 2.41 Troponin I 0.060 Impressions: Chest X-Ray 02/18/17 09:33 IMPRESSION: STABLE CHRONIC CHANGES. BORDERLINE CARDIOMEGALY. LINEAR ATELECTASIS/SCARRING. NO ACUTE RADIOGRAPHIC FINDING IN THE CHEST. Chest/Abdomen CTA 02/21/17 00:00 IMPRESSION: No CT angio evidence of acute pulmonary emboli. Fluoroscopy 02/24/17 00:00 IMPRESSION: IMAGE(S) OBTAINED DURING PROCEDURE. Shoulder X-Ray 02/24/17 00:00 IMPRESSION: IMAGE(S) OBTAINED DURING PROCEDURE. Status: Imported from PACS Assessment & Plan - Diagnosis (1) Humeral head fracture Qualifiers: Encounter type: subsequent encounter Laterality: right Is this a current diagnosis for this admission?: YesPlan: 81-year-old white female postop from a right proximal femoral hemiarthroplasty with some postoperative anemia for which she received 2 units of packed red blood cells. Otherwise she seems to be doing relatively well. Anticipate discharge to a alf facility when bed is available. - Time Time Spent with patient: 15-24 minutes Anticipated discharge: SNF Within: when bed available
[2017-02-27 07:50] LABS: ANION GAP 9 (5-19); BLOOD UREA NITROGEN 12 mg/dL (7-20); CALCIUM 7.9 mg/dL (8.4-10.2); CARBON DIOXIDE 29 mmol/L (22-30); CHLORIDE 104 mmol/L (98-107); CREATININE RESULT 0.74 mg/dL (0.52-1.25); GLUCOSE 101 mg/dL (75-110); POTASSIUM 3.7 mmol/L (3.6-5.0); SODIUM 142.3 mmol/L (137-145)
[2017-02-27 07:54] LABS: ABSOLUTE EOSINOPHILS # (AUTO) 0.1 10^3/uL (0.0-0.6); ABSOLUTE LYMPHOCYTES (AUTO) 0.9 10^3/uL (0.5-4.7); ABSOLUTE MONOCYTES (AUTO) 0.7 10^3/uL (0.1-1.4); ABSOLUTE NEUT (AUTO) 6.9 10^3/uL (1.7-8.2); BASOPHILS % (AUTO) 0.2 % (0-2); EOSINOPHILS % (AUTO) 0.8 % (0-6); HEMATOCRIT 24.1 % (36.0-47.0); HGB HCT DIFFERENCE -0.7; LYMPHOCYTES % (AUTO) 9.9 % (13-45); MEAN CORPUSCULAR HGB CONC 32.2 g/dL (32.0-36.0); MEAN CORPUSCULAR VOLUME 99 fl (80-97); MONOCYTES % (AUTO) 8.1 % (3-13); RED BLOOD COUNT 2.43 10^6/uL (3.72-5.28); RED CELL DISTRIBUTION WIDTH 13.9 % (11.5-14.0); WHITE BLOOD COUNT 8.6 10^3/uL (4.0-10.5)
[2017-02-27 08:01] LABS: HEMOGLOBIN 7.8 g/dL (12.0-15.5)
[2017-02-27] MEDS ORDERED: NORMAL SALINE 250 ML IV PRN ×2 (08:40)
[2017-02-27] MEDS: ASPIRIN 325 MG TABLET PO SCH (11:06)
[2017-02-27] MEDS: METOPROLOL TARTRATE 50 MG TABLET PO SCH ×2 (11:07→22:22)
[2017-02-27] MEDS: FERROUS SULFATE 325 MG TABLET PO SCH ×2 (11:07→17:50)
[2017-02-27] MEDS: DOCUSATE SODIUM 100 MG CAPSULE PO SCH ×2 (11:07→17:50)
[2017-02-27] MEDS: MULTIVITAMIN TABLET PO SCH (11:08)
[2017-02-27] MEDS: POTASSIUM CHLORIDE 10 MEQ TABLET.SA PO SCH ×2 (11:08→17:50)
[2017-02-27] MEDS: ISOSORBIDE MONONITRATE 30 MG TAB.ER.24H PO SCH (11:08)
[2017-02-27] MEDS: ENOXAPARIN SODIUM INJ 40 MG/0.4 ML DISP.SYRIN SUBCUT SCH (11:10)
[2017-02-27] MEDS ORDERED: FUROSEMIDE INJ/PF 40 MG/4 ML SDV IV ONE (11:15)
--- NOTE | 2017-02-27 11:16 | RADIOLOGY REPORT (SQ) ---
EXAM DESCRIPTION: FLUORO/CV PLACEMENT COMPLETE DATE/TIME: 02/27/2017 10:16 am REASON FOR STUDY: IV ACCESS FINDINGS: Please see combined report for performance of procedure and radiologic supervision and int erpretation. IMPRESSION: Please see combined report for performance of procedure and radiologic supervision and i nterpretation.
--- NOTE | 2017-02-27 11:16 | RADIOLOGY REPORT (SQ) ---
EXAM DESCRIPTION: PICC INSERTION COMPLETED DATE/TIME: 02/27/2017 10:16 am REASON FOR STUDY: unable to obtain IV access. COMPARISON: None. FLUOROSCOPY TIME: 13 seconds 2 images saved to PACS. TECHNIQUE: Fluoroscopic and ultrasound guided PICC placement. LIMITATIONS: None. PROCEDURE: After written consent and assessment were obtained, the patient was brought into the fluo roscopy room and place supine on the table. Ultrasound was used on the patient's left arm for PICC a ccess. The left arm was prepped and draped in a sterile fashion along with the ultrasound probe. The entry site was anesthetized with 1% lidocaine. A 21 gauge 7 cm needle was advanced through the skin a nd into the basilic vein under live ultrasound guidance. An ultrasound image was saved to PACS confi ing access site. A .018 guide wire was then inserted through the needle and into the venous system . The needle was the removed and an 11 blade scalpel was used to make a 1cm skin incision. A 5 fr pe el-away sheath was advanced over the wire and into the venous system. A measurement was then made usi ng the existing wire and live fluoroscopic guidance. The wire was then removed and the trimmed. The P ICC was advanced through the peel-away sheath and into the venous system. The peel-away sheath was re moved and the catheter was adhered to the patients arm with a stat lock. The catheter was then aspira donte and flushed and a sterile bandage was placed over the access site. A fluoroscopic spot image was saved to PACS confirming the catheter tip within the superior vena cava. IMPRESSION: SUCCESSFUL PLACEMENT OF A 5 FR dual LUMEN 39 CM PICC IN THE basilic VEIN. COMMENT: Patient medication list reviewed: Yes. Quality ID [id number]: Final reports for procedures using fluoroscopy that document radiation exposure jose sariah, or exposure time and number of fluorographic images (if radiation exposure indices are not avail able) Quality ID #[id number]: The patient was prepped and draped using maximum sterile barrier technique including cap, mask, sterile gown, sterile gloves, a large sterile sheet, hand hygiene, and 2% Chlorhexidine fo r cutaneous antisepsis. When ultrasound is used, sterile ultrasound techniques are followed requiring sterile gel and sterile probes. TECHNICAL DOCUMENTATION: JOB ID: [id number]- All Rights Reserved
--- NOTE | 2017-02-27 11:16 | RADIOLOGY REPORT (SQ) ---
EXAM DESCRIPTION: U/S GUIDE FOR VASCULAR ACCESS COMPLETE DATE/TIME: 02/27/2017 10:16 am REASON FOR STUDY: IV ACCESS FINDINGS: Please see combined report for performance of procedure and radiologic supervision and int erpretation. IMPRESSION: Please see combined report for performance of procedure and radiologic supervision and i nterpretation.
[2017-02-27] MEDS: FUROSEMIDE INJ/PF 40 MG/4 ML SDV IV SCH ×2 (11:17→22:59)
--- NOTE | 2017-02-27 15:45 | PDOC PROGRESS REPORT ---
Subjective Progress Note for:: 02/27/17 Subjective:: Patient is seen on morning rounds. She is resting in bed. She remains confused x2. She complains of mild discomfort in the right shoulder. She denies any shortness of breath or dyspnea. She denies any other complaints at the present time. We discussed need for her to do short term rehab and participate with physical therapy while she is here. She is in agreement to the plan Physical Exam Vital Signs: Temp Pulse Resp BP Pulse Ox 98.1 F 81 20 130/50 H 96 02/27/17 11:59 02/27/17 14:00 02/27/17 11:59 02/27/17 11:59 02/27/17 11:59 Intake & Output 02/26/17 02/27/17 02/28/17 06:59 06:59 06:59 Intake Total 480 500 118 Output Total 1200 2425 200 Balance -720 -1925 -82 Weight 82.9 kg 81.1 kg General appearance: PRESENT: no acute distress, obese, well-developed, well- nourished Head exam: PRESENT: atraumatic, normocephalic Eye exam: PRESENT: conjunctiva pink, EOMI, PERRLA. ABSENT: scleral icterus Ear exam: PRESENT: normal external ear exam Mouth exam: PRESENT: moist, tongue midline Neck exam: ABSENT: carotid bruit, JVD, lymphadenopathy, thyromegaly Respiratory exam: PRESENT: clear to auscultation maura. ABSENT: rales, rhonchi, wheezes Cardiovascular exam: PRESENT: RRR. ABSENT: diastolic murmur, rubs, systolic murmur Pulses: PRESENT: normal dorsalis pedis pul Vascular exam: PRESENT: normal capillary refill GI/Abdominal exam: PRESENT: normal bowel sounds, soft. ABSENT: distended, guarding, mass, organolmegaly, rebound, tenderness Rectal exam: PRESENT: deferred Extremities exam: PRESENT: full ROM. ABSENT: calf tenderness, clubbing, pedal edema Neurological exam: PRESENT: alert, awake, oriented to person, oriented to place , oriented to time, oriented to situation, CN II-XII grossly intact. ABSENT: motor sensory deficit Psychiatric exam: PRESENT: appropriate affect, normal mood. ABSENT: homicidal ideation, suicidal ideation Skin exam: PRESENT: dry, intact, warm. ABSENT: cyanosis, rash Results Laboratory Results: 02/27/17 07:18 02/27/17 07:18 02/26/17 02/27/17 02/27/17 10:20 07:18 07:18 WBC 8.6 RBC 2.43 L Hgb 7.8 L Hct 24.1 L MCV 99 H MCH 32.0 MCHC 32.2 RDW 13.9 Plt Count 205 Seg Neutrophils % 81.0 H Lymphocytes % 9.9 L Monocytes % 8.1 Eosinophils % 0.8 Basophils % 0.2 Absolute Neutrophils 6.9 Absolute Lymphocytes 0.9 Absolute Monocytes 0.7 Absolute Eosinophils 0.1 Absolute Basophils 0.0 Sodium 142.3 Potassium 3.7 Chloride 104 Carbon Dioxide 29 Anion Gap 9 BUN 12 Creatinine 0.74 Est GFR ( Amer) > 60 Est GFR (Non-Af Amer) > 60 Glucose 101 Calcium 7.9 L Blood Type A POSITIVE Antibody Screen NEGATIVE 02/18/17 02/18/17 02/18/17 13:20 15:52 21:57 CK-MB (CK-2) 1.93 2.55 Troponin I 0.037 0.021 0.056 02/19/17 04:08 CK-MB (CK-2) 2.41 Troponin I 0.060 Impressions: Chest X-Ray 02/18/17 09:33 IMPRESSION: STABLE CHRONIC CHANGES. BORDERLINE CARDIOMEGALY. LINEAR ATELECTASIS/SCARRING. NO ACUTE RADIOGRAPHIC FINDING IN THE CHEST. Chest/Abdomen CTA 02/21/17 00:00 IMPRESSION: No CT angio evidence of acute pulmonary emboli. Fluoroscopy 02/24/17 00:00 IMPRESSION: IMAGE(S) OBTAINED DURING PROCEDURE. Shoulder X-Ray 02/24/17 00:00 IMPRESSION: IMAGE(S) OBTAINED DURING PROCEDURE. Guidance Fluoroscopy 02/27/17 00:00 IMPRESSION: Please see combined report for performance of procedure and radiologic supervision and interpretation. Interventional Vascular Procedure 02/27/17 00:00 IMPRESSION: Please see combined report for performance of procedure and radiologic supervision and interpretation. PICC Line Insertion 02/27/17 00:00 IMPRESSION: SUCCESSFUL PLACEMENT OF A 5 FR dual LUMEN 39 CM PICC IN THE basilic VEIN. Assessment & Plan - Diagnosis (1) Anemia Qualifiers: Anemia type: other cause Is this a current diagnosis for this admission?: YesPlan: Patient's hgb is 7.8 today. She received only one unit of blood yesterday before IV line was lost. Will transfused second unit today (2) Chest wall pain Is this a current diagnosis for this admission?: YesPlan: Secondary to fall and right humeral head fracture. She is post op day #2 right shoulder hemiarthroplasty (3) Dementia Is this a current diagnosis for this admission?: Yes (4) Humeral head fracture Qualifiers: Encounter type: subsequent encounter Laterality: right Is this a current diagnosis for this admission?: YesPlan: post op day #2 management per ortho. OOB with PT (5) Hypertension Is this a current diagnosis for this admission?: YesPlan: She is presently normotensive (6) Hypothyroid Qualifiers: Hypothyroidism type: acquired Qualified Code(s): E03.9 - Hypothyroidism, unspecified Is this a current diagnosis for this admission?: YesPlan: Continue synthroid (7) Shortness of breath Is this a current diagnosis for this admission?: YesPlan: Secondary to deconditioning, anemia and fluid volume overload (8) Excess fluid volume Is this a current diagnosis for this admission?: YesPlan: Continue diuresis - Time Time Spent with patient: 25-34 minutes Critical Time spent with patient: 15-24 minutes Medications reviewed and adjusted accordingly: Yes Anticipated discharge: Home with Homehealth - Inpatient Certification Based on my medical assessment, after consideration of the patient's comorbidities, presenting symptoms, or acuity I expect that the services needed warrant INPATIENT care.: Yes
[2017-02-27] MEDS: SERTRALINE HCL 50 MG TABLET PO SCH (17:50)
[2017-02-27 20:23] LABS: ABSOLUTE EOSINOPHILS # (AUTO) 0.1 10^3/uL (0.0-0.6); ABSOLUTE MONOCYTES (AUTO) 0.6 10^3/uL (0.1-1.4); ABSOLUTE NEUT (AUTO) 6.8 10^3/uL (1.7-8.2); BASOPHILS % (AUTO) 0.3 % (0-2); EOSINOPHILS % (AUTO) 0.6 % (0-6); HEMATOCRIT 25.8 % (36.0-47.0); HEMOGLOBIN 8.6 g/dL (12.0-15.5); LYMPHOCYTES % (AUTO) 11.7 % (13-45); MEAN CORPUSCULAR HEMOGLOBIN 32.1 pg (27.0-33.4); MEAN CORPUSCULAR HGB CONC 33.3 g/dL (32.0-36.0); MEAN CORPUSCULAR VOLUME 96 fl (80-97); MONOCYTES % (AUTO) 7.6 % (3-13); RED BLOOD COUNT 2.68 10^6/uL (3.72-5.28); SEGMENTED NEUTROPHILS % (AUTO) 79.8 % (42-78); WHITE BLOOD COUNT 8.5 10^3/uL (4.0-10.5)
[2017-02-27] MEDS: ATORVASTATIN CALCIUM 10 MG TABLET PO SCH (22:21)
[2017-02-27] MEDS: MEMANTINE HCL 10 MG TABLET PO SCH (22:22)
[2017-02-28] MEDS: LANSOPRAZOLE 30 MG TAB.RAP.DR PO SCH (05:20)
[2017-02-28] MEDS: BUPROPION HCL 100 MG TABLET PO SCH ×2 (05:20→13:39)
[2017-02-28] MEDS: GABAPENTIN 100 MG CAPSULE PO SCH ×2 (05:20→13:39)
[2017-02-28] MEDS: LEVOTHYROXINE SODIUM 0.05 MG TABLET PO SCH (05:20)
--- NOTE | 2017-02-28 07:01 | PDOC PROGRESS REPORT ---
Subjective Progress Note for:: 02/28/17 Subjective:: Patient more comfortable this morning Physical Exam Vital Signs: Temp Pulse Resp BP Pulse Ox 37.2 C 75 20 151/41 H 97 02/28/17 03:25 02/28/17 03:25 02/28/17 03:25 02/28/17 03:25 02/28/17 03:25 Intake & Output 02/27/17 02/28/17 03/01/17 06:59 06:59 06:59 Intake Total 500 950 Output Total 2425 1150 Balance -1925 -200 Weight 81.1 kg 80.4 kg General appearance: PRESENT: no acute distress Respiratory exam: PRESENT: unlabored Cardiovascular exam: PRESENT: RRR Pulses: PRESENT: normal radial pulses Extremities exam: PRESENT: other - Postoperative right radial nerve palsy. EDC has recovered to 3 out of 5 Neurological exam: PRESENT: alert, awake Skin exam: PRESENT: dry, intact, warm. ABSENT: cyanosis, rash Results Laboratory Results: 02/27/17 20:05 02/27/17 07:18 02/26/17 02/27/17 02/27/17 10:20 07:18 07:18 WBC 8.6 RBC 2.43 L Hgb 7.8 L Hct 24.1 L MCV 99 H MCH 32.0 MCHC 32.2 RDW 13.9 Plt Count 205 Seg Neutrophils % 81.0 H Lymphocytes % 9.9 L Monocytes % 8.1 Eosinophils % 0.8 Basophils % 0.2 Absolute Neutrophils 6.9 Absolute Lymphocytes 0.9 Absolute Monocytes 0.7 Absolute Eosinophils 0.1 Absolute Basophils 0.0 Sodium 142.3 Potassium 3.7 Chloride 104 Carbon Dioxide 29 Anion Gap 9 BUN 12 Creatinine 0.74 Est GFR ( Amer) > 60 Est GFR (Non-Af Amer) > 60 Glucose 101 Calcium 7.9 L Blood Type A POSITIVE Antibody Screen NEGATIVE 02/27/17 20:05 WBC 8.5 RBC 2.68 L Hgb 8.6 L Hct 25.8 L MCV 96 MCH 32.1 MCHC 33.3 RDW 16.0 H Plt Count 212 Seg Neutrophils % 79.8 H Lymphocytes % 11.7 L Monocytes % 7.6 Eosinophils % 0.6 Basophils % 0.3 Absolute Neutrophils 6.8 Absolute Lymphocytes 1.0 Absolute Monocytes 0.6 Absolute Eosinophils 0.1 Absolute Basophils 0.0 Sodium Potassium Chloride Carbon Dioxide Anion Gap BUN Creatinine Est GFR ( Amer) Est GFR (Non-Af Amer) Glucose Calcium Blood Type Antibody Screen 02/18/17 02/18/17 02/18/17 13:20 15:52 21:57 CK-MB (CK-2) 1.93 2.55 Troponin I 0.037 0.021 0.056 02/19/17 04:08 CK-MB (CK-2) 2.41 Troponin I 0.060 Impressions: Chest X-Ray 02/18/17 09:33 IMPRESSION: STABLE CHRONIC CHANGES. BORDERLINE CARDIOMEGALY. LINEAR ATELECTASIS/SCARRING. NO ACUTE RADIOGRAPHIC FINDING IN THE CHEST. Chest/Abdomen CTA 02/21/17 00:00 IMPRESSION: No CT angio evidence of acute pulmonary emboli. Fluoroscopy 02/24/17 00:00 IMPRESSION: IMAGE(S) OBTAINED DURING PROCEDURE. Shoulder X-Ray 02/24/17 00:00 IMPRESSION: IMAGE(S) OBTAINED DURING PROCEDURE. Guidance Fluoroscopy 02/27/17 00:00 IMPRESSION: Please see combined report for performance of procedure and radiologic supervision and interpretation. Interventional Vascular Procedure 02/27/17 00:00 IMPRESSION: Please see combined report for performance of procedure and radiologic supervision and interpretation. PICC Line Insertion 02/27/17 00:00 IMPRESSION: SUCCESSFUL PLACEMENT OF A 5 FR dual LUMEN 39 CM PICC IN THE basilic VEIN. Status: Imported from PACS Assessment & Plan - Diagnosis (1) Humeral head fracture Qualifiers: Encounter type: subsequent encounter Laterality: right Is this a current diagnosis for this admission?: YesPlan: 81-year-old white female who is now postop day 2 from right humeral hemiarthroplasty complicated by postoperative radial nerve palsy which seems to be recovering. Shoulder wound is clean dry and intact. - Time Time Spent with patient: 15-24 minutes Anticipated discharge: SNF Within: when bed available
[2017-02-28] MEDS: ENOXAPARIN SODIUM INJ 40 MG/0.4 ML DISP.SYRIN SUBCUT SCH (09:34)
[2017-02-28] MEDS: FUROSEMIDE INJ/PF 40 MG/4 ML SDV IV SCH (09:34)
[2017-02-28] MEDS: METOPROLOL TARTRATE 50 MG TABLET PO SCH (09:35)
[2017-02-28] MEDS: ASPIRIN 325 MG TABLET PO SCH (09:35)
[2017-02-28] MEDS: MULTIVITAMIN TABLET PO SCH (09:35)
[2017-02-28] MEDS: POTASSIUM CHLORIDE 10 MEQ TABLET.SA PO SCH (09:35)
[2017-02-28] MEDS: ISOSORBIDE MONONITRATE 30 MG TAB.ER.24H PO SCH (09:35)
[2017-02-28] MEDS: FERROUS SULFATE 325 MG TABLET PO SCH (09:35)
[2017-02-28] MEDS: DOCUSATE SODIUM 100 MG CAPSULE PO SCH (09:35)
--- NOTE | 2017-02-28 09:47 | PDOC TRANSFER SUMMARY ---
General - Admit/Disc Date/PCP Admission Date/Primary Care Provider: 02/18/17 12:49 ITALO PALMER, Discharge Date: 02/28/17 - Discharge Diagnosis (1) Anemia Is this a current diagnosis for this admission?: YesSummary: Patient required 2 units of packed red blood cells post operatively (2) Humeral head fracture Is this a current diagnosis for this admission?: YesSummary: Status post right shoulder hemiarthroplasty on 02/24 (3) Dementia Is this a current diagnosis for this admission?: YesSummary: Stable (4) Injury of right radial nerve Is this a current diagnosis for this admission?: YesSummary: Patient developed right radial nerve palsy post operative. Will need continued OT for functional improvement (5) Hypertension Is this a current diagnosis for this admission?: YesSummary: Continue current medications (6) Hypothyroid Is this a current diagnosis for this admission?: YesSummary: Continue synthroid (7) Shortness of breath Is this a current diagnosis for this admission?: YesSummary: Resolved likely secondary to anemia, fluid volume overload (8) Excess fluid volume Is this a current diagnosis for this admission?: Yes (9) Chest wall pain Is this a current diagnosis for this admission?: YesSummary: Resolved - Additional Information Resuscitation Status: Full Code Discharge Diet: Cardiac Discharge Activity: Activity As Tolerated, Balance Activity w/Rest Home Medications: Acetaminophen [Tylenol 325 mg Tablet] 650 mg PO Q4HP PRN 09/07/16 Aspirin [Aspirin 325 mg Tablet] 325 mg PO DAILY 09/07/16 Atorvastatin Calcium [Lipitor 10 mg Tablet] 10 mg PO QHS 09/07/16 Bupropion HCl [Wellbutrin 100 mg Tablet] 100 mg PO Q8 09/07/16 Docusate Sodium [Colace 100 mg Capsule] 100 mg PO BID 09/07/16 Ferrous Sulfate [Feosol 325 mg Tablet] 325 mg PO BID 09/07/16 Fluticasone Propionate [Flonase Nasal [place] 50 Mcg/[place] 16 gm] 1 spray NAREB DAILY 09/07/16 Furosemide [Lasix 40 mg Tablet] 40 mg PO BID 09/07/16 Gabapentin [Neurontin 100 mg Capsule] 100 mg PO Q8 09/07/16 Isosorbide Mononitrate [Isosorbide Mononitrate ER] 30 mg PO DAILY 09/07/16 Levothyroxine Sodium [Synthroid] 50 mcg PO QAM 09/07/16 Loratadine [Claritin 10 mg Tablet] 10 mg PO DAILY 09/07/16 Memantine HCl [Namenda] 5 mg PO QHS 09/07/16 Metoprolol Tartrate [Lopressor 50 mg Tablet] 50 mg PO Q12 09/07/16 Omeprazole 40 mg PO QAM 09/07/16 Potassium Chloride [Klor-Con Sprinkle] 10 meq PO BID 09/07/16 Sertraline HCl [Zoloft 50 mg Tablet] 50 mg PO QPM 09/07/16 Albuterol Sulfate [Ventolin HFA MDI 18 GM] 2 puff IH Q4HP PRN 02/18/17 Ibuprofen [Motrin 600 mg Tablet] 600 mg PO Q8 02/18/17 Loperamide HCl [Imodium 2 mg Capsule] 2 mg PO DAILYP PRN 02/18/17 Multivitamin [Tab-A-Kali (Multiple Vitamin) Tablet] 1 tab PO DAILY 02/18/17 Acetaminophen [Tylenol 325 mg Tablet] 650 mg PO Q4HP PRN tablet 02/28/17 Hydromorphone HCl [Dilaudid 2 mg Tablet] 2 mg PO Q4HP PRN #18 tablet 02/28/17 History of Present Illness Admission Date/PCP: 02/18/17 12:49 ITALO PALMER, History of Present Illness: Patient coming in for evaluation of chest pain patient was recently incarcerated general for orthopedic surgery of or right shoulder when she had complications due to anesthesia of the surgery was halted and patient remained intubated for proximal and 24 hours and placed in ICU. Patient states that she did have a heart attack during this time however was discharged home. Patient now at 8:00 this morning awoke with chest pressure patient was brought to the ER for further evaluation. According to fdc notes patient was giving her blood pressure medication Imdur and metoprolol. Patient also was given a breathing treatment which normally these are chest pressure. Patient was given 2 nitroglycerin tablets with no relief of her pain. Patient states pain still approximately 3 out of 5 nonradiating worse with deep breath and palpation. Hospital Course Hospital Course: Patient was admitted to the emergency room with complaints of chest pain or shortness of breath. She was admitted to Dr. Salmon from the service on telemetry. She underwent Cardiolite stress test which was negative. She history is a recent attempt at right shoulder hemiarthroplasty after a fall with right humerus fracture. She had complications during anesthesia and surgery was aborted patient was cleared by cardiology for surgery. Dr. Vizcarra saw the patient in consult for orthopedics. On 02/24/2017, patient was taken to the operative room to undergo right shoulder hemiarthroplasty. She tolerated the procedure well and was taken to IMCU in stable condition. Following day she started to have increasing shortness of breath as well as confusion. She was diuresed with improvement of her shortness of breath. She did have hemoglobin of 7.3. She was transfused 2 units of packed red blood cells. She was noted to have right wrist weakness with flexion and extension postoperatively. Orthopedics patient feels this is a radial nerve palsy secondary to complications from the surgery. Patient did receive PT and OT for mobilization. She is now ambulating with the assistance of a 1 armed walker. Her confusion has improved since surgery. Today she has a better Premier she is ready for discharge for continued rehab. Physical Exam Vital Signs: Temp Pulse Resp BP Pulse Ox 98.8 F 77 18 150/53 H 96 02/28/17 08:00 02/28/17 08:00 02/28/17 08:00 02/28/17 08:00 02/28/17 08:00 Intake & Output 02/27/17 02/28/17 03/01/17 06:59 06:59 06:59 Intake Total 500 990 Output Total 2425 1150 Balance -1925 -160 Weight 81.1 kg 80.4 kg General appearance: PRESENT: no acute distress, obese, well-developed, well- nourished Head exam: PRESENT: atraumatic, normocephalic Eye exam: PRESENT: conjunctiva pink, EOMI, PERRLA. ABSENT: scleral icterus Ear exam: PRESENT: normal external ear exam Mouth exam: PRESENT: moist, tongue midline Neck exam: ABSENT: carotid bruit, JVD, lymphadenopathy, thyromegaly Respiratory exam: PRESENT: clear to auscultation maura, decreased breath sounds. ABSENT: rales, rhonchi, wheezes Cardiovascular exam: PRESENT: RRR. ABSENT: diastolic murmur, rubs, systolic murmur Pulses: PRESENT: normal dorsalis pedis pul Vascular exam: PRESENT: normal capillary refill GI/Abdominal exam: PRESENT: normal bowel sounds, soft. ABSENT: distended, guarding, mass, organolmegaly, rebound, tenderness Rectal exam: PRESENT: deferred Extremities exam: PRESENT: tenderness - right shoulder incision, remains in, other Musculoskeletal exam: PRESENT: ambulatory, tenderness, other - right shoulder pain at incision. Right wrist weakness with flexion and extension Neurological exam: PRESENT: alert, awake, oriented to person, oriented to place , oriented to time, oriented to situation, CN II-XII grossly intact, other - confused at times but improved over the last 3 days. ABSENT: motor sensory deficit Psychiatric exam: PRESENT: appropriate affect, normal mood. ABSENT: homicidal ideation, suicidal ideation Skin exam: PRESENT: dry, intact, warm. ABSENT: cyanosis, rash Results Laboratory Results: 02/27/17 20:05 02/27/17 07:18 02/26/17 02/27/17 10:20 20:05 WBC 8.5 RBC 2.68 L Hgb 8.6 L Hct 25.8 L MCV 96 MCH 32.1 MCHC 33.3 RDW 16.0 H Plt Count 212 Seg Neutrophils % 79.8 H Lymphocytes % 11.7 L Monocytes % 7.6 Eosinophils % 0.6 Basophils % 0.3 Absolute Neutrophils 6.8 Absolute Lymphocytes 1.0 Absolute Monocytes 0.6 Absolute Eosinophils 0.1 Absolute Basophils 0.0 Blood Type A POSITIVE Antibody Screen NEGATIVE 02/18/17 02/18/17 02/18/17 13:20 15:52 21:57 CK-MB (CK-2) 1.93 2.55 Troponin I 0.037 0.021 0.056 02/19/17 04:08 CK-MB (CK-2) 2.41 Troponin I 0.060 Impressions: Chest X-Ray 02/18/17 09:33 IMPRESSION: STABLE CHRONIC CHANGES. BORDERLINE CARDIOMEGALY. LINEAR ATELECTASIS/SCARRING. NO ACUTE RADIOGRAPHIC FINDING IN THE CHEST. Chest/Abdomen CTA 02/21/17 00:00 IMPRESSION: No CT angio evidence of acute pulmonary emboli. Fluoroscopy 02/24/17 00:00 IMPRESSION: IMAGE(S) OBTAINED DURING PROCEDURE. Shoulder X-Ray 02/24/17 00:00 IMPRESSION: IMAGE(S) OBTAINED DURING PROCEDURE. Guidance Fluoroscopy 02/27/17 00:00 IMPRESSION: Please see combined report for performance of procedure and radiologic supervision and interpretation. Interventional Vascular Procedure 02/27/17 00:00 IMPRESSION: Please see combined report for performance of procedure and radiologic supervision and interpretation. PICC Line Insertion 02/27/17 00:00 IMPRESSION: SUCCESSFUL PLACEMENT OF A 5 FR dual LUMEN 39 CM PICC IN THE basilic VEIN. Transfer Plan - Time Spent with Patient Time spent with patient: Less than 30 Minutes Qualifiers PATEINT BEING DISCHARGED WITH ANY OF THE FOLLOWING DIAGNOSIS?: No Plan Discharge Plan: Transfer to [facility] Time Spent: Less than 30 Minutes
[2017-02-28 11:17] VITALS: BP 134/76
--- NOTE | 2017-02-28 12:07 | Operative Report ---
Operative Report DATE OF SURGERY: 02/24/17 PREOPERATIVE DIAGNOSIS: Right comminuted proximal humerus fracture OPERATION: Right proximal humeral hemiarthroplasty SURGEON: CHANEL NDIAYE ANESTHESIA: GA COMPLICATIONS: Humerus fracture ESTIMATED BLOOD LOSS: 200 PROCEDURE: Patient in a beachchair position on the operating table the right upper extremity and forequarter prepped and draped in a sterile fashion. A standard pectoral approach to the right proximal humerus is performed. This was gained to the humeral canal in a series of cylindrical broaches were used to widen the opening. Once the 10 mm broach is seated it becomes clear that there is a fracture of the humerus at the junction middle and distal thirds. Fluoroscopy was brought in to assess the fracture which has a large oblique or potentially spiral component. Incision is extended distally and the fracture is identified. The nerve stimulator was used to identify the radial nerve and remove it from the field. A cerclage cable was then placed around the fracture to reduce it and a 200 mm x 8 mm Bolt humeral stem is cemented in place. The cement is restricted the proximal third humerus to keep from the fracture site. 144 mm hemispherical's head was then impacted into the trunnion. Irrigated and closed with interrupted Vicryl followed by anastacia. A shoulder abduction pillow was applied and the patient's return to the PACU in satisfactory condition.
== END 2017-02-28 16:56 | DRG 982 ==
LOC: ER 09:30 → EH 12:03 → UNDOADMIN 12:03 → EH 12:49 → 3W 14:33
PROVIDERS: ADMIT Internal Medicine; ATTEND Internal Medicine
PROC: 0RRJ0J6 Replacement of Right Shoulder Joint with Synthetic Substitute, Humeral Surface, Open Approach (ICD-10-PCS; principal; 2017-02-24 08:45)
PROC: 30233N1 Transfusion of Nonautologous Red Blood Cells into Peripheral Vein, Percutaneous Approach (ICD-10-PCS; 2017-02-26)
PROC: 30233N1 Transfusion of Nonautologous Red Blood Cells into Peripheral Vein, Percutaneous Approach (ICD-10-PCS; 2017-02-27)
PROC: 02HV33Z Insertion of Infusion Device into Superior Vena Cava, Percutaneous Approach (ICD-10-PCS; 2017-02-27)
PROC: B548ZZA Ultrasonography of Superior Vena Cava, Guidance (ICD-10-PCS; 2017-02-27)
PROC: B5181ZA Fluoroscopy of Superior Vena Cava using Low Osmolar Contrast, Guidance (ICD-10-PCS; 2017-02-27)
DX: R07.89 Other chest pain (principal); S42.201A Unspecified fracture of upper end of right humerus, initial encounter for closed fracture; I48.0 Paroxysmal atrial fibrillation; D64.9 Anemia, unspecified; F03.90 Unspecified dementia, unspecified severity, without behavioral disturbance, psychotic disturbance, mood disturbance, and anxiety; Z66 Do not resuscitate; G56.31 Lesion of radial nerve, right upper limb; I10 Essential (primary) hypertension; E03.9 Hypothyroidism, unspecified; E78.5 Hyperlipidemia, unspecified; K21.9 Gastro-esophageal reflux disease without esophagitis; I25.10 Atherosclerotic heart disease of native coronary artery without angina pectoris; F41.9 Anxiety disorder, unspecified; F32.9 Major depressive disorder, single episode, unspecified; Z79.82 Long term (current) use of aspirin; Z79.899 Other long term (current) drug therapy; Z96.612 Presence of left artificial shoulder joint; Z95.2 Presence of prosthetic heart valve; Z88.8 Allergy status to other drugs, medicaments and biological substances
CPT/HCPCS: 01638; 36415; 36430; 36569; 51701; 71010; 71275; 76937; 77001; 78452; 80048; 80053; 81001; 82550; 82553; 83690; 83735; 84484; 85025; 85027; 85610; 85730; 86850; 86900; 86901; 86920; 88304; 88311; 93005; 93010; 93017; 93306; 96361; 96374; 99285; A9500; C9290; G8978-GP; G8979-GP; J0330; J0690; J1100; J1170; J1642; J1650; J1741; J1940; J2250; J2405; J2704; J2785; J3010; J3370; J3480; J3490; J7030; J7040; J7060; J7120; L3650; P9016; Q9969

== ENCOUNTER 2017-08-04 19:24 | Emergency (ER) | payer MEDICARE, OTHER ==
--- NOTE | 2017-08-04 20:09 | ER Document Report ---
ED General - General Chief Complaint: Altered Mental Status Stated Complaint: ALTERED MENTAL STATUS Time Seen by Provider: 08/04/17 20:01 Mode of Arrival: Ambulatory Information source: Patient Notes: 81 years old female with early this morning around 5:00 was switching off the lights when she came back to the bed tripped on something hit her head on the wall as well as dressing and came down on the floor. Did not think much of it went to sleep woke up noted some swelling over the right forehead periorbital region and pain over the right hip therefore present to the ED. There were no complete loss of consciousness. Currently have headache but no focal weakness numbness tingling sensation. TRAVEL OUTSIDE OF THE [place] IN LAST 30 DAYS: No - Related Data Allergies/Adverse Reactions: morphine [Morphine] Adverse Reaction (Verified 02/18/17 09:58) oxycodone [Oxycodone] Adverse Reaction (Verified 02/18/17 09:58) Past Medical History - Social History Smoking Status: Unknown if Ever Smoked Chew tobacco use (# tins/day): No Frequency of alcohol use: None Drug Abuse: None Family History: Reviewed & Not Pertinent Patient has suicidal ideation: No Patient has homicidal ideation: No - Past Medical History Cardiac Medical History: Reports: Hx Atrial Fibrillation, Hx Hypercholesterolemia, Hx Hypertension, Hx Heart Murmur Denies: Hx Congestive Heart Failure, Hx Coronary Artery Disease, Hx Heart Attack, Hx Peripheral Vascular Disease, Hx Pulmonary Embolism Pulmonary Medical History: Reports: Hx COPD Denies: Hx Asthma, Hx Bronchitis, Hx Pneumonia, Hx Respiratory Failure, Hx Sleep Apnea, Hx Tuberculosis Neurological Medical History: Denies: Hx Cerebrovascular Accident - DEMENTIA WITH DEPRESSION, Hx Seizures Endocrine Medical History: Reports: Hx Diabetes Mellitus Type 2, Hx Hypothyroidism. Denies: Hx Graves' Disease, Hx Hyperthyroidism Renal/ Medical History: Denies: Hx End Stage Renal Disease, Hx Kidney Stones, Hx Ovarian Cysts, Hx Peritoneal Dialysis, Hx Pelvic Inflammatory Disease Malignancy Medical History: Denies: Hx Breast Cancer, Hx Cervical Cancer, Hx Leukemia, Hx Lung Cancer, Hx Ovarian Cancer GI Medical History: Denies: Hx Crohn's Disease, Hx Gastroesophageal Reflux Disease, Hx Hepatitis, Hx Irritable Bowel, Hx Liver Failure, Hx Pancreatitis, Hx Ulcer. Comment Only: Hx Hiatal Hernia - diverticulitis Musculoskeltal Medical History: Reports Hx Arthritis, Denies Hx Fibromyalgia, Denies Hx Multiple Sclerosis, Denies Hx Muscular Dystrophy Psychiatric Medical History: Reports: Hx Dementia, Hx Depression Denies: Hx Bipolar Disorder, Hx Post Traumatic Stress Disorder, Hx Schizophrenia Traumatic Medical History: Denies: Hx Fractures Infectious Medical History: Denies: Hx Hepatitis, Hx HIV Past Surgical History: Reports: Hx Cardiac Surgery - Bio-prosthetic aortic valve replacement, Hx Orthopedic Surgery - L shoulder replacement, left hip, Hx Tubal Ligation, Hx Valve Replacement, Other - Right mastoid surgery for chronic mastoiditis. Denies: Hx Appendectomy, Hx Bowel Surgery, Hx Section, Hx Cholecystectomy, Hx Colostomy, Hx Coronary Artery Bypass Graft, Hx Gastric Bypass Surgery, Hx Herniorrhaphy, Hx Hysterectomy, Hx Mastectomy, Hx Open Heart Surgery, Hx Pacemaker, Hx Tonsillectomy - Immunizations Hx Diphtheria, Pertussis, Tetanus Vaccination: Yes Hx Pneumococcal Vaccination: 02/13/12 Review of Systems - Review of Systems Notes: REVIEW OF SYSTEMS: CONSTITUTIONAL : Denies fever, chills, or sweats. Denies recent illness. EENT: Denies eye, ear, throat, or mouth pain or symptoms. Denies nasal or sinus congestion or discharge. Denies throat, tongue, or mouth swelling or difficulty swallowing. CARDIOVASCULAR: Denies chest pain. Denies palpitations or racing or irregular heart beat. Denies ankle edema. RESPIRATORY: Denies cough, cold, or chest congestion. Denies shortness of breath, difficulty breathing, or wheezing. GASTROINTESTINAL: Denies abdominal pain or distention. Denies nausea, vomiting , or diarrhea. Denies blood in vomitus, stools, or per rectum. Denies black, tarry stools. Denies constipation. GENITOURINARY: Denies difficulty urinating, painful urination, burning, frequency, blood in urine, or discharge. FEMALE GENITOURINARY: Denies vaginal bleeding, heavy or abnormal periods, irregular periods. Denies vaginal discharge or odor. MUSCULOSKELETAL: As per history of complain, had a fracture on the right arm long time ago SKIN: Denies rash, lesions or sores. HEMATOLOGIC : Denies easy bruising or bleeding. LYMPHATIC: Denies swollen, enlarged glands. NEUROLOGICAL: Denies confusion or altered mental status. Denies passing out or loss of consciousness. Denies dizziness or lightheadedness. Denies Denies weakness or paralysis or loss of use of either side. Denies problems with gait or speech. Denies sensory loss, numbness, or tingling. Denies seizures. PSYCHIATRIC: Denies anxiety or stress. Denies depression, suicidal ideation, or homicidal ideation. ALL OTHER SYSTEMS REVIEWED AND NEGATIVE. PHYSICAL EXAMINATION: GENERAL: Morbidly obese, not in any major distress HEAD: Right forehead bluish black discoloration of the skin noted, normocephalic. EYES: Periorbital contusion ,pupils equal round and reactive to light, extraocular movements intact, conjunctiva are normal. ENT: Nares patent, oropharynx clear without exudates. Moist mucous membranes. NECK: Normal range of motion, supple without lymphadenopathy LUNGS: Breath sounds clear to auscultation bilaterally and equal. No wheezes rales or rhonchi. HEART: Regular rate and rhythm without murmurs ABDOMEN: Soft, nontender, nondistended abdomen. No guarding, no rebound. No masses appreciated. Female : deferred Musculoskeletal: Right shoulder has surgical scar, right forearm splinted due to old fracture. Left upper limb normal range of motion, right hip with slight tenderness but able to flex extend and abduct at that, right lower limb normal range of motion. NEUROLOGICAL: Cranial nerves grossly intact. Normal speech, normal gait. Normal sensory, motor exams PSYCH: Normal mood, normal affect. SKIN: Warm, Dry, normal turgor, no rashes or lesions noted. Dictation was performed using [employer] voice recognition software Physical Exam - Vital signs Vitals: Resp Pulse Ox 18 96 08/04/17 19:30 08/04/17 19:30 Course - Re-evaluation Re-evalutation: 08/04/17 21:48 CT of the brain, facial bones came back negative for any fractures. Hip x-ray was negative for any fractures. Blood work came back normal. This was communicated to the patient and discharged home. - Vital Signs Vital signs: Temp Pulse Resp BP Pulse Ox 98.3 F 15 161/48 H 97 08/04/17 20:01 08/04/17 21:27 08/04/17 21:27 08/04/17 21:27 - Laboratory Result Diagrams: 08/04/17 20:35 08/04/17 20:35 Laboratory results interpreted by me: 08/04/17 08/04/17 20:35 20:35 RBC 3.40 L Hgb 11.0 L Hct 33.3 L MCV 98 H Sodium 147.1 H Chloride 108 H Est GFR (Non-Af Amer) 59 L Discharge - Discharge Clinical Impression: Fall Qualifiers: Encounter type: initial encounter Qualified Code(s): W19.XXXA - Unspecified fall, initial encounter Forehead contusion Qualifiers: Encounter type: initial encounter Qualified Code(s): S00.83XA - Contusion of other part of head, initial encounter Periorbital contusion of right eye Qualifiers: Encounter type: initial encounter Qualified Code(s): S05.11XA - Contusion of eyeball and orbital tissues, right eye, initial encounter Condition: Fair Disposition: HOME, SELF-CARE Instructions: Head Injury Precautions ([facility])
[2017-08-04 20:46] LABS: ABSOLUTE BASOPHILS # (AUTO) 0.1 10^3/uL (0.0-0.2); ABSOLUTE EOSINOPHILS # (AUTO) 0.1 10^3/uL (0.0-0.6); ABSOLUTE LYMPHOCYTES (AUTO) 1.3 10^3/uL (0.5-4.7); ABSOLUTE MONOCYTES (AUTO) 0.4 10^3/uL (0.1-1.4); EOSINOPHILS % (AUTO) 1.6 % (0-6); HEMATOCRIT 33.3 % (36.0-47.0); HGB HCT DIFFERENCE -0.3; LYMPHOCYTES % (AUTO) 21.8 % (13-45); MEAN CORPUSCULAR HEMOGLOBIN 32.5 pg (27.0-33.4); MEAN CORPUSCULAR HGB CONC 33.1 g/dL (32.0-36.0); MEAN CORPUSCULAR VOLUME 98 fl (80-97); MONOCYTES % (AUTO) 7.4 % (3-13); RED CELL DISTRIBUTION WIDTH 13.6 % (11.5-14.0); SEGMENTED NEUTROPHILS % (AUTO) 68.2 % (42-78); WHITE BLOOD COUNT 5.9 10^3/uL (4.0-10.5)
--- NOTE | 2017-08-04 21:03 | RADIOLOGY REPORT (SQ) ---
EXAM DESCRIPTION: HIP RIGHT AP/LATERAL COMPLETED DATE/TIME: 08/04/2017 8:54 pm REASON FOR STUDY: Hip injury COMPARISON: None. NUMBER OF VIEWS: Two views. TECHNIQUE: AP pelvis and additional frog-leg view of the right hip. LIMITATIONS: None. FINDINGS: MINERALIZATION: Osteopenia. RIGHT HIP: No fracture or dislocation. No worrisome bone lesions. LEFT HIP: Prior internal fixation of intertrochanteric fracture. PUBIS AND ISCHIUM: No fracture. PELVIS: No fracture. SACRUM: No fracture or dislocation. No worrisome bone lesions. LOWER LUMBAR SPINE: Diffuse degenerative disc disease. SOFT TISSUES: No findings. OTHER: No other significant finding. IMPRESSION: No acute fracture. TECHNICAL DOCUMENTATION: JOB ID: [id number] [employer]- All Rights Reserved
[2017-08-04 21:07] LABS: ALANINE AMINOTRANSFERASE 19 U/L (9-52); ALKALINE PHOSPHATASE 104 U/L (38-126); ANION GAP 10 (5-19); ASPARTATE AMINO TRANSFERASE 19 U/L (14-36); BILIRUBIN,DIRECT 0.2 mg/dL (0.0-0.4); BILIRUBIN,TOTAL 0.2 mg/dL (0.2-1.3); BLOOD UREA NITROGEN 19 mg/dL (7-20); CALCIUM 9.7 mg/dL (8.4-10.2); CARBON DIOXIDE 29 mmol/L (22-30); CHLORIDE 108 mmol/L (98-107); CREATININE RESULT 0.92 mg/dL (0.52-1.25); GLUCOSE 104 mg/dL (75-110); POTASSIUM 4.1 mmol/L (3.6-5.0); SODIUM 147.1 mmol/L (137-145); TOTAL PROTEIN 6.7 g/dL (6.3-8.2)
--- NOTE | 2017-08-04 21:19 | RADIOLOGY REPORT (SQ) ---
EXAM DESCRIPTION: CT HEAD WITHOUT COMPLETED DATE/TIME: 08/04/2017 9:08 pm REASON FOR STUDY: Injury COMPARISON: 01/22/2017 TECHNIQUE: Axial images acquired through the brain without intravenous contrast. Images reviewed wi th bone, brain and subdural windows. Images stored on PACS. All CT scanners at this facility use dose modulation, iterative reconstruction, and/or weight based d osing when appropriate to reduce radiation dose to as low as reasonably achievable (ALARA). [facility]: Dose Right [facility]: CareDose [facility]: Dose Right [facility]: Teradose 4D [facility]: Smart [employer] RADIATION DOSE: CT Rad equipment meets quality standard of care and radiation dose reduction techniq ues were employed. CTDIvol: 64.3 mGy. DLP: 1163 mGy-cm.mGy. LIMITATIONS: None. FINDINGS: VENTRICLES: Prominent. CEREBRUM: No masses. No hemorrhage. No midline shift. Areas of low density in the white matter mos t likely due to chronic micro-vascular ischemic change. No evidence for acute infarction. CEREBELLUM: No masses. No hemorrhage. No alteration of density. No evidence for acute infarction. EXTRAAXIAL SPACES: Age-related involutional change. No fluid collections. No masses. ORBITS AND GLOBE: No intra- or extraconal masses. Normal contour of globe without masses. CALVARIUM: No fracture. PARANASAL SINUSES: No fluid or mucosal thickening. SOFT TISSUES: No mass or hematoma. OTHER: No other significant finding. IMPRESSION: CHRONIC CHANGES OF ATROPHY AND MICROVASCULAR ISCHEMIA. NO ACUTE PROCESS. EVIDENCE OF ACUTE STROKE: NO. TECHNICAL DOCUMENTATION: JOB ID: [id number] Quality ID # [id number]: Final reports with documentation of one or more dose reduction techniques (e.g., Au tomated exposure control, adjustment of the mA and/or kV according to patient size, use of iterative reconstruction technique) 2010 [employer]- All Rights Reserved
--- NOTE | 2017-08-04 21:20 | RADIOLOGY REPORT (SQ) ---
EXAM DESCRIPTION: CT FACIAL AREA WITHOUT COMPLETED DATE/TIME: 08/04/2017 9:08 pm REASON FOR STUDY: Injury COMPARISON: None. TECHNIQUE: Noncontrasted images through the facial bones and orbits windowed for bone and soft tissu e. Additional coronal and sagittal reconstructed images reviewed. All images stored on PACS. All CT scanners at this facility use dose modulation, iterative reconstruction, and/or weight based d osing when appropriate to reduce radiation dose to as low as reasonably achievable (ALARA). [facility]: Dose Right [facility]: CareDose [facility]: Dose Right [facility]: Teradose 4D [facility]: [employer] RADIATION DOSE: CT Rad equipment meets quality standard of care and radiation dose reduction techniq ues were employed. CTDIvol: 30.4 mGy. DLP: 627 mGy-cm. mGy. LIMITATIONS: None. FINDINGS: FACIAL BONES: No fracture or bone lesion. ORBITS: Intact. No fracture. Symmetric intact globes and retroorbital soft tissues. PARANASAL SINUSES: Clear. No significant mucosal thickening, mass or fluid. No nasal polyps. Maxill zoya sinus outlets are patent. SOFT TISSUES: No mass or edema. INFERIOR BRAIN: Limited view. No acute findings. OTHER: No other significant finding. IMPRESSION: NO ACUTE FINDINGS. TECHNICAL DOCUMENTATION: JOB ID: [id number] Quality ID # [id number]: Final reports with documentation of one or more dose reduction techniques (e.g., Au tomated exposure control, adjustment of the mA and/or kV according to patient size, use of iterative reconstruction technique) 2010 [employer]- All Rights Reserved
[2017-08-04 21:47] VITALS: BP 161/48
== END 2017-08-04 22:34 | disposition home or self-care (01) ==
LOC: ER 19:24
DX: S00.83XA Contusion of other part of head, initial encounter (principal); S05.11XA Contusion of eyeball and orbital tissues, right eye, initial encounter; W01.190A Fall on same level from slipping, tripping and stumbling with subsequent striking against furniture, initial encounter; Y92.003 Bedroom of unspecified non-institutional (private) residence as the place of occurrence of the external cause; I48.91 Unspecified atrial fibrillation; E78.00 Pure hypercholesterolemia, unspecified; I10 Essential (primary) hypertension; E11.9 Type 2 diabetes mellitus without complications; J44.9 Chronic obstructive pulmonary disease, unspecified; E03.9 Hypothyroidism, unspecified; Z95.2 Presence of prosthetic heart valve; Z88.6 Allergy status to analgesic agent; Z96.612 Presence of left artificial shoulder joint; Z96.642 Presence of left artificial hip joint
CPT/HCPCS: 36415; 70450; 70486; 80053; 85025; 99285

== ENCOUNTER 2017-08-30 08:22 | Emergency (ER) | payer MEDICARE, OTHER ==
[2017-08-30 10:00] LABS: ABSOLUTE LYMPHOCYTES (AUTO) 0.8 10^3/uL (0.5-4.7); ABSOLUTE MONOCYTES (AUTO) 0.8 10^3/uL (0.1-1.4); ABSOLUTE NEUT (AUTO) 6.9 10^3/uL (1.7-8.2); BASOPHILS % (AUTO) 0.2 % (0-2); EOSINOPHILS % (AUTO) 0.1 % (0-6); HEMATOCRIT 32.5 % (36.0-47.0); HEMOGLOBIN 10.9 g/dL (12.0-15.5); LYMPHOCYTES % (AUTO) 9.2 % (13-45); MEAN CORPUSCULAR HEMOGLOBIN 32.7 pg (27.0-33.4); MEAN CORPUSCULAR HGB CONC 33.6 g/dL (32.0-36.0); MEAN CORPUSCULAR VOLUME 97 fl (80-97); MONOCYTES % (AUTO) 9.7 % (3-13); PLATELET COUNT 166 10^3/uL (150-450); RED BLOOD COUNT 3.34 10^6/uL (3.72-5.28); RED CELL DISTRIBUTION WIDTH 13.1 % (11.5-14.0); SEGMENTED NEUTROPHILS % (AUTO) 80.8 % (42-78); TOTAL CELLS COUNTED % (AUTO) 100 %; WHITE BLOOD COUNT 8.6 10^3/uL (4.0-10.5)
[2017-08-30 10:14] LABS: AMORPHOUS SEDIMENT,URINE TRACE /HPF; APPEARANCE,URINE CLOUDY; BILIRUBIN,URINE NEGATIVE (NEGATIVE); COLOR,URINE AMBER; GLUCOSE, URINE NEGATIVE (NEGATIVE); KETONES,URINE NEGATIVE (NEGATIVE); LEUKOCYTE ESTERASE,URINE MODERATE (NEGATIVE); NITRITE,URINE NEGATIVE (NEGATIVE); PROTEIN,URINE 100 mg/dL (NEGATIVE); URINE SPECIFIC GRAVITY 1.014; UROBILINOGEN,URINE NEGATIVE mg/dL (<2.0)
[2017-08-30 10:17] LABS: ALANINE AMINOTRANSFERASE 21 U/L (9-52); ALBUMIN 3.9 g/dL (3.5-5.0); ALKALINE PHOSPHATASE 100 U/L (38-126); ANION GAP 9 (5-19); ASPARTATE AMINO TRANSFERASE 19 U/L (14-36); BILIRUBIN,DIRECT 0.2 mg/dL (0.0-0.4); BILIRUBIN,TOTAL 0.4 mg/dL (0.2-1.3); BLOOD UREA NITROGEN 18 mg/dL (7-20); CALCIUM 9.5 mg/dL (8.4-10.2); CARBON DIOXIDE 29 mmol/L (22-30); CHLORIDE 101 mmol/L (98-107); GLUCOSE 105 mg/dL (75-110); POTASSIUM 4.1 mmol/L (3.6-5.0); SODIUM 139.4 mmol/L (137-145); TOTAL PROTEIN 6.4 g/dL (6.3-8.2)
[2017-08-30] MEDS ORDERED: NITROFURANTOIN MONOHYD/M-CRYST 100 MG CAPSULE PO ONE (10:29)
--- NOTE | 2017-08-30 10:31 | ER Document Report ---
ED General - General Chief Complaint: Altered Mental Status Stated Complaint: FLANK PAIN Time Seen by Provider: 08/30/17 09:09 TRAVEL OUTSIDE OF THE [place] IN LAST 30 DAYS: No - HPI Patient complains to provider of: possible uti Onset: This morning - confused Quality of pain: Other - dysuria Associated symptoms: None Exacerbated by: Denies Relieved by: Denies - Related Data Allergies/Adverse Reactions: morphine [Morphine] Adverse Reaction (Verified 02/18/17 09:58) oxycodone [Oxycodone] Adverse Reaction (Verified 02/18/17 09:58) Past Medical History - General Information source: Patient, Relative - Social History Smoking Status: Never Smoker Chew tobacco use (# tins/day): No Drug Abuse: None Family History: Reviewed & Not Pertinent Patient has suicidal ideation: No Patient has homicidal ideation: No - Past Medical History Cardiac Medical History: Reports: Hx Atrial Fibrillation, Hx Hypercholesterolemia, Hx Hypertension, Hx Heart Murmur Denies: Hx Congestive Heart Failure, Hx Coronary Artery Disease, Hx Heart Attack, Hx Peripheral Vascular Disease, Hx Pulmonary Embolism Pulmonary Medical History: Reports: Hx COPD Denies: Hx Asthma, Hx Bronchitis, Hx Pneumonia, Hx Respiratory Failure, Hx Sleep Apnea, Hx Tuberculosis Neurological Medical History: Denies: Hx Cerebrovascular Accident - DEMENTIA WITH DEPRESSION, Hx Seizures Endocrine Medical History: Reports: Hx Diabetes Mellitus Type 2, Hx Hypothyroidism. Denies: Hx Graves' Disease, Hx Hyperthyroidism Renal/ Medical History: Denies: Hx End Stage Renal Disease, Hx Kidney Stones, Hx Ovarian Cysts, Hx Peritoneal Dialysis, Hx Pelvic Inflammatory Disease Malignancy Medical History: Denies: Hx Breast Cancer, Hx Cervical Cancer, Hx Leukemia, Hx Lung Cancer, Hx Ovarian Cancer GI Medical History: Denies: Hx Crohn's Disease, Hx Gastroesophageal Reflux Disease, Hx Hepatitis, Hx Irritable Bowel, Hx Liver Failure, Hx Pancreatitis, Hx Ulcer. Comment Only: Hx Hiatal Hernia - diverticulitis Musculoskeltal Medical History: Reports Hx Arthritis, Denies Hx Fibromyalgia, Denies Hx Multiple Sclerosis, Denies Hx Muscular Dystrophy Psychiatric Medical History: Reports: Hx Dementia, Hx Depression Denies: Hx Bipolar Disorder, Hx Post Traumatic Stress Disorder, Hx Schizophrenia Traumatic Medical History: Denies: Hx Fractures Infectious Medical History: Denies: Hx Hepatitis, Hx HIV Past Surgical History: Reports: Hx Cardiac Surgery - Bio-prosthetic aortic valve replacement, Hx Orthopedic Surgery - L shoulder replacement, left hip, Hx Tubal Ligation, Hx Valve Replacement, Other - Right mastoid surgery for chronic mastoiditis. Denies: Hx Appendectomy, Hx Bowel Surgery, Hx Section, Hx Cholecystectomy, Hx Colostomy, Hx Coronary Artery Bypass Graft, Hx Gastric Bypass Surgery, Hx Herniorrhaphy, Hx Hysterectomy, Hx Mastectomy, Hx Open Heart Surgery, Hx Pacemaker, Hx Tonsillectomy - Immunizations Hx Diphtheria, Pertussis, Tetanus Vaccination: Yes Hx Pneumococcal Vaccination: 02/13/12 Review of Systems - Review of Systems Constitutional: denies: Fever EENT: No symptoms reported Cardiovascular: No symptoms reported Respiratory: No symptoms reported Gastrointestinal: No symptoms reported Genitourinary: Burning, Dysuria, Frequency Musculoskeletal: Other - right wrist healing fracture(in splint) Skin: No symptoms reported Hematologic/Lymphatic: No symptoms reported Neurological/Psychological: Confusion Physical Exam - Vital signs Vitals: Temp Pulse Resp BP Pulse Ox 98.7 F 84 20 161/58 H 93 08/30/17 08:27 08/30/17 08:27 08/30/17 08:27 08/30/17 08:27 08/30/17 08:27 - General Notes: PHYSICAL EXAMINATION: GENERAL: Well-appearing, well-nourished and in no acute distress. HEAD: Atraumatic, normocephalic. EYES: Pupils equal round and reactive to light, extraocular movements intact, conjunctiva are normal. ENT: Nares patent, oropharynx clear without exudates. Mildly dry mucous membranes. NECK: Normal range of motion, supple without lymphadenopathy LUNGS: Breath sounds clear to auscultation bilaterally and equal. No wheezes rales or rhonchi. HEART: Regular rate and rhythm with murmur ABDOMEN: Soft, nontender, nondistended abdomen. No guarding, no rebound. No masses appreciated. Female : deferred Musculoskeletal: Normal range of motion, no pitting or edema. No cyanosis. Right wrist in splint. NEUROLOGICAL: Cranial nerves grossly intact. Normal speech. Normal sensory, motor exams. Patient is alert and oriented 3. She is slightly confused intermittently when he talk with her. PSYCH: Normal mood, normal affect. SKIN: Warm, Dry, normal turgor, no rashes or lesions noted. Course - Vital Signs Vital signs: Temp Pulse Resp BP Pulse Ox 98.7 F 84 18 161/58 H 92 08/30/17 08:27 08/30/17 08:27 08/30/17 08:44 08/30/17 08:27 08/30/17 08:37 - Laboratory Result Diagrams: 08/30/17 09:34 08/30/17 09:34 Laboratory results interpreted by me: 08/30/17 08/30/17 08/30/17 09:34 09:34 09:34 RBC 3.34 L Hgb 10.9 L Hct 32.5 L Seg Neutrophils % 80.8 H Lymphocytes % 9.2 L Est GFR ( Amer) 56 L Est GFR (Non-Af Amer) 46 L Urine Protein 100 H Ur Leukocyte Esterase MODERATE H Discharge - Discharge Clinical Impression: UTI (urinary tract infection) Condition: Stable Disposition: HOME-SNF (ED ONLY) Instructions: Nitrofurantoin ([facility]), Urinary Tract Infection ([facility]) Additional Instructions: Return to the emergency department if you have worsening of symptoms or any other concerns Prescriptions: Nitrofurantoin/Nitrofuran Mac [Macrobid 100 mg Capsule] 1 tab PO BID 10 Days # 20 capsule
[2017-08-30 12:08] VITALS: BP 115/47
== END 2017-08-30 12:08 ==
LOC: ER 08:22
DX: N39.0 Urinary tract infection, site not specified (principal); R41.82 Altered mental status, unspecified
CPT/HCPCS: 99285; 36415; 87086; 85025; 87088; 80053; 81001; 87186; A9270; J8499

== ENCOUNTER 2017-12-18 11:17 | Emergency (ER) | payer MEDICARE, OTHER ==
--- NOTE | 2017-12-18 11:52 | ER Document Report ---
ED Fall - General Chief Complaint: Fall Stated Complaint: FALL/HEAD INJURY Time Seen by Provider: 12/18/17 11:26 Notes: 82-year-old female patient coming from prison[facility]assisted living after a fall. States that she lost her balance and had a mechanical fall backwards. Hit her head on the bed frame. No loss of consciousness. Has contusion to the back of her head. No vomiting. No nausea. Some mild pain in her neck and upper thoracic spine. Denies any abdominal pain. Denies any other symptoms at this time TRAVEL OUTSIDE OF THE [place] IN LAST 30 DAYS: No - HPI Occurred: Just prior to arrival Where: [facility] Context: Lost balance Associated symptoms: None Location of injury/pain: Back, Head, Neck - Related data Allergies/Adverse Reactions: morphine [Morphine] Adverse Reaction (Verified 02/18/17 09:58) oxycodone [Oxycodone] Adverse Reaction (Verified 02/18/17 09:58) Past Medical History - General Information source: Patient - Social History Smoking Status: Never Smoker Cigarette use (# per day): No Frequency of alcohol use: None Drug Abuse: None Lives with: [facility] Family History: Reviewed & Not Pertinent - Past Medical History Cardiac Medical History: Reports: Hx Atrial Fibrillation, Hx Hypercholesterolemia, Hx Hypertension, Hx Heart Murmur Denies: Hx Congestive Heart Failure, Hx Coronary Artery Disease, Hx Heart Attack, Hx Peripheral Vascular Disease, Hx Pulmonary Embolism Pulmonary Medical History: Reports: Hx COPD Denies: Hx Asthma, Hx Bronchitis, Hx Pneumonia, Hx Respiratory Failure, Hx Sleep Apnea, Hx Tuberculosis Neurological Medical History: Denies: Hx Cerebrovascular Accident - DEMENTIA WITH DEPRESSION, Hx Seizures Endocrine Medical History: Reports: Hx Diabetes Mellitus Type 2, Hx Hypothyroidism. Denies: Hx Graves' Disease, Hx Hyperthyroidism Renal/ Medical History: Denies: Hx End Stage Renal Disease, Hx Kidney Stones, Hx Ovarian Cysts, Hx Peritoneal Dialysis, Hx Pelvic Inflammatory Disease Malignancy Medical History: Denies: Hx Breast Cancer, Hx Cervical Cancer, Hx Leukemia, Hx Lung Cancer, Hx Ovarian Cancer GI Medical History: Denies: Hx Crohn's Disease, Hx Gastroesophageal Reflux Disease, Hx Hepatitis, Hx Irritable Bowel, Hx Liver Failure, Hx Pancreatitis, Hx Ulcer. Comment Only: Hx Hiatal Hernia - diverticulitis Musculoskeltal Medical History: Reports Hx Arthritis, Denies Hx Fibromyalgia, Denies Hx Multiple Sclerosis, Denies Hx Muscular Dystrophy Psychiatric Medical History: Reports: Hx Dementia, Hx Depression Denies: Hx Bipolar Disorder, Hx Post Traumatic Stress Disorder, Hx Schizophrenia Traumatic Medical History: Denies: Hx Fractures Infectious Medical History: Denies: Hx Hepatitis, Hx HIV Past Surgical History: Reports: Hx Cardiac Surgery - Bio-prosthetic aortic valve replacement, Hx Orthopedic Surgery - L shoulder replacement, left hip, Hx Tubal Ligation, Hx Valve Replacement, Other - Right mastoid surgery for chronic mastoiditis. Denies: Hx Appendectomy, Hx Bowel Surgery, Hx Section, Hx Cholecystectomy, Hx Colostomy, Hx Coronary Artery Bypass Graft, Hx Gastric Bypass Surgery, Hx Herniorrhaphy, Hx Hysterectomy, Hx Mastectomy, Hx Open Heart Surgery, Hx Pacemaker, Hx Tonsillectomy - Immunizations Hx Diphtheria, Pertussis, Tetanus Vaccination: Yes Hx Pneumococcal Vaccination: 02/13/12 Review of Systems - Review of Systems Constitutional: denies: Fever, Malaise, Weakness EENT: denies: Double vision, Nose pain, Difficulty swallowing, Mouth pain Cardiovascular: denies: Chest pain, Palpitations, Syncope, Dizziness, Lightheaded Respiratory: denies: Cough, Hurts to breathe, Short of breath Gastrointestinal: denies: Abdominal pain, Diarrhea, Nausea, Vomiting Genitourinary: denies: Burning, Dysuria, Discharge Musculoskeletal: Back pain, Neck pain, Other - Head pain, head contusion Skin: No symptoms reported Hematologic/Lymphatic: Easy bleeding, Easy bruising. denies: Blood clots Neurological/Psychological: Headaches. denies: Weakness, Gait changes, Loss of power, Paralysis, Seizure, Lost consciousness Physical Exam - Vital signs Vitals: Temp Pulse Resp BP Pulse Ox 97.8 F 60 18 127/62 H 100 12/18/17 11:18 12/18/17 11:18 12/18/17 11:18 12/18/17 11:18 12/18/17 11:18 Interpretation: Normal - General General appearance: Appears well, Alert - HEENT Head: Normocephalic, Ecchymosis, Tenderness, Other - There is a large contusion on the occipital scalp. No active bleeding.. No: Yoder's sign, Open wounds, [place]'s eyes Eyes: Normal Pupils: PERRL Fundascopic: Normal Mucous membranes: Normal Neck: Supple, Other - Tenderness on the C7 midline.. No: Meningismus, Neck mass - Respiratory Respiratory status: No respiratory distress Chest status: Nontender Breath sounds: Normal Chest palpation: Normal - Cardiovascular Rhythm: Regular Heart sounds: Normal auscultation Murmur: No - Abdominal Inspection: Normal Distension: No distension Bowel sounds: Normal Tenderness: Nontender Organomegaly: No organomegaly - Back Back: Normal, Nontender, Tender. No: Deformity/step-off - Tenderness at about T10 midline. - Extremities General upper extremity: Normal inspection, Nontender, Normal color, Normal ROM , Normal temperature General lower extremity: Normal inspection, Nontender, Normal color, Normal ROM , Normal temperature, Normal weight bearing. No: Nimesh's sign - Neurological Neuro grossly intact: Yes Cognition: Normal Orientation: AAOx4 Jose Coma Scale Eye Opening: Spontaneous Jose Coma Scale Verbal: Oriented [place] Coma Scale Motor: Obeys Commands Jose Coma Scale Total: 15 Speech: Normal Motor strength normal: LUE, RUE, LLE, RLE Sensory: Normal - Psychological Associated symptoms: Normal affect, Normal mood - Skin Skin Temperature: Warm Skin Moisture: Dry Skin Color: Normal Course - Re-evaluation Re-evalutation: 12/18/17 12:[address] 12/18/17 11:26 IMPRESSION: CHRONIC DEGENERATIVE CHANGES. NO ACUTE FINDINGS. Head CT 12/18/17 11:26 IMPRESSION: MILD CHRONIC CHANGES OF ATROPHY AND MICROVASCULAR ISCHEMIA. NO ACUTE PROCESS. EVIDENCE OF ACUTE STROKE: No Thoracic Spine X-Ray 12/18/17 11:26 IMPRESSION: No acute changes. Degenerative changes as noted above. Other findings as noted above. CT of the head and cervical spine unremarkable. Thoracic spine x-rays negative. At this time nothing further. Will give closed head injury precautions and will DC at this time. - Vital Signs Vital signs: Temp Pulse Resp BP Pulse Ox 97.8 F 60 18 127/62 H 100 12/18/17 11:18 12/18/17 11:18 12/18/17 11:18 12/18/17 11:18 12/18/17 11:18 Discharge - Discharge Clinical Impression: Contusion of scalp, initial encounter Fall Qualifiers: Encounter type: initial encounter Qualified Code(s): W19.XXXA - Unspecified fall, initial encounter Minor head injury without loss of consciousness Qualifiers: Encounter type: initial encounter Qualified Code(s): S09.90XA - Unspecified injury of head, initial encounter Condition: Good Disposition: HOME-SNF (ED ONLY) Instructions: Head Injury Precautions ([facility]), Contusion ([facility]) Additional Instructions: Please follow-up with your regular doctor. Return for any worsening symptoms or concerns. Nothing was found today that looked abnormal. There were no fractures. There was nothing significantly abnormal with your head CT. In the event that you develop any blurred vision, nausea, intractable vomiting confusion or other concerns please return immediately for repeat evaluation.
--- NOTE | 2017-12-18 12:11 | RADIOLOGY REPORT (SQ) ---
EXAM DESCRIPTION: CT CERVICAL SPINE WITHOUT COMPLETED DATE/TIME: 12/18/2017 11:56 am REASON FOR STUDY: fall, pain COMPARISON: None. TECHNIQUE: Axial images acquired through the cervical spine without intravenous contrast. Images re viewed with lung, soft tissue and bone windows. Reconstructed coronal and sagittal MPR images review ed. Images stored on PACS. All CT scanners at this facility use dose modulation, iterative reconstruction, and/or weight based d osing when appropriate to reduce radiation dose to as low as reasonably achievable (ALARA). [facility]: Dose Right [facility]: CareDose [facility]: Dose Right [facility]: Teradose 4D [facility]: [employer] App RADIATION DOSE: CT Rad equipment meets quality standard of care and radiation dose reduction techniq ues were employed. CTDIvol: 24.2 mGy. DLP: 484 mGy-cm. mGy. LIMITATIONS: Patient motion. FINDINGS: ALIGNMENT: Anatomic. MINERALIZATION: Normal. VERTEBRAL BODIES: No fractures or dislocation. DISCS: Multilevel disc space narrowing with osteophytes. FACETS, LATERAL MASSES, POSTERIOR ELEMENTS: Facet arthropathy. No fractures. No dislocation. No ac rayna findings. HARDWARE: None in the spine. VISUALIZED RIBS: No fractures. LUNG APICES AND SOFT TISSUES: No significant or acute findings. OTHER: No other significant finding. IMPRESSION: CHRONIC DEGENERATIVE CHANGES. NO ACUTE FINDINGS. TECHNICAL DOCUMENTATION: JOB ID: [id number] Quality ID # [id number]: Final reports with documentation of one or more dose reduction techniques (e.g., Au tomated exposure control, adjustment of the mA and/or kV according to patient size, use of iterative reconstruction technique) 2010 [employer]- All Rights Reserved Reading location - IP/workstation name: [email or web address]
--- NOTE | 2017-12-18 12:24 | RADIOLOGY REPORT (SQ) ---
EXAM DESCRIPTION: CT HEAD WITHOUT COMPLETED DATE/TIME: 12/18/2017 11:56 am REASON FOR STUDY: fall, pain COMPARISON: July 2017 TECHNIQUE: Axial images acquired through the brain without intravenous contrast. Images reviewed wi th bone, brain and subdural windows. Additional sagittal and coronal reconstructions were generated. Images stored on PACS. All CT scanners at this facility use dose modulation, iterative reconstruction, and/or weight based d osing when appropriate to reduce radiation dose to as low as reasonably achievable (ALARA). [facility]: Dose Right [facility]: CareDose [facility]: Dose Right [facility]: Teradose 4D [facility]: Smart [employer] RADIATION DOSE: CT Rad equipment meets quality standard of care and radiation dose reduction techniq ues were employed. CTDIvol: 53.2 mGy. DLP: 1070 mGy-cm. mGy. LIMITATIONS: None. FINDINGS: VENTRICLES: Prominent. CEREBRUM: No masses. No hemorrhage. No midline shift. Areas of low density in the white matter mos t likely due to chronic micro-vascular ischemic change. No evidence for acute infarction. CEREBELLUM: No masses. No hemorrhage. No alteration of density. No evidence for acute infarction. EXTRAAXIAL SPACES: Mild age-related involutional change. No fluid collections. No masses. ORBITS AND GLOBE: No intra- or extraconal masses. Normal contour of globe without masses. CALVARIUM: No fracture. PARANASAL SINUSES: No fluid or mucosal thickening. SOFT TISSUES: No mass or hematoma. OTHER: Are presumed represent postsurgical changes are identified at the level of the mastoid air abhinav ls on the left unchanged from the previous study IMPRESSION: MILD CHRONIC CHANGES OF ATROPHY AND MICROVASCULAR ISCHEMIA. NO ACUTE PROCESS. EVIDENCE OF ACUTE STROKE: No TECHNICAL DOCUMENTATION: JOB ID: [id number] Quality ID # [id number]: Final reports with documentation of one or more dose reduction techniques (e.g., Au tomated exposure control, adjustment of the mA and/or kV according to patient size, use of iterative reconstruction technique) 2010 [employer]- All Rights Reserved Reading location - IP/workstation name: [email or web address]
--- NOTE | 2017-12-18 12:45 | RADIOLOGY REPORT (SQ) ---
EXAM DESCRIPTION: T SPINE AP/LAT COMPLETED DATE/TIME: 12/18/2017 12:30 pm REASON FOR STUDY: fall, pain COMPARISON: May 2011 NUMBER OF VIEWS: Two views. TECHNIQUE: AP and lateral radiographic images acquired of the thoracic spine. LIMITATIONS: Study is limited due to the patient's condition with cross-table lateral radiographs be ing obtained. FINDINGS: MINERALIZATION: Bony structures are diffusely osteopenic ALIGNMENT: Exaggerated thoracic kyphosis is identified. VERTEBRAE: No significant vertebral compressions are identified. Patient is status post kyphoplasty at multiple levels in the lower thoracic spine DISCS: No significant loss of height or significant narrowing. Osteophytic lipping is identified at multiple levels HARDWARE: Aortic stent is identified at the level of the ascending thoracic aorta. MEDIASTINUM AND SOFT TISSUES: Normal heart size and aortic contour. No soft tissue abnormality. VISUALIZED LUNG THOM[place]ON: Clear. OTHER: No other significant finding. IMPRESSION: No acute changes. Degenerative changes as noted above. Other findings as noted above. TECHNICAL DOCUMENTATION: JOB ID: [id number] [employer]- All Rights Reserved Reading location - IP/workstation name: [email or web address]
[2017-12-18 16:30] VITALS: BP 125/71
== END 2017-12-18 16:30 ==
LOC: ER 11:17
DX: S00.03XA Contusion of scalp, initial encounter (principal); W18.30XA Fall on same level, unspecified, initial encounter; Y92.129 Unspecified place in nursing home as the place of occurrence of the external cause; M54.2 Cervicalgia; M54.6 Pain in thoracic spine; I48.91 Unspecified atrial fibrillation; E78.00 Pure hypercholesterolemia, unspecified; I10 Essential (primary) hypertension; E11.9 Type 2 diabetes mellitus without complications; E03.9 Hypothyroidism, unspecified; Z88.6 Allergy status to analgesic agent; Z95.2 Presence of prosthetic heart valve; Z96.612 Presence of left artificial shoulder joint; Z96.642 Presence of left artificial hip joint; Z98.51 Tubal ligation status
CPT/HCPCS: 70450; 72070; 72125; 99285

== ENCOUNTER 2018-02-10 09:11 | Emergency (ER) | payer MEDICARE, OTHER ==
[2018-02-10] MEDS ORDERED: ASPIRIN 81 MG TABLET, CHEWABLE PO ONE (09:24)
[2018-02-10 09:49] LABS: ABSOLUTE EOSINOPHILS # (AUTO) 0.1 10^3/uL (0.0-0.6); ABSOLUTE LYMPHOCYTES (AUTO) 0.8 10^3/uL (0.5-4.7); ABSOLUTE MONOCYTES (AUTO) 0.4 10^3/uL (0.1-1.4); ABSOLUTE NEUT (AUTO) 4.7 10^3/uL (1.7-8.2); BASOPHILS % (AUTO) 0.3 % (0-2); EOSINOPHILS % (AUTO) 1.1 % (0-6); HEMATOCRIT 36.5 % (36.0-47.0); HEMOGLOBIN 12.1 g/dL (12.0-15.5); INTERNATIONAL RATION (INR) 0.93; LYMPHOCYTES % (AUTO) 13.8 % (13-45); MEAN CORPUSCULAR HEMOGLOBIN 31.8 pg (27.0-33.4); MEAN CORPUSCULAR HGB CONC 33.2 g/dL (32.0-36.0); MEAN CORPUSCULAR VOLUME 96 fl (80-97); MONOCYTES % (AUTO) 7.3 % (3-13); PLATELET COUNT 184 10^3/uL (150-450); RED BLOOD COUNT 3.81 10^6/uL (3.72-5.28); RED CELL DISTRIBUTION WIDTH 13.6 % (11.5-14.0); SEGMENTED NEUTROPHILS % (AUTO) 77.5 % (42-78); TOTAL CELLS COUNTED % (AUTO) 100 %; WHITE BLOOD COUNT 6.1 10^3/uL (4.0-10.5)
[2018-02-10 10:07] LABS: ALANINE AMINOTRANSFERASE 17 U/L (9-52); ALBUMIN 3.8 g/dL (3.5-5.0); ALKALINE PHOSPHATASE 107 U/L (38-126); ANION GAP 9 (5-19); ASPARTATE AMINO TRANSFERASE 17 U/L (14-36); BILIRUBIN,DIRECT 0.3 mg/dL (0.0-0.4); BILIRUBIN,TOTAL 0.3 mg/dL (0.2-1.3); BLOOD UREA NITROGEN 18 mg/dL (7-20); CALCIUM 9.2 mg/dL (8.4-10.2); CARBON DIOXIDE 28 mmol/L (22-30); CHLORIDE 110 mmol/L (98-107); CREATINE KINASE 30 U/L (30-135); GLUCOSE 104 mg/dL (75-110); POTASSIUM 4.8 mmol/L (3.6-5.0); SODIUM 146.8 mmol/L (137-145); TOTAL PROTEIN 6.4 g/dL (6.3-8.2)
--- NOTE | 2018-02-10 10:10 | RADIOLOGY REPORT (SQ) ---
EXAM DESCRIPTION: CHEST SINGLE VIEW COMPLETED DATE/TIME: 02/10/2018 10:00 am REASON FOR STUDY: cp COMPARISON: CT angio chest 02/21/2017 AP chest 02/18/2017 EXAM PARAMETERS: NUMBER OF VIEWS: One view. TECHNIQUE: Single frontal radiographic view of the chest acquired. RADIATION DOSE: NA LIMITATIONS: Portable technique, obese patient FINDINGS: LUNGS AND PLEURA: Stable bibasilar bandlike scarring or atelectasis. No fluffy alveolar infiltrates worrisome for edema or pneumonia. No pleural effusions. No pneumotho rax. MEDIASTINUM AND HILAR STRUCTURES: No masses. Contour normal. HEART AND VASCULAR STRUCTURES: Stable moderate cardiomegaly. Aortic valve replacement with cage. BONES: Osteoporotic. Bilateral shoulder replacements HARDWARE: None in the chest. OTHER: No other significant finding. IMPRESSION: No acute findings TECHNICAL DOCUMENTATION: JOB ID: [id number] [employer]- All Rights Reserved Reading location - IP/workstation name: [email or web address]
[2018-02-10 10:17] LABS: TROPONIN I 0.014 ng/mL
--- NOTE | 2018-02-10 11:01 | ER Document Report ---
ED General - General Chief Complaint: Chest Pain Stated Complaint: CHEST PAIN Time Seen by Provider: 02/10/18 09:24 TRAVEL OUTSIDE OF THE [place] IN LAST 30 DAYS: No - HPI Patient complains to provider of: Chest pain Notes: Patient coming in from local assisted for evaluation of chest pain. Patient is ongoing for the last 3 days. Denies any nausea vomiting fevers chills diarrhea abdominal pain. Patient denies any trauma to her chest. Patient states feels like someone is sitting on her for the last 3 days. Denies any shortness of breath. Denies any exacerbating factors. Patient resting comfortably upon my evaluation. - Related Data Allergies/Adverse Reactions: morphine [Morphine] Adverse Reaction (Verified 02/18/17 09:58) oxycodone [Oxycodone] Adverse Reaction (Verified 02/18/17 09:58) Past Medical History - Social History Smoking Status: Never Smoker Chew tobacco use (# tins/day): No Frequency of alcohol use: None Drug Abuse: None Family History: Reviewed & Not Pertinent Patient has suicidal ideation: No Patient has homicidal ideation: No - Past Medical History Cardiac Medical History: Reports: Hx Atrial Fibrillation, Hx Hypercholesterolemia, Hx Hypertension, Hx Heart Murmur Denies: Hx Congestive Heart Failure, Hx Coronary Artery Disease, Hx Heart Attack, Hx Peripheral Vascular Disease, Hx Pulmonary Embolism Pulmonary Medical History: Reports: Hx COPD Denies: Hx Asthma, Hx Bronchitis, Hx Pneumonia, Hx Respiratory Failure, Hx Sleep Apnea, Hx Tuberculosis Neurological Medical History: Denies: Hx Cerebrovascular Accident - DEMENTIA WITH DEPRESSION, Hx Seizures Endocrine Medical History: Reports: Hx Diabetes Mellitus Type 2, Hx Hypothyroidism. Denies: Hx Graves' Disease, Hx Hyperthyroidism Renal/ Medical History: Denies: Hx End Stage Renal Disease, Hx Kidney Stones, Hx Ovarian Cysts, Hx Peritoneal Dialysis, Hx Pelvic Inflammatory Disease Malignancy Medical History: Denies: Hx Breast Cancer, Hx Cervical Cancer, Hx Leukemia, Hx Lung Cancer, Hx Ovarian Cancer GI Medical History: Denies: Hx Crohn's Disease, Hx Gastroesophageal Reflux Disease, Hx Hepatitis, Hx Irritable Bowel, Hx Liver Failure, Hx Pancreatitis, Hx Ulcer. Comment Only: Hx Hiatal Hernia - diverticulitis Musculoskeltal Medical History: Reports Hx Arthritis, Denies Hx Fibromyalgia, Denies Hx Multiple Sclerosis, Denies Hx Muscular Dystrophy Psychiatric Medical History: Reports: Hx Dementia, Hx Depression Denies: Hx Bipolar Disorder, Hx Post Traumatic Stress Disorder, Hx Schizophrenia Traumatic Medical History: Denies: Hx Fractures Infectious Medical History: Denies: Hx Hepatitis, Hx HIV Past Surgical History: Reports: Hx Cardiac Surgery - Bio-prosthetic aortic valve replacement, Hx Orthopedic Surgery - L shoulder replacement, left hip, Hx Tubal Ligation, Hx Valve Replacement, Other - Right mastoid surgery for chronic mastoiditis. Denies: Hx Appendectomy, Hx Bowel Surgery, Hx Section, Hx Cholecystectomy, Hx Colostomy, Hx Coronary Artery Bypass Graft, Hx Gastric Bypass Surgery, Hx Herniorrhaphy, Hx Hysterectomy, Hx Mastectomy, Hx Open Heart Surgery, Hx Pacemaker, Hx Tonsillectomy - Immunizations Hx Diphtheria, Pertussis, Tetanus Vaccination: Yes Hx Pneumococcal Vaccination: 02/13/12 Review of Systems - Review of Systems Constitutional: No symptoms reported EENT: No symptoms reported Cardiovascular: Chest pain Respiratory: No symptoms reported Gastrointestinal: No symptoms reported Genitourinary: No symptoms reported Female Genitourinary: No symptoms reported Musculoskeletal: No symptoms reported Skin: No symptoms reported Hematologic/Lymphatic: No symptoms reported Neurological/Psychological: No symptoms reported -: Yes All other systems reviewed and negative Physical Exam - Vital signs Vitals: Pulse Ox 96 02/10/18 09:24 Interpretation: Normal - General General appearance: Appears well, Alert - HEENT Head: Normocephalic, Atraumatic Eyes: Normal Pupils: PERRL - Respiratory Respiratory status: No respiratory distress Chest status: Nontender Breath sounds: Normal Chest palpation: Normal - Cardiovascular Rhythm: Regular Heart sounds: Normal auscultation Murmur: No - Abdominal Inspection: Normal Distension: No distension Bowel sounds: Normal Tenderness: Nontender Organomegaly: No organomegaly - Back Back: Normal, Nontender - Extremities General upper extremity: Normal inspection, Nontender, Normal color, Normal ROM , Normal temperature General lower extremity: Normal inspection, Nontender, Normal color, Normal ROM , Normal temperature, Normal weight bearing. No: Nimesh's sign - Neurological Neuro grossly intact: Yes Cognition: Normal Orientation: AAOx4 [place] Coma Scale Eye Opening: Spontaneous Jose Coma Scale Verbal: Oriented Jose Coma Scale Motor: Obeys Commands [place] Coma Scale Total: 15 Speech: Normal Motor strength normal: LUE, RUE, LLE, RLE Sensory: Normal - Psychological Associated symptoms: Normal affect, Normal mood - Skin Skin Temperature: Warm Skin Moisture: Dry Skin Color: Normal Course - Re-evaluation Re-evalutation: 02/10/18 11:03 Patient with a negative stress test April last 02/10/18 14:22 The patient has atypical chest pain as the patient's chest pain is not suggestive of pulmonary embolus, cardiac ischemia, aortic dissection, or other serious etiology. Given the extremely low risk of these diagnoses further testing and evaluation for these possibilities does not appear to be indicated at this time. The patient has been instructed to return if the symptoms worsen or change in any way. No recurrence of chest pain while here in ER patient discharged - Vital Signs Vital signs: Temp Pulse Resp BP Pulse Ox 17 141/55 H 97 02/10/18 14:00 02/10/18 14:00 02/10/18 14:00 - Laboratory Result Diagrams: 02/10/18 09:23 02/10/18 09:23 Laboratory results interpreted by me: 02/10/18 09:23 Sodium 146.8 H Chloride 110 H Discharge - Discharge Clinical Impression: Chest wall pain Condition: Good Instructions: Chest Pain of Unclear Cause ([facility]) Additional Instructions: Patient's evaluation did not show any signs of cardiac abnormalities EKG normal troponins are normal. Chest x-ray does not show any signs of infection. Please have the patient follow-up with her primary care physician next 3-5 days. Recommend Tylenol for pain control at this time. Referrals: ITALO PALMER MD [Primary Care Provider] - Follow up as needed
--- NOTE | 2018-02-10 13:21 | EKG REPORT ---
SEVERITY:- ABNORMAL ECG - SINUS RHYTHM LEFT BUNDLE BRANCH BLOCK : Confirmed by: Gray Coles MD 10-Feb-2018 13:21:13
[2018-02-10 16:22] VITALS: BP 125/60
== END 2018-02-10 15:53 | disposition home or self-care (01) ==
LOC: ER 09:11
DX: R07.9 Chest pain, unspecified (principal); I48.91 Unspecified atrial fibrillation; E78.00 Pure hypercholesterolemia, unspecified; I10 Essential (primary) hypertension; J44.9 Chronic obstructive pulmonary disease, unspecified; E11.9 Type 2 diabetes mellitus without complications; E03.9 Hypothyroidism, unspecified; Z95.2 Presence of prosthetic heart valve; Z96.612 Presence of left artificial shoulder joint; Z88.6 Allergy status to analgesic agent; Z96.642 Presence of left artificial hip joint; Z98.51 Tubal ligation status
CPT/HCPCS: 36415; 71045; 80053; 82550; 82553; 84484; 85025; 85610; 93005; 93010; 99285

== ENCOUNTER → 2018-03-26 | Outpatient (CLI) | payer MEDICARE, OTHER ==
[2018-03-26 08:18] LABS: ABSOLUTE EOSINOPHILS # (AUTO) 0.1 10^3/uL (0.0-0.6); ABSOLUTE LYMPHOCYTES (AUTO) 0.9 10^3/uL (0.5-4.7); ABSOLUTE MONOCYTES (AUTO) 0.5 10^3/uL (0.1-1.4); ABSOLUTE NEUT (AUTO) 6.5 10^3/uL (1.7-8.2); BASOPHILS % (AUTO) 0.5 % (0-2); EOSINOPHILS % (AUTO) 1.2 % (0-6); HEMATOCRIT 37.6 % (36.0-47.0); HEMOGLOBIN 12.4 g/dL (12.0-15.5); LYMPHOCYTES % (AUTO) 10.6 % (13-45); MEAN CORPUSCULAR HEMOGLOBIN 31.4 pg (27.0-33.4); MEAN CORPUSCULAR HGB CONC 33.1 g/dL (32.0-36.0); MEAN CORPUSCULAR VOLUME 95 fl (80-97); MONOCYTES % (AUTO) 6.3 % (3-13); PLATELET COUNT 204 10^3/uL (150-450); RED BLOOD COUNT 3.96 10^6/uL (3.72-5.28); RED CELL DISTRIBUTION WIDTH 13.6 % (11.5-14.0); SEGMENTED NEUTROPHILS % (AUTO) 81.4 % (42-78); TOTAL CELLS COUNTED % (AUTO) 100 %
[2018-03-26 08:55] LABS: ALANINE AMINOTRANSFERASE 16 U/L (9-52); ALKALINE PHOSPHATASE 121 U/L (38-126); ANION GAP 14 (5-19); ASPARTATE AMINO TRANSFERASE 23 U/L (14-36); BILIRUBIN,DIRECT 0.3 mg/dL (0.0-0.4); BILIRUBIN,TOTAL 0.4 mg/dL (0.2-1.3); BLOOD UREA NITROGEN 21 mg/dL (7-20); CALCIUM 9.4 mg/dL (8.4-10.2); CARBON DIOXIDE 22 mmol/L (22-30); CHLORIDE 110 mmol/L (98-107); CHOLESTEROL 232.39 mg/dL (0-200); GLUCOSE 101 mg/dL (75-110); POTASSIUM 4.7 mmol/L (3.6-5.0); SODIUM 145.9 mmol/L (137-145); TOTAL PROTEIN 6.9 g/dL (6.3-8.2); TRIGLYCERIDES 167 mg/dL (<150)
[2018-03-26 09:06] LABS: DIRECT LDL 144 mg/dL (<100)
[2018-03-26 09:08] LABS: VLDL CHOLESTEROL 33.4 mg/dL (10-31)
== END ==
LOC: OD 07:42
PROVIDERS: ATTEND Internal Medicine
DX: I10 Essential (primary) hypertension (principal); E78.5 Hyperlipidemia, unspecified; R53.83 Other fatigue
CPT/HCPCS: 36415; 80053; 80061; 84443; 85025

== ENCOUNTER 2018-04-23 11:29 | Emergency (ER) | payer MEDICARE, OTHER ==
--- NOTE | 2018-04-23 11:50 | ER Document Report ---
ED Fall - General Chief Complaint: Fall Injury Stated Complaint: LEFT WRIST INJURY Time Seen by Provider: 04/23/18 11:45 Notes: This is a 82-year-old female to the emergency department chief complaint of pain in the left wrist. Patient is at a assisted living facility. States that she got dizzy and fell down. Complaining of pain in the left elbow and left wrist. Small skin tear in the left elbow. Denies any chest pain or shortness of breath. Denies any back pain, hip pain or leg pain. Did not hit her head. Did not lose consciousness. TRAVEL OUTSIDE OF THE [place] IN LAST 30 DAYS: No - HPI Occurred: Just prior to arrival Where: Intermediate Context: Fell from standing Associated symptoms: Became dizzy/fainted. denies: Lost consciousness, Difficulty breathing - Related data Allergies/Adverse Reactions: morphine [Morphine] Adverse Reaction (Verified 04/23/18 11:49) oxycodone [Oxycodone] Adverse Reaction (Verified 04/23/18 11:49) Past Medical History - General Information source: Patient, [facility] Records, Outside Facility Records - Social History Smoking Status: Never Smoker Cigarette use (# per day): No Frequency of alcohol use: None Drug Abuse: None Lives with: Intermediate Family History: Reviewed & Not Pertinent - Past Medical History Cardiac Medical History: Reports: Hx Atrial Fibrillation, Hx Hypercholesterolemia, Hx Hypertension, Hx Heart Murmur Denies: Hx Congestive Heart Failure, Hx Coronary Artery Disease, Hx Heart Attack, Hx Peripheral Vascular Disease, Hx Pulmonary Embolism Pulmonary Medical History: Reports: Hx COPD Denies: Hx Asthma, Hx Bronchitis, Hx Pneumonia, Hx Respiratory Failure, Hx Sleep Apnea, Hx Tuberculosis Neurological Medical History: Denies: Hx Cerebrovascular Accident - DEMENTIA WITH DEPRESSION, Hx Seizures Endocrine Medical History: Reports: Hx Diabetes Mellitus Type 2, Hx Hypothyroidism. Denies: Hx Graves' Disease, Hx Hyperthyroidism Renal/ Medical History: Denies: Hx End Stage Renal Disease, Hx Kidney Stones, Hx Ovarian Cysts, Hx Peritoneal Dialysis, Hx Pelvic Inflammatory Disease Malignancy Medical History: Denies: Hx Breast Cancer, Hx Cervical Cancer, Hx Leukemia, Hx Lung Cancer, Hx Ovarian Cancer GI Medical History: Denies: Hx Crohn's Disease, Hx Gastroesophageal Reflux Disease, Hx Hepatitis, Hx Irritable Bowel, Hx Liver Failure, Hx Pancreatitis, Hx Ulcer. Comment Only: Hx Hiatal Hernia - diverticulitis Musculoskeletal Medical History: Reports Hx Arthritis, Denies Hx Fibromyalgia, Denies Hx Multiple Sclerosis, Denies Hx Muscular Dystrophy Psychiatric Medical History: Reports: Hx Dementia, Hx Depression Denies: Hx Bipolar Disorder, Hx Post Traumatic Stress Disorder, Hx Schizophrenia Traumatic Medical History: Denies: Hx Fractures Infectious Medical History: Denies: Hx Hepatitis, Hx HIV Past Surgical History: Reports: Hx Cardiac Surgery - Bio-prosthetic aortic valve replacement, Hx Orthopedic Surgery - L shoulder replacement, left hip, Hx Tubal Ligation, Hx Valve Replacement, Other - Right mastoid surgery for chronic mastoiditis. Denies: Hx Appendectomy, Hx Bowel Surgery, Hx Section, Hx Cholecystectomy, Hx Colostomy, Hx Coronary Artery Bypass Graft, Hx Gastric Bypass Surgery, Hx Herniorrhaphy, Hx Hysterectomy, Hx Mastectomy, Hx Open Heart Surgery, Hx Pacemaker, Hx Tonsillectomy - Immunizations Hx Diphtheria, Pertussis, Tetanus Vaccination: Yes Hx Pneumococcal Vaccination: 02/13/12 Review of Systems - Review of Systems Notes: Constitutional: denies: Chills, Diaphoresis, Fever, Malaise, Weakness EENT: denies: Eye discharge, Blurred vision, Tearing, Double vision, Nose congestion, Nose discharge, Throat swelling, Mouth pain Cardiovascular: denies: Palpitations, Heart racing, Orthopnea, Dyspnea, Chest pain Respiratory: denies: Cough, Hurts to breathe, Wheezing, Shortness of breath Gastrointestinal: denies: Abdominal pain, Diarrhea, Nausea, Vomiting, Black stools, bright red blood in stool Genitourinary: denies: Burning, Dysuria, Discharge, Frequency, Flank pain, Hematuria Musculoskeletal: Pain in the left wrist, left elbow pain Hematologic/Lymphatic: denies: Anemia, Easy bleeding, Easy bruising, Blood clots Neurological/Psychological: denies: Confusion, Dementia, Depression, Loss of consciousness Skin: No lesions, no masses, no skin breakdown, no abscesses. Small skin defect in the left elbow region. Neurological/Psychological: No symptoms reported Physical Exam - Vital signs Vitals: Temp Pulse Resp BP Pulse Ox 97.6 F 56 L 20 134/56 H 94 04/23/18 12:02 04/23/18 12:02 04/23/18 12:02 04/23/18 12:02 04/23/18 12:02 Interpretation: Normal - General General appearance: Appears well, Alert - HEENT Head: Normocephalic, Atraumatic Eyes: Normal Pupils: PERRL - Respiratory Respiratory status: No respiratory distress Chest status: Nontender Breath sounds: Normal Chest palpation: Normal - Cardiovascular Rhythm: Regular Heart sounds: Normal auscultation Murmur: No - Abdominal Inspection: Normal Distension: No distension Bowel sounds: Normal Tenderness: Nontender Organomegaly: No organomegaly - Back Back: Normal, Nontender - Extremities General upper extremity: Normal color, Normal strength, Other - There is tenderness to palpation of the left distal radius and left distal ulna with deformity noted. Pulses are intact. There is some mild tenderness to palpation of the left elbow. Small skin tear noted on the left lateral elbow. There is a small skin defect noted on the volar surface of the distal radius on the left.. No: Edema General lower extremity: Normal inspection, Nontender, Normal color, Normal ROM , Normal temperature. No: Nimesh's sign - Neurological Neuro grossly intact: Yes Cognition: Normal Orientation: AAOx4 Jose Coma Scale Eye Opening: Spontaneous Jose Coma Scale Verbal: Oriented Jose Coma Scale Motor: Obeys Commands Jose Coma Scale Total: 15 Speech: Normal Motor strength normal: LUE, RUE, LLE, RLE Sensory: Normal - Psychological Associated symptoms: Normal affect, Normal mood - Skin Skin Temperature: Warm Skin Moisture: Dry Skin Color: Other - Small skin tear noted on the left elbow Course - Re-evaluation Re-evalutation: 04/23/18 13:44 Patient with comminuted intra-articular distal radius and ulnar fracture with skin defect on the volar surface ask a question whether not this is an open fracture. Consult with orthopedics. He recommends starting patient on IV antibiotics and oral antibiotics. We have placed patient in a splint. No significant results with reduction technique. This was communicated with orthopedics. He states the patient will more likely be managed conservatively with a cast but may need surgery if gets worse. Patient has been medicated. Tetanus has been updated. Antibiotics have been given. Head CT ordered. Labs ordered. 04/23/18 13:46 Laboratory 04/23/18 04/23/18 04/23/18 12:05 12:05 12:05 WBC 7.6 RBC 3.77 Hgb 11.9 L Hct 35.8 L MCV 95 MCH 31.5 MCHC 33.1 RDW 13.3 Plt Count 219 Seg Neutrophils % 79.4 H Lymphocytes % 12.5 L Monocytes % 6.5 Eosinophils % 1.1 Basophils % 0.5 Absolute Neutrophils 6.0 Absolute Lymphocytes 0.9 Absolute Monocytes 0.5 Absolute Eosinophils 0.1 Absolute Basophils 0.0 PT 13.6 INR 0.99 APTT 25.3 Sodium 143.8 Potassium 4.7 Chloride 107 Carbon Dioxide 26 Anion Gap 11 BUN 18 Creatinine 0.89 Est GFR ( Amer) > 60 Est GFR (Non-Af Amer) > 60 Glucose 142 H Calcium 9.5 Total Bilirubin 0.5 Direct Bilirubin 0.3 Neonat Total Bilirubin Not Reportable Neonat Direct Bilirubin Not Reportable Neonat Indirect Bili Not Reportable AST 20 ALT 18 Alkaline Phosphatase 133 H Troponin I Total Protein 6.9 Albumin 4.0 Urine Color Urine Appearance Urine pH Ur Specific [place] Urine Protein Urine Glucose (UA) Urine Ketones Urine Blood Urine Nitrite Urine Bilirubin Urine Urobilinogen Ur Leukocyte Esterase Urine WBC (Auto) Urine RBC (Auto) U Hyaline Cast (Auto) Urine Bacteria (Auto) Squamous Epi Cells Auto Urine Mucus (Auto) Urine Ascorbic Acid 04/23/18 04/23/18 12:05 12:05 WBC RBC Hgb Hct MCV MCH MCHC RDW Plt Count Seg Neutrophils % Lymphocytes % Monocytes % Eosinophils % Basophils % Absolute Neutrophils Absolute Lymphocytes Absolute Monocytes Absolute Eosinophils Absolute Basophils PT INR APTT Sodium Potassium Chloride Carbon Dioxide Anion Gap BUN Creatinine Est GFR ( Amer) Est GFR (Non-Af Amer) Glucose Calcium Total Bilirubin Direct Bilirubin Neonat Total Bilirubin Neonat Direct Bilirubin Neonat Indirect Bili AST ALT Alkaline Phosphatase Troponin I < 0.012 Total Protein Albumin Urine Color YELLOW Urine Appearance SLIGHTLY-CLOUDY Urine pH 5.0 Ur Specific [place] 1.008 Urine Protein NEGATIVE Urine Glucose (UA) NEGATIVE Urine Ketones NEGATIVE Urine Blood NEGATIVE Urine Nitrite NEGATIVE Urine Bilirubin NEGATIVE Urine Urobilinogen NEGATIVE Ur Leukocyte Esterase NEGATIVE Urine WBC (Auto) 2 Urine RBC (Auto) 1 U Hyaline Cast (Auto) 5 Urine Bacteria (Auto) 2+ Squamous Epi Cells Auto 4 Urine Mucus (Auto) RARE Urine Ascorbic Acid NEGATIVE 04/23/18 14:08 Procedure note: Hematoma block of left distal radius and ulna After consent was obtained the left distal radius and distal ulnar area at the site of the fracture was prepped with Betadine. After allowed to dry a 22- gauge needle with a mixture of bupivacaine and lidocaine was injected into fracture site. There was small amount of dark blood obtained at both the distal radius and ulna fracture sites. Small amount of mixture was injected. Moderate amount of relief of pain. After maximal amount of pain reduction was obtained the closed reduction of the fracture was performed and splinting was applied. Please see additional notes. 04/23/18 14:10 Consult with orthopedics was performed due to concern for open fracture. DR. Rizo recommends giving patient IV antibiotics and oral antibiotics and proceed with closed reduction technique as planned. Dr. Rizo does not feel patient needs emergent OR. 04/23/18 14:52 04/23/18 14:53 Elbow X-Ray 04/23/18 11:54 IMPRESSION: Limited negative study Head CT 04/23/18 12:48 IMPRESSION: No acute findings EVIDENCE OF ACUTE STROKE: NO. Wrist X-Ray 04/23/18 13:57 IMPRESSION: Partial reduction of the previously noted distal radial and ulnar fractures. Chest X-Ray 04/23/18 14:00 IMPRESSION: Basilar scarring. No acute findings. . - Vital Signs Vital signs: Temp Pulse Resp BP Pulse Ox 97.6 F 56 L 15 163/57 H 96 04/23/18 12:02 04/23/18 12:02 04/23/18 13:02 04/23/18 13:02 04/23/18 13:02 - Laboratory Result Diagrams: 04/23/18 12:05 04/23/18 12:05 Laboratory results interpreted by me: 04/23/18 04/23/18 12:05 12:05 Hgb 11.9 L Hct 35.8 L Seg Neutrophils % 79.4 H Lymphocytes % 12.5 L Glucose 142 H Alkaline Phosphatase 133 H - EKG Interpretation by [place]/QRS: LBBB When compared to previous EKG there are: No significant change Procedures - Joint Reduction/Fracture Care Left Distal Wrist Time completed: 14:04 Consent obtained: Yes Conscious sedation: No Pre-procedure NV exam: Yes Fracture: Open Post-procedure NV exam: Yes Post-reduction x-ray: Joint not reduced Reduction attempts: 1 Complications: No Notes: 04/23/18 14:05 There is a small defect noted in the volar aspect of the distal left wrist and radius. Begs a question if this could potentially be open fracture. Splint applied. Post splint neurovascular exam performed. - Laceration/Wound Repair Left Elbow Time completed: 14:06 Wound length (cm): 2 Wound's Depth, Shape: Superficial, Flap Wound explored: Clean Wound Repaired With: Dermabond Layer Closure?: No Post-procedure wound care: Sterile dressing applied, Splint applied Post-procedure NV exam normal: Yes Complications: No Discharge - Discharge Clinical Impression: Distal radius fracture, left Qualifiers: Encounter type: initial encounter Fracture type: closed Fracture morphology: Colles' Qualified Code(s): S52.532A - Colles' fracture of left radius, initial encounter for closed fracture Distal end of ulna fracture, closed Qualifiers: Encounter type: initial encounter Fracture morphology: unspecified fracture morphology Laterality: left Qualified Code(s): S52.602A - Unspecified fracture of lower end of left ulna, initial encounter for closed fracture Laceration of elbow without complication Qualifiers: Encounter type: initial encounter Laterality: left Qualified Code(s): S51.012A - Laceration without foreign body of left elbow, initial encounter Condition: Good Disposition: HOME-ASSISTED LIVING Instructions: Fractured Radius and Ulna ([facility]), Tetanus Immunization Given ([facility]) , Prophylactic Antibiotic ([facility]), Laceration Care ([facility]) Additional Instructions: Please follow-up with orthopedics as soon as possible for evaluation and casting. You have been placed in a splint. The splint is designed to help keep the bone fragments immobilized. It is possible that the fracture may have punctured through the skin. This is called an open fracture. We have given you antibiotics and we are prescribing you oral antibiotics as well. In the event that you begin to develop a fever or noticed that your hand or arm is excessively swollen you will need to be seen as soon as possible. Take your antibiotics as prescribed. You may use pain medication as prescribed. In the event the you have any worsening symptoms or concerns please return for repeat evaluation. Prescriptions: Cephalexin Monohydrate [Keflex 500 mg Capsule] 500 mg PO Q6H 3 Days #12 capsule Cephalexin Monohydrate [Keflex 500 mg Capsule] 500 mg PO Q6H 5 Days #20 capsule Hydrocodone/Acetaminophen [[place] 5-325 mg Tablet] 1 tab PO TID PRN 4 Days #12 tablet PRN Reason: For Pain Referrals: ITALO PALMER MD [Primary Care Provider] - Follow up as needed TONY IQBAL MD [ACTIVE STAFF] - Follow up in 3-5 days
[2018-04-23] MEDS ORDERED: FENTANYL CITRATE INJ/PF 100 MCG/2 ML AMPUL IV ONE ×2 (12:11→12:49)
[2018-04-23] MEDS ORDERED: FENTANYL CITRATE INJ/PF 100 MCG/2 ML AMPUL ONE (12:12)
[2018-04-23 12:19] LABS: ABSOLUTE EOSINOPHILS # (AUTO) 0.1 10^3/uL (0.0-0.6); ABSOLUTE LYMPHOCYTES (AUTO) 0.9 10^3/uL (0.5-4.7); ABSOLUTE MONOCYTES (AUTO) 0.5 10^3/uL (0.1-1.4); BASOPHILS % (AUTO) 0.5 % (0-2); EOSINOPHILS % (AUTO) 1.1 % (0-6); HEMATOCRIT 35.8 % (36.0-47.0); HEMOGLOBIN 11.9 g/dL (12.0-15.5); LYMPHOCYTES % (AUTO) 12.5 % (13-45); MEAN CORPUSCULAR HEMOGLOBIN 31.5 pg (27.0-33.4); MEAN CORPUSCULAR HGB CONC 33.1 g/dL (32.0-36.0); MEAN CORPUSCULAR VOLUME 95 fl (80-97); MONOCYTES % (AUTO) 6.5 % (3-13); PLATELET COUNT 219 10^3/uL (150-450); RED BLOOD COUNT 3.77 10^6/uL (3.72-5.28); RED CELL DISTRIBUTION WIDTH 13.3 % (11.5-14.0); SEGMENTED NEUTROPHILS % (AUTO) 79.4 % (42-78); TOTAL CELLS COUNTED % (AUTO) 100 %; WHITE BLOOD COUNT 7.6 10^3/uL (4.0-10.5)
[2018-04-23 12:22] LABS: APPEARANCE,URINE SLIGHTLY-CLOUDY; BILIRUBIN,URINE NEGATIVE (NEGATIVE); COLOR,URINE YELLOW; GLUCOSE, URINE NEGATIVE (NEGATIVE); KETONES,URINE NEGATIVE (NEGATIVE); LEUKOCYTE ESTERASE,URINE NEGATIVE (NEGATIVE); NITRITE,URINE NEGATIVE (NEGATIVE); PROTEIN,URINE NEGATIVE (NEGATIVE); URINE SPECIFIC GRAVITY 1.008; UROBILINOGEN,URINE NEGATIVE mg/dL (<2.0)
[2018-04-23 12:26] LABS: INTERNATIONAL RATION (INR) 0.99; PROTHROMBIN TIME 13.6 SEC (11.4-15.4)
[2018-04-23 12:27] LABS: PARTIAL THROMBOPLASTIN TIME 25.3 SEC (23.5-35.8)
[2018-04-23 12:34] LABS: ALANINE AMINOTRANSFERASE 18 U/L (9-52); ALKALINE PHOSPHATASE 133 U/L (38-126); ANION GAP 11 (5-19); ASPARTATE AMINO TRANSFERASE 20 U/L (14-36); BILIRUBIN,DIRECT 0.3 mg/dL (0.0-0.4); BILIRUBIN,TOTAL 0.5 mg/dL (0.2-1.3); BLOOD UREA NITROGEN 18 mg/dL (7-20); CALCIUM 9.5 mg/dL (8.4-10.2); CARBON DIOXIDE 26 mmol/L (22-30); CHLORIDE 107 mmol/L (98-107); GLUCOSE 142 mg/dL (75-110); POTASSIUM 4.7 mmol/L (3.6-5.0); SODIUM 143.8 mmol/L (137-145); TOTAL PROTEIN 6.9 g/dL (6.3-8.2)
[2018-04-23] MEDS ORDERED: LIDOCAINE 2% INJ-PF (20 MG/ML) 10 ML AMPUL INFIL ONE (12:44)
--- NOTE | 2018-04-23 12:45 | RADIOLOGY REPORT (SQ) ---
EXAM DESCRIPTION: ELBOW LEFT AP/LATERAL COMPLETED DATE/TIME: 04/23/2018 12:38 pm REASON FOR STUDY: fall, injury pain COMPARISON: None. NUMBER OF VIEWS: Two views TECHNIQUE: Two-views radiographic images acquired of the left elbow. LIMITATIONS: Two views only, lateral film rotated FINDINGS: MINERALIZATION: Osteoporotic BONES: No acute fracture or dislocation. No worrisome bone lesions. JOINT: No effusion. SOFT TISSUES: No soft tissue swelling. No foreign body. OTHER: No other significant finding. IMPRESSION: Limited negative study TECHNICAL DOCUMENTATION: JOB ID: [id number] [employer]- All Rights Reserved Reading location - IP/workstation name: [email or web address]
[2018-04-23] MEDS ORDERED: BUPIVACAINE HCL 0.5 % INJ/PF 30 ML SDV INJ ONE (12:47)
--- NOTE | 2018-04-23 12:47 | RADIOLOGY REPORT (SQ) ---
EXAM DESCRIPTION: WRIST LEFT 3 VIEWS COMPLETED DATE/TIME: 04/23/2018 12:38 pm REASON FOR STUDY: fall, pain COMPARISON: Left elbow two views same date NUMBER OF VIEWS: Three views. TECHNIQUE: AP, lateral, and oblique radiographic images acquired of the left wrist. LIMITATIONS: None. FINDINGS: MINERALIZATION: Osteoporotic BONES: Acute comminuted fracture distal left radius metaphysis with intra-articular extension. Dorsa l subluxation/dislocation of distal radius fragments and the radiocarpal joint. Acute comminuted fracture distal left ulna metaphysis with dorsal angulation. Carpal bones, proximal metacarpals are intact. SOFT TISSUES: Diffuse soft tissue swelling OTHER: No other significant finding. IMPRESSION: Acute comminuted fracture distal left radius metaphysis with intra-articular extension. Dorsal subluxation/dislocation of the radiocarpal joint. Acute comminuted fracture distal left ulna metaphysis with dorsal angulation TECHNICAL DOCUMENTATION: JOB ID: [id number] [employer]- All Rights Reserved Reading location - IP/workstation name: [email or web address]
[2018-04-23] MEDS ORDERED: HYDROCODONE/ACETAMINOPHEN 5-325 MG TABLET PO ONE (12:48)
[2018-04-23] MEDS ORDERED: LIDOCAINE 2% INJ (20 MG/ML) 20 ML MDV INFIL ONE (13:15)
[2018-04-23] MEDS ORDERED: CEFAZOLIN 1 GM/D5W RTU 1 GM/50 ML RTUPB IV ONE (13:40)
[2018-04-23] MEDS ORDERED: DIPH/PERTUSS(ACELL)/TETANUS VAC/PF 0.5 ML SYR (>=10YO) IM ONE (13:46)
--- NOTE | 2018-04-23 14:20 | RADIOLOGY REPORT (SQ) ---
EXAM DESCRIPTION: CT HEAD WITHOUT COMPLETED DATE/TIME: 04/23/2018 2:09 pm REASON FOR STUDY: fall, head injury COMPARISON: [address] brain exams since 11/22/2008, most recently 12/18/2017 TECHNIQUE: Axial images acquired through the brain without intravenous contrast. Images reviewed wi th bone, brain and subdural windows. Additional sagittal and coronal reconstructions were generated. Images stored on PACS. All CT scanners at this facility use dose modulation, iterative reconstruction, and/or weight based d osing when appropriate to reduce radiation dose to as low as reasonably achievable (ALARA). [facility]: Dose Right [facility]: CareDose [facility]: Dose Right [facility]: Teradose 4D [facility]: Bitboys Oy RADIATION DOSE: CT Rad equipment meets quality standard of care and radiation dose reduction techniq ues were employed. CTDIvol: 53.2 mGy. DLP: 1097 mGy-cm. mGy. LIMITATIONS: None. FINDINGS: VENTRICLES: Normal size and contour. CEREBRUM: No masses. No hemorrhage. No midline shift. No evidence for acute infarction. Normal gra y/white matter differentiation. Spotty low attenuation in the bifrontal and biparietal white matter from age-appropriate small vessel ischemic change CEREBELLUM: No masses. No hemorrhage. No alteration of density. No evidence for acute infarction. EXTRAAXIAL SPACES: No fluid collections. No masses. ORBITS AND GLOBE: No intra- or extraconal masses. Bilateral cataract surgery CALVARIUM: No fracture. PARANASAL SINUSES: No fluid or mucosal thickening. SOFT TISSUES: No mass or hematoma. OTHER: Old left mastoidectomy defect IMPRESSION: No acute findings EVIDENCE OF ACUTE STROKE: NO. COMMENT: Quality ID # [id number]: Final reports with documentation of one or more dose reduction techniques (e.g., Automated exposure control, adjustment of the mA and/or kV according to patient size, use of iterative reconstruction technique) TECHNICAL DOCUMENTATION: JOB ID: [id number] [employer]- All Rights Reserved Reading location - IP/workstation name: [email or web address]
--- NOTE | 2018-04-23 14:49 | RADIOLOGY REPORT (SQ) ---
EXAM DESCRIPTION: WRIST LEFT 2 VIEWS COMPLETED DATE/TIME: 04/23/2018 2:40 pm REASON FOR STUDY: post splint COMPARISON: 04/23/2018 NUMBER OF VIEWS: Two views. TECHNIQUE: AP and lateral radiographic images acquired of the left wrist. LIMITATIONS: None. FINDINGS: MINERALIZATION: Osteopenia. BONES: Partial reduction of the previously noted distal radial and ulnar fracture. In plaster. SOFT TISSUES: No soft tissue swelling. No foreign body. OTHER: No other significant finding. IMPRESSION: Partial reduction of the previously noted distal radial and ulnar fractures. TECHNICAL DOCUMENTATION: JOB ID: [id number] [employer]- All Rights Reserved Reading location - IP/workstation name: [email or web address]
--- NOTE | 2018-04-23 14:51 | RADIOLOGY REPORT (SQ) ---
EXAM DESCRIPTION: CHEST SINGLE VIEW COMPLETED DATE/TIME: 04/23/2018 2:40 pm REASON FOR STUDY: fall COMPARISON: 02/10/2018 EXAM PARAMETERS: NUMBER OF VIEWS: One view. TECHNIQUE: Single frontal radiographic view of the chest acquired. RADIATION DOSE: NA LIMITATIONS: None. FINDINGS: LUNGS AND PLEURA: Linear scarring in both lungs. No acute opacities. MEDIASTINUM AND HILAR STRUCTURES: No masses. Contour normal. HEART AND VASCULAR STRUCTURES: Heart normal in size. Normal vasculature. BONES: Shoulder replacements. No obvious fractures. HARDWARE: Aortic graft. OTHER: No other significant finding. IMPRESSION: Basilar scarring. No acute findings. . TECHNICAL DOCUMENTATION: JOB ID: [id number] [employer]- All Rights Reserved Reading location - IP/workstation name: [email or web address]
[2018-04-23] MEDS ORDERED: HYDROCODONE/ACETAMINOPHEN 5-325 MG (6 TAB/ER DISP) PO PRN (15:04)
[2018-04-23 15:26] VITALS: BP 145/58
--- NOTE | 2018-04-23 16:56 | EKG REPORT ---
SEVERITY:- ABNORMAL ECG - SINUS RHYTHM LEFT BUNDLE BRANCH BLOCK : Confirmed by: Cayla Schulz 23-Apr-2018 16:55:51
== END 2018-04-23 15:46 | disposition home health service (06) ==
LOC: ER 11:29
PROC: 0PSJXZZ Reposition Left Radius, External Approach (ICD-10-PCS; principal; 2018-04-23)
PROC: 0PSLXZZ Reposition Left Ulna, External Approach (ICD-10-PCS; 2018-04-23)
DX: S52.572A Other intraarticular fracture of lower end of left radius, initial encounter for closed fracture (principal); S52.692A Other fracture of lower end of left ulna, initial encounter for closed fracture; W19.XXXA Unspecified fall, initial encounter; Y92.099 Unspecified place in other non-institutional residence as the place of occurrence of the external cause; Z88.6 Allergy status to analgesic agent; I10 Essential (primary) hypertension; E78.00 Pure hypercholesterolemia, unspecified; J44.9 Chronic obstructive pulmonary disease, unspecified; E11.9 Type 2 diabetes mellitus without complications; E03.9 Hypothyroidism, unspecified; R42 Dizziness and giddiness; Z95.2 Presence of prosthetic heart valve; Z96.612 Presence of left artificial shoulder joint; Z96.642 Presence of left artificial hip joint; Z79.01 Long term (current) use of anticoagulants
CPT/HCPCS: 99284; 25605; 90471; 93005; 36415; 85025; 85610; 85730; 80053; 81001; 84484; 71045; 73070; 73100; 73110; 70450; 90715; 93010; J3490 ×2; J0690; J3010; A9270 ×2

== ENCOUNTER 2018-05-06 11:02 | Day surgery (SDC) | payer MEDICARE, OTHER ==
--- NOTE | 2018-05-04 12:34 | RADIOLOGY REPORT (SQ) ---
EXAM DESCRIPTION: CHEST PA/LATERAL COMPLETED DATE/TIME: 05/04/2018 12:10 pm REASON FOR STUDY: PRE-OP COMPARISON: AP chest 04/23/2018 EXAM PARAMETERS: NUMBER OF VIEWS: two views TECHNIQUE: Digital Frontal and Lateral radiographic views of the chest acquired. RADIATION DOSE: NA LIMITATIONS: none FINDINGS: LUNGS AND PLEURA: Mild patchy airspace disease left lung base, atelectasis versus pneumoni a. Stable bandlike scarring right lung base. Old right rib defect post thoracotomy. No pleural effusions. No pneumothorax. MEDIASTINUM AND HILAR STRUCTURES: No masses or contour abnormalities. HEART AND VASCULAR STRUCTURES: Stable mild cardiomegaly. BONES: Osteoporotic, old right thoracotomy, bilateral shoulder replacements HARDWARE: Aortic valve replacement with metallic cage. Old lower thoracic/ upper lumbar kyphoplastie s OTHER: No other significant finding. IMPRESSION: New Patchy airspace disease left lung base compared 04/23/2018 TECHNICAL DOCUMENTATION: JOB ID: [id number] [employer]- All Rights Reserved Reading location - IP/workstation name: [email or web address]
[2018-05-04 12:50] LABS: HEMATOCRIT 34.8 % (36.0-47.0); HEMOGLOBIN 11.7 g/dL (12.0-15.5); MEAN CORPUSCULAR HEMOGLOBIN 32.1 pg (27.0-33.4); MEAN CORPUSCULAR HGB CONC 33.6 g/dL (32.0-36.0); MEAN CORPUSCULAR VOLUME 96 fl (80-97); PLATELET COUNT 272 10^3/uL (150-450); RED BLOOD COUNT 3.64 10^6/uL (3.72-5.28); RED CELL DISTRIBUTION WIDTH 13.5 % (11.5-14.0); WHITE BLOOD COUNT 9.4 10^3/uL (4.0-10.5)
[2018-05-04 13:11] LABS: ANION GAP 8 (5-19); BLOOD UREA NITROGEN 21 mg/dL (7-20); CALCIUM 9.5 mg/dL (8.4-10.2); CARBON DIOXIDE 27 mmol/L (22-30); CHLORIDE 105 mmol/L (98-107); GLUCOSE 110 mg/dL (75-110); POTASSIUM 5.4 mmol/L (3.6-5.0); SODIUM 140.1 mmol/L (137-145)
[2018-05-04 14:51] LABS: APPEARANCE,URINE SLIGHTLY-CLOUDY; BILIRUBIN,URINE NEGATIVE (NEGATIVE); COLOR,URINE YELLOW; GLUCOSE, URINE NEGATIVE (NEGATIVE); KETONES,URINE NEGATIVE (NEGATIVE); LEUKOCYTE ESTERASE,URINE MODERATE (NEGATIVE); NITRITE,URINE NEGATIVE (NEGATIVE); PROTEIN,URINE NEGATIVE (NEGATIVE); URINE SPECIFIC GRAVITY 1.013; UROBILINOGEN,URINE NEGATIVE mg/dL (<2.0)
--- NOTE | 2018-05-04 21:51 | EKG REPORT ---
SEVERITY:- ABNORMAL ECG - SINUS RHYTHM LEFT BUNDLE BRANCH BLOCK : Confirmed by: Chayo Dumont MD 04-May-2018 21:50:32
[~2018-05-06 11:02] MED LIST: CEFAZOLIN 2 GM/D5W RTU 2 GM/50 ML RTUPB IV PRN; DEXAMETHASONE SOD PHOSPHATE INJ 4 MG/1 ML VIAL ONE; GLYCOPYRROLATE 1 MG/5 ML SYRINGE ONE; LACTATED RINGERS 1000 ML IV PRN; LIDOCAINE 0.5% INJ-PF (5 MG/ML) 50 ML SDV SUBCUT PRN; ONDANSETRON HCL INJ/PF 4 MG/2 ML SDV ONE; PHENYLEPHRINE HCL INJ/PF 10 MG/1 ML SDV ONE; ROCURONIUM BROMIDE INJ 50 MG/5 ML VIAL IV ONE; SUCCINYLCHOLINE CHLORIDE INJ 200 MG/10 ML VIAL ONE
[2018-05-06] MEDS ORDERED: FENTANYL CITRATE INJ/PF 100 MCG/2 ML AMPUL ONE (11:14)
[2018-05-06] MEDS ORDERED: MIDAZOLAM 2 MG/2 ML INJ ONE (11:14)
[2018-05-06] MEDS ORDERED: PROPOFOL INJ 200 MG/20 ML VIAL IV ONE (11:15)
--- NOTE | 2018-05-06 12:26 | RADIOLOGY REPORT (SQ) ---
EXAM DESCRIPTION: CHEST SINGLE VIEW COMPLETED DATE/TIME: 05/06/2018 11:53 am REASON FOR STUDY: PREOP COMPARISON: 05/04/2018 EXAM PARAMETERS: NUMBER OF VIEWS: One view. TECHNIQUE: Single frontal radiographic view of the chest acquired. RADIATION DOSE: NA LIMITATIONS: Patient has again made a shallow inspiration FINDINGS: LUNGS AND PLEURA: The previously described mild patchy airspace disease has almost complet amaya resolved with only minimal residual changes being identified MEDIASTINUM AND HILAR STRUCTURES: No masses. Contour normal. HEART AND VASCULAR STRUCTURES: The configuration of the heart mediastinal structures is unchanged. BONES: No acute findings. HARDWARE: Bilateral shoulder prostheses are again identified. OTHER: No other significant finding. IMPRESSION: Interval improvement as noted above. TECHNICAL DOCUMENTATION: JOB ID: [id number] [employer]- All Rights Reserved Reading location - IP/workstation name: [email or web address]
[2018-05-06] MEDS ORDERED: CEFAZOLIN 2 GM/D5W RTU 2 GM/50 ML RTUPB IV ONE (12:57)
[2018-05-06] MEDS ORDERED: BUPIVACAINE HCL 0.5 % INJ/PF 30 ML SDV ONE (13:17)
[2018-05-06] MEDS ORDERED: PROMETHAZINE HCL INJ 25 MG/1 ML VIAL IV PRN ×2 (14:22)
[2018-05-06] MEDS ORDERED: FENTANYL CITRATE INJ/PF 100 MCG/2 ML AMPUL IV PRN ×4 (14:22→15:21)
[2018-05-06] MEDS ORDERED: ACETAMINOPHEN 1,000 MG/100 ML RTUPB IV ONE (14:22)
[2018-05-06] MEDS ORDERED: DIPHENHYDRAMINE HCL 50 MG/ML VIAL IV PRN (14:22)
[2018-05-06] MEDS ORDERED: HYDROCODONE/ACETAMINOPHEN 5-325 MG TABLET PO PRN (15:21)
[2018-05-06] MEDS ORDERED: ONDANSETRON HCL INJ/PF 4 MG/2 ML SDV IV PRN (15:21)
--- NOTE | 2018-05-06 15:29 | RADIOLOGY REPORT (SQ) ---
EXAM DESCRIPTION: WRIST LEFT 2 VIEWS COMPLETED DATE/TIME: 05/06/2018 3:18 pm REASON FOR STUDY: ORIF LEFT WRIST S52.502A UNSP FRACTURE OF THE LOWER END OF LEFT RADIUS, INIT Z79. 01 RESIDENTIAL (CURRENT) USE OF ANTICOAGULANTS COMPARISON: Plain films dated 04/23/2018 FLUOROSCOPY TIME: 1 minutes 56 seconds 5 images saved to PACS. TECHNIQUE: Intra-operative images acquired during surgical procedure to evaluate progress. NUMBER OF IMAGES: 5 images LIMITATIONS: None. FINDINGS: Fluoroscopic images were obtained during internal fixation of the previously described dis belle ulna and radial fractures. Orthopedic hardware is identified in position. Please refer to the burton mauro's operative report for additional information IMPRESSION: IMAGE(S) OBTAINED DURING PROCEDURE. COMMENT: Quality ID [id number]: Final reports for procedures using fluoroscopy that document radiation exp osure indices, or exposure time and number of fluorographic images (if radiation exposure indices are not available) Please consult full operative report of the attending physician for description of the procedure. TECHNICAL DOCUMENTATION: JOB ID: [id number] [employer]- All Rights Reserved Reading location - IP/workstation name: [email or web address]
--- NOTE | 2018-05-06 15:29 | RADIOLOGY REPORT (SQ) ---
EXAM DESCRIPTION: NO CHG FLUORO COMPLETE DATE/TIME: 05/06/2018 3:18 pm REASON FOR STUDY: ORIF LEFT WRIST S52.502A UNSP FRACTURE OF THE LOWER END OF LEFT RADIUS, INIT Z79. 01 PENITENTIARY (CURRENT) USE OF ANTICOAGULANTS FINDINGS: Please see combined report for performance of procedure and radiologic supervision and int erpretation. IMPRESSION: Please see combined report for performance of procedure and radiologic supervision and i nterpretation. Reading location - IP/workstation name: [email or web address]
--- NOTE | 2018-05-06 15:29 | Operative Report ---
Operative Report DATE OF SURGERY: 05/06/18 PREOPERATIVE DIAGNOSIS: Comminuted intra-articular 3 part distal radius fracture , osteoporosis left wrist. Associated comminuted distal ulna fracture POSTOPERATIVE DIAGNOSIS: Same OPERATION: Open reduction internal fixation comminuted intra-articular 3 part distal radius fracture with distraction bridge plate, nonoperative treatment distal ulna fracture SURGEON: CASSIE PLUMMER ANESTHESIA: GA COMPLICATIONS: None ESTIMATED BLOOD LOSS: Minimal PROCEDURE: Indication for above procedure: Pleasant 82-year-old female who sustained a fall onto her left wrist. Patient had comminuted intra-articular distal radius fracture she was seen at the emergency room where closed reduction was attempted. Patient was then seen in my office where x-rays demonstrated malalignment of the distal radius fracture. At that point we discussed treatment options including nonoperative intervention versus operative treatment given the amount of comminution and displacement decision was made to proceed with operative treatment pending medical clearance. Patient was seen and evaluated by cardiology and found orthopedically stable for operative treatment thus decision was made to proceed with operative intervention. Procedure In Detail: Patient was seen and evaluated in the preoperative holding area. The LEFT upper extremity was initialized and marked. Patient received 2g of Ancef IV for bacterial prophylaxis. Patient was taken back to the operative room where transferred to the operative table and placed under general anesthesia. Once they were adequately anesthetized a nonsterile tourniquet was placed on the upper extremity. A surgical team debriefing was performed ensuring all instrumentation was available, the surgical procedure was discussed with possible concerns reviewed. The upper extremity was prepped with chlorhexidine and alcohol and draped in a sterile fashion. A timeout was done identifying correct patient, procedure and extremity everyone in attendance agree with this and verbalized no concerns. The extremity was exsanguinated the tourniquet was inflated to 250 mmHg. Traction was performed to the distal radius which adequately reduced the fracture. A distraction bridge plate was placed and determined the third metacarpal to the radial shaft was the appropriate placement. A K wire was placed across the radial styloid into the volar ulnar fragment which held the reduction at the articular surface. I then proceeded with placement of distraction bridge plate. Skin incision was made along the third metacarpal. Blunt dissection performed. Any peripheral veins were coagulated with bipolar cautery and extensor tendons were retracted exposing the third metacarpal shaft. A second incision was made over the fourth dorsal compartment at the wrist and a small incision was made within the retinaculum to identify the fourth dorsal compartment tendons and EPL. Lastly a third incision was made along the radial shaft blunt dissection was performed the EDC tendons, first dorsal compartment tendons and ECRB were retracted to expose the radial shaft. A small elevator was then placed from the most proximal fraying tendons and soft tissue from the third metacarpal and radius to allow easy placement of the distraction bridge plate. The distraction bridge plate was then advanced from distal to proximal volar to the extensor tendons which was confirmed with direct visualization from the incisions. The distraction bridge plate was first attached distally with a bicortical screw. I then determine appropriate placement proximally and the plate was K wire into position and confirmed with C arm fluoroscopy. Fixation was then completed distally with 3 additional locking screws. The dynamic hole was then drilled bicortically within the radial shaft. While my assistant controller held traction and the articular fragments were elevated a rafting locking screw was placed on the subchondral surface of the distal radius maintaining reduction of the articular surface. The dynamic screw proximally was then secured into position. C-arm fluoroscopy was obtained confirming placement of the plate in the appropriate position and adequate reduction of the articular surface yazidism of radial height, inclination and volar tilt. No evidence of carpal subluxation. Fixation was then completed proximally with an additional bicortical screw and 2 additional locking screws. C-arm fluoroscopy was obtained confirming adequate reduction. The wounds were copiously irrigated with normal saline. Tourniquet was deflated. Any peripheral bleeding was controlled with bipolar cautery until the wound was dry. 30 cc of 0.5% Marcaine without epinephrine was injected for postoperative pain control. There was no evidence of DRUJ instability or instability of the distal ulna fracture thus decision was made to treat this nonoperatively. Surgical incisions were closed with interrupted 4-0 nylon suture. Wound was dressed with Xeroform 4 x 4's and patient was placed in a volar and dorsal fiberglass splint. Sponge counts, instrument counts, needle counts counts were correct. Patient was then awoken from anesthesia. Transferred from the operating room table to the operating room stretcher. There was no intraoperative complications patient tolerated procedure well stable to PACU. Postoperative plan: Patient will follow-up the office in 2 weeks at which point we will proceed with suture removal and patient will be fitted for a Exos brace. Will obtain radiographs of the wrist at follow-up. Plan will be for distraction bridge plate removal 12 weeks postoperatively.
--- NOTE | 2018-05-06 15:30 | Discharge Summary ---
Discharge Summary (SDC) - Discharge Final Diagnosis: Comminuted intra-articular left distal radius fracture Date of Surgery: 05/06/18 Discharge Date: 05/06/18 Condition: Good Treatment or Instructions: Schedule Follow Up w/ Dr. Jace Sanchez @ [facility] to be seen in 10-14 days or as scheduled [place]: [place]: [place]: Ice and elevate Keep splint clean/dry/intact. If your fingers become numb please unwrap the Adriel wrap but leave the splint in place, if the sensation does not return within 30 minutes please return to the emergency department. May begin finger range of motion attempting to make full fist. Please use ibuprofen (Motrin or Advil) 600-800 mg every 8 hours as needed for pain or fever DO NOT TAKE w/ TORADOL may use once TORADOL complete. You may also use acetaminophen (Tylenol) 1000 mg every 4-6 hours as needed for pain or fever. Please be aware that many medications contain acetaminophen, do not exceed a total of 1000 mg of acetaminophen every 6 hours. If ibuprofen and acetaminophen are not sufficient for your pain you may take the Percocet/Wagner. Please be aware that the Percocet/Wagner does contain Tylenol. Stool softener of choice when on pain medication. Prescriptions: Hydrocodone/Acetaminophen [[place] 5-325 mg Tablet] 1 tab PO Q6 PRN #25 tablet PRN Reason: Referrals: ITALO PALMER MD [Primary Care Provider] - Discharge Diet: As Tolerated Respiratory Treatments at Home: Deep Breathing/Coughing, Incentive Spirometer
[2018-05-06] MEDS: FENTANYL CITRATE INJ/PF 100 MCG/2 ML AMPUL ONE ×2 (15:35→15:41)
[2018-05-06] MEDS ORDERED: HYDROCODONE/ACETAMINOPHEN 5-325 MG TABLET ONE (16:46)
[2018-05-06 18:04] VITALS: BP 179/71
== END 2018-05-06 17:55 | disposition home or self-care (01) ==
LOC: OROUT 11:02
PROVIDERS: ATTEND Orthopaedic Surgery
DX: S52.572A Other intraarticular fracture of lower end of left radius, initial encounter for closed fracture (principal); S52.602A Unspecified fracture of lower end of left ulna, initial encounter for closed fracture; W19.XXXA Unspecified fall, initial encounter; M81.0 Age-related osteoporosis without current pathological fracture; J44.9 Chronic obstructive pulmonary disease, unspecified; I10 Essential (primary) hypertension; M19.90 Unspecified osteoarthritis, unspecified site; D64.9 Anemia, unspecified; E11.9 Type 2 diabetes mellitus without complications; E03.9 Hypothyroidism, unspecified; E05.90 Thyrotoxicosis, unspecified without thyrotoxic crisis or storm; G56.31 Lesion of radial nerve, right upper limb; Z79.82 Long term (current) use of aspirin; Z79.899 Other long term (current) drug therapy; Z79.51 Long term (current) use of inhaled steroids
CPT/HCPCS: 93005; 36415 ×2; 84132; 85027; 80048; 81001; 71046; 71045; 73100; 93010; 25609; C1713 ×6; C1769; J2250; J3490 ×3; J1100; J3010; J2370; J0330; J2405; J2704; J0690; J0131; A9270; 01830

== ENCOUNTER 2018-09-01 12:34 | Day surgery (SDC) | payer MEDICARE, OTHER, MEDICAID ==
[2018-08-25 11:31] LABS: HEMATOCRIT 36.9 % (36.0-47.0); HEMOGLOBIN 12.3 g/dL (12.0-15.5); MEAN CORPUSCULAR HEMOGLOBIN 31.5 pg (27.0-33.4); MEAN CORPUSCULAR HGB CONC 33.3 g/dL (32.0-36.0); MEAN CORPUSCULAR VOLUME 94 fl (80-97); PLATELET COUNT 202 10^3/uL (150-450); RED CELL DISTRIBUTION WIDTH 13.6 % (11.5-14.0); WHITE BLOOD COUNT 7.1 10^3/uL (4.0-10.5)
[2018-08-25 11:42] LABS: APPEARANCE,URINE SLIGHTLY-CLOUDY; BILIRUBIN,URINE NEGATIVE (NEGATIVE); COLOR,URINE YELLOW; GLUCOSE, URINE NEGATIVE (NEGATIVE); KETONES,URINE NEGATIVE (NEGATIVE); LEUKOCYTE ESTERASE,URINE TRACE (NEGATIVE); NITRITE,URINE NEGATIVE (NEGATIVE); PROTEIN,URINE NEGATIVE (NEGATIVE); URINE SPECIFIC GRAVITY 1.011; UROBILINOGEN,URINE NEGATIVE mg/dL (<2.0)
[2018-08-25 11:55] LABS: ANION GAP 12 (5-19); BLOOD UREA NITROGEN 26 mg/dL (7-20); CALCIUM 9.3 mg/dL (8.4-10.2); CARBON DIOXIDE 26 mmol/L (22-30); CHLORIDE 106 mmol/L (98-107); GLUCOSE 106 mg/dL (75-110); SODIUM 143.9 mmol/L (137-145)
--- NOTE | 2018-08-25 12:41 | RADIOLOGY REPORT (SQ) ---
EXAM DESCRIPTION: CHEST PA/LATERAL COMPLETED DATE/TIME: 08/25/2018 11:18 am REASON FOR STUDY: PRE-OP COMPARISON: None. EXAM PARAMETERS: NUMBER OF VIEWS: two views TECHNIQUE: Digital Frontal and Lateral radiographic views of the chest acquired. RADIATION DOSE: NA LIMITATIONS: none FINDINGS: LUNGS AND PLEURA: Chronic interstitial changes. No focal infiltrates, masses or pneumotho rax. No pleural effusion. MEDIASTINUM AND HILAR STRUCTURES: No masses or contour abnormalities. HEART AND VASCULAR STRUCTURES: Heart normal size. No evidence for failure. BONES: No acute findings. Right rib deformities, present postoperative. Chronic changes in the spin e with old compression deformities and kyphoplasty cement HARDWARE: Prosthetic valve. Right shoulder prosthesis. OTHER: No other significant finding. IMPRESSION: SURGICAL CHANGES AND CHRONIC SCARRING. NO ACUTE RADIOGRAPHIC FINDING IN THE CHEST. TECHNICAL DOCUMENTATION: JOB ID: [id number] [employer]- All Rights Reserved Reading location - IP/workstation name: [email or web address]
--- NOTE | 2018-08-25 19:22 | EKG REPORT ---
SEVERITY:- ABNORMAL ECG - SINUS RHYTHM WITH LEFT BUNDLE BRANCH BLOCK : Confirmed by: Cayla Schulz 25-Aug-2018 19:21:50
[~2018-09-01 12:34] MED LIST changes: +FENTANYL CITRATE INJ/PF 100 MCG/2 ML AMPUL ONE; -GLYCOPYRROLATE 1 MG/5 ML SYRINGE ONE; +LIDOCAINE 2% INJ-PF (20 MG/ML) 10 ML AMPUL ONE; +MIDAZOLAM 2 MG/2 ML INJ ONE; -PHENYLEPHRINE HCL INJ/PF 10 MG/1 ML SDV ONE; +PROPOFOL INJ 200 MG/20 ML VIAL IV ONE; -ROCURONIUM BROMIDE INJ 50 MG/5 ML VIAL IV ONE; -SUCCINYLCHOLINE CHLORIDE INJ 200 MG/10 ML VIAL ONE
[2018-09-01] MEDS ORDERED: BUPIVACAINE HCL 0.5 % INJ/PF 30 ML SDV ONE ×2 (12:54→13:14)
[2018-09-01] MEDS ORDERED: ROPIVACAINE HCL 0.5% INJ/PF (5 MG/1 ML) 30 ML SDV ONE (12:58)
[2018-09-01] MEDS ORDERED: LIDOCAINE 2% INJ (20 MG/ML) 20 ML MDV ONE (12:58)
[2018-09-01] MEDS ORDERED: LIDOCAINE 2%/EPINEPHRINE INJ 20 ML VIAL ONE (12:58)
[2018-09-01] MEDS ORDERED: CEFAZOLIN 2 GM/D5W RTU 2 GM/50 ML RTUPB IV ONE (13:45)
[2018-09-01] MEDS ORDERED: PROMETHAZINE HCL INJ 25 MG/1 ML VIAL IV PRN ×2 (15:06)
[2018-09-01] MEDS ORDERED: DIPHENHYDRAMINE HCL 50 MG/ML VIAL IV PRN (15:06)
[2018-09-01] MEDS ORDERED: ONDANSETRON HCL INJ/PF 4 MG/2 ML SDV IV PRN ×2 (15:06→15:57)
[2018-09-01] MEDS ORDERED: MORPHINE SULFATE 10 MG/ML INJ IV PRN (15:06)
[2018-09-01] MEDS ORDERED: FENTANYL CITRATE INJ/PF 100 MCG/2 ML AMPUL IV PRN ×3 (15:06)
[2018-09-01] MEDS ORDERED: MEPERIDINE HCL/PF INJ 25 MG/1 ML DISP.SYRIN IV PRN (15:06)
[2018-09-01] MEDS ORDERED: HYDROCODONE/ACETAMINOPHEN 5-325 MG TABLET PO PRN (15:57)
--- NOTE | 2018-09-01 15:58 | Operative Report ---
Operative Report PREOPERATIVE DIAGNOSIS: Painful retained hardware left wrist POSTOPERATIVE DIAGNOSIS: Same OPERATION: Removal of hardware left wrist with extensor tenolysis SURGEON: CASSIE PLUMMER ANESTHESIA: GA COMPLICATIONS: None ESTIMATED BLOOD LOSS: Minimal PROCEDURE: Indication for above procedure: 82-year-old female who sustained a comminuted distal radius fracture. She subsequently underwent open reduction internal fixation with placement of distraction bridge plate. Postoperatively she did well and underwent therapy and she has good motion of her digits along with pronation and supination. X- rays demonstrated fracture healing at that point decision was made to proceed with operative intervention. Procedure In Detail: Patient was seen and evaluated in the preoperative holding area. The upper extremity was initialized and marked. Patient received 2g of Ancef IV for bacterial prophylaxis. In the preoperative holding area patient received a r egional block. Patient was taken back to the operative room where transferred to the operative table and placed under monitored anesthesia. Once they were adequately anesthetized a nonsterile tourniquet was placed on the upper extremity. A surgical team debriefing was performed ensuring all instrumentation was available, the surgical procedure was discussed with possible concerns reviewed. The upper extremity was prepped with chlorhexidine and alcohol and draped in a sterile fashion. A timeout was done identifying correct patient, procedure and extremity everyone in attendance agree with this and verbalized no concerns. The extremity was exsanguinated the tourniquet was inflated to 250 mmHg. Previous skin incision over the third metacarpal was utilized. Blunt dissection was performed. Any peripheral veins were coagulated with bipolar cautery. Extensor tenolysis was performed to the fourth dorsal compartment freeing the tendons from the underlying metacarpal. Once adequately released the distal screws within the distraction bridge plate were removed. The proximal aspect of the plate was then identified through the previous skin incision between the interval of the ECRB and EDC. Blunt dissection was performed any peripheral veins were coagulated bipolar cautery. Branch of the superficial nerve were retracted. Once adequate exposure was accomplished the proximal aspect of the plate was identified and the screws removed. The plate was then successfully removed. The screw holes were then debrided with a curette. Patient had full passive flexion of the IP/MP joints. Wrist range of motion was 35 degrees / 45 degrees with full pronation supination. C-arm fluoroscopy was obtained confirming adequate hardware removal and fracture union. Under live C-arm fluoroscopy there is no evidence of motion at the fracture site. Tourniquet deflated. Any peripheral bleeding was controlled with bipolar cautery. Wounds were copiously irrigated with normal saline. Skin was closed with interrupted 4-0 nylon suture. Wound was dressed with Xeroform 4 x 4's and a soft dressing placed. Sponge counts, instrument counts, needle counts were correct. Patient was then awoken from anesthesia. Transferred from the operating room table to the operating room stretcher. There was no intraoperative complications patient tolerated procedure well stable to PACU. Postop plan: Patient follow-up the office in 2 weeks at which point we will proceed with suture removal. She will start occupational therapy immediately postoperatively to optimize wrist range of motion.
--- NOTE | 2018-09-01 15:59 | Discharge Summary ---
Discharge Summary (SDC) - Discharge Final Diagnosis: Left distal radius fracture Date of Surgery: 09/01/18 Discharge Date: 09/01/18 Condition: Good Treatment or Instructions: Schedule Follow Up w/ Dr. Jace Sanchez @ [facility] for Surgery to be seen in 10-14 days or as scheduled [place]: [place]: [place]: May remove dressing on postop day #3, keep incision covered and dry. Ice and elevate May begin finger range of motion attempting to make full fist. Stool softener of choice when on pain medication. USE OF [id number] IBUPROFEN: Ibuprofen (Advil, Nuprin, Medipren, Motrin IB) is a medication for fever and pain control. In addition, it has anti- inflammatory effects which may be beneficial, especially in the treatment of injuries. It's best to take ibuprofen with food. Persons with ulcer disease or allergy to aspirin should notify their physician of this before taking ibuprofen. Ibuprofen can be given every four to six hours, for a total of four doses daily. Age Pain or fever dose Antiinflammatory dose 6-8 yr 200 mg (1 tab) 200 mg (1 tab) 9-11 yr 200 mg (1 tab) 200-400 mg (1-2 tab) 11-14 yr 200-400 mg (1-2 tab) 400 mg (2 tab) 15-adult 400 mg (2 tab) 600 mg (3 tab) ORAL NARCOTIC MEDICATION: You have been given a prescription for pain control. This medication is a narcotic. It's best taken with food, as nausea can result if taken on an empty stomach. Don't operate machinery or drive within six hours of taking this medication. Do not combine this medicine with alcohol, or with any medication which can cause sedation (such as cold tablets or sleeping pills) unless you get permission from the physician. Narcotics tend to cause constipation. If possible, drink plenty of fluids and eat a diet high in fiber and fruits. Please be aware that prescription narcotics also have the potential for abuse. People become addicted to these medications because of the general sense of wellbeing that they induce. This feeling along with a significant reduction in tension, anxiety, and aggression provides a stimulating seductive quality to these drugs. Once your pain is under control, we encourage you to discard your unused narcotics. Prescriptions: Hydrocodone/Acetaminophen [[place] 5-325 mg Tablet] 1 tab PO Q6 PRN #15 tablet PRN Reason: Pain Scale Of 3 Referrals: ITALO PALMER MD [Primary Care Provider] - Respiratory Treatments at Home: Deep Breathing/Coughing Discharge Activity: No Lifting Over 10 Pounds, No Lifting/Push/Pulling Report the Following to Your Physician Immediately: Fever over 101 Degrees, Unusual Bleeding, Redness, Swelling, Warmth, Increased Soreness, Drainage-Foul Smelling
--- NOTE | 2018-09-01 17:18 | RADIOLOGY REPORT (SQ) ---
EXAM DESCRIPTION: NO CHG FLUORO; WRIST LEFT 2 VIEWS COMPLETED DATE/TIME: 09/01/2018 4:19 pm REASON FOR STUDY: HARDWARE REMOVAL LT WRIST COMPARISON: None FLUOROSCOPY TIME: 5 seconds 1 Images saved to PACS LIMITATIONS: None. PROCEDURE: Intraoperative fluoroscopic imaging provided. 5 seconds of fluoroscopy time was utilized . 1 image was saved. FINDINGS: Intraoperative fluoroscopic imaging provided to evaluate progress. Please see operative r eport for detailed description of procedure. IMPRESSION: Intraoperative fluoroscopic imaging provided. Please see operative report for descripti on of procedure. COMMENT: PQRS 6045F: Fluoroscopy time of the procedure is documented in the report. TECHNICAL DOCUMENTATION: JOB ID: [id number] [employer]- All Rights Reserved Reading location - IP/workstation name: [email or web address]
--- NOTE | 2018-09-01 17:18 | RADIOLOGY REPORT (SQ) ---
EXAM DESCRIPTION: NO CHG FLUORO; WRIST LEFT 2 VIEWS COMPLETED DATE/TIME: 09/01/2018 4:19 pm REASON FOR STUDY: HARDWARE REMOVAL LT WRIST COMPARISON: None FLUOROSCOPY TIME: 5 seconds 1 Images saved to PACS LIMITATIONS: None. PROCEDURE: Intraoperative fluoroscopic imaging provided. 5 seconds of fluoroscopy time was utilized . 1 image was saved. FINDINGS: Intraoperative fluoroscopic imaging provided to evaluate progress. Please see operative r eport for detailed description of procedure. IMPRESSION: Intraoperative fluoroscopic imaging provided. Please see operative report for descripti on of procedure. COMMENT: PQRS 6045F: Fluoroscopy time of the procedure is documented in the report. TECHNICAL DOCUMENTATION: JOB ID: [id number] [employer]- All Rights Reserved Reading location - IP/workstation name: [email or web address]
[2018-09-01 17:38] VITALS: BP 126/79
--- NOTE | 2018-09-01 19:34 | EKG REPORT ---
SEVERITY:- ABNORMAL ECG - SINUS RHYTHM LEFT BUNDLE BRANCH BLOCK : Confirmed by: Chayo Dumont MD 01-Sep-2018 19:33:36
== END 2018-09-01 17:25 | disposition home or self-care (01) ==
LOC: OROUT 12:34
PROVIDERS: ATTEND Orthopaedic Surgery
DX: T84.84XA Pain due to internal orthopedic prosthetic devices, implants and grafts, initial encounter (principal); Y83.8 Other surgical procedures as the cause of abnormal reaction of the patient, or of later complication, without mention of misadventure at the time of the procedure; I10 Essential (primary) hypertension; D64.9 Anemia, unspecified; E11.9 Type 2 diabetes mellitus without complications; J44.9 Chronic obstructive pulmonary disease, unspecified; M19.90 Unspecified osteoarthritis, unspecified site; G56.31 Lesion of radial nerve, right upper limb; E05.90 Thyrotoxicosis, unspecified without thyrotoxic crisis or storm; Z95.2 Presence of prosthetic heart valve; I25.10 Atherosclerotic heart disease of native coronary artery without angina pectoris; Z79.82 Long term (current) use of aspirin; Z79.899 Other long term (current) drug therapy; Z88.5 Allergy status to narcotic agent; Z79.1 Long term (current) use of non-steroidal anti-inflammatories (NSAID); Z79.51 Long term (current) use of inhaled steroids
CPT/HCPCS: 93005 ×2; 36415 ×2; 84132; 85027; 80048; 81001; 83036; 71046; 73100; 93010 ×2; 25295; 20680; J2795; J3490 ×4; J2704; J0690; 01810; J1100; J2250; J2405; J3010

== ENCOUNTER 2018-11-27 04:36 | Emergency (ER) | payer MEDICARE, MEDICAID ==
[2018-11-27 05:30] LABS: ABSOLUTE EOSINOPHILS # (AUTO) 0.1 10^3/uL (0.0-0.6); ABSOLUTE LYMPHOCYTES (AUTO) 0.8 10^3/uL (0.5-4.7); ABSOLUTE MONOCYTES (AUTO) 0.4 10^3/uL (0.1-1.4); ABSOLUTE NEUT (AUTO) 6.2 10^3/uL (1.7-8.2); BASOPHILS % (AUTO) 0.5 % (0-2); EOSINOPHILS % (AUTO) 1.3 % (0-6); HEMATOCRIT 37.8 % (36.0-47.0); HEMOGLOBIN 12.7 g/dL (12.0-15.5); LYMPHOCYTES % (AUTO) 10.9 % (13-45); MEAN CORPUSCULAR HGB CONC 33.6 g/dL (32.0-36.0); MEAN CORPUSCULAR VOLUME 95 fl (80-97); PLATELET COUNT 188 10^3/uL (150-450); RED BLOOD COUNT 3.97 10^6/uL (3.72-5.28); RED CELL DISTRIBUTION WIDTH 13.4 % (11.5-14.0); SEGMENTED NEUTROPHILS % (AUTO) 82.3 % (42-78); TOTAL CELLS COUNTED % (AUTO) 100 %; WHITE BLOOD COUNT 7.6 10^3/uL (4.0-10.5)
[2018-11-27 05:32] LABS: INTERNATIONAL RATION (INR) 0.91; PROTHROMBIN TIME 12.8 SEC (11.4-15.4)
[2018-11-27 05:38] LABS: ALANINE AMINOTRANSFERASE 15 U/L (9-52); ALBUMIN 4.2 g/dL (3.5-5.0); ALKALINE PHOSPHATASE 97 U/L (38-126); ANION GAP 7 (5-19); ASPARTATE AMINO TRANSFERASE 27 U/L (14-36); BILIRUBIN,DIRECT 0.2 mg/dL (0.0-0.4); BILIRUBIN,TOTAL 0.3 mg/dL (0.2-1.3); BLOOD UREA NITROGEN 16 mg/dL (7-20); CALCIUM 9.6 mg/dL (8.4-10.2); CARBON DIOXIDE 29 mmol/L (22-30); CHLORIDE 107 mmol/L (98-107); CREATINE KINASE 53 U/L (30-135); GLUCOSE 123 mg/dL (75-110); POTASSIUM 4.5 mmol/L (3.6-5.0); SODIUM 142.5 mmol/L (137-145); TOTAL PROTEIN 7.4 g/dL (6.3-8.2)
[2018-11-27 05:47] LABS: CREATINE KINASE MB 0.94 ng/mL (<4.55)
[2018-11-27 05:51] LABS: TROPONIN I 0.015 ng/mL
--- NOTE | 2018-11-27 05:53 | RADIOLOGY REPORT (SQ) ---
EXAM DESCRIPTION: XR CHEST 1 VIEW COMPLETED DATE/TME: 11/27/2018 05:00 CLINICAL HISTORY: 83 years, Female, SOB Comparison: February 22, 2019 FINDINGS: Lung volumes are decreased. Subsegmental atelectasis in the left lung base. Cardiac silhouette is normal in size. Patient has had a percutaneous aortic valve replacement. Vertebroplasty bilateral shoulder arthroplasties are noted. No pleural abnormalities. IMPRESSION: Mild left basilar subsegmental atelectasis otherwise cardiopulmonary disease.
--- NOTE | 2018-11-27 05:57 | ER Document Report ---
Addendum entered and electronically signed by CHANEL CAMPOS PA-C 11/28/18 10:40: Course - Re-evaluation Re-evalutation: 11/28/18 10:38 According to our discharge planning/social work consult, patient does not meet requirements for oxygen coverage at this time. Patient is feeling much better. We ambulated her without oxygen and she maintained greater than 93% on room air. She did not have any labored breathing or dyspnea on exertion. No new concerns or complaints. Patient has not had any deterioration throughout her stay. She does not meet admission criteria for hypoxia at this time. Dr. Valentino in agreement with dispo. Patient to follow-up with her family provider in 2-3 days. Return to the ED with any other worsening/concerning symptoms. Patient is in agreement. - Vital Signs Vital signs: Temp Pulse Resp BP Pulse Ox 98.5 F 15 163/53 H 94 11/28/18 07:03 11/28/18 07:00 11/28/18 06:31 11/28/18 07:00 - Laboratory Result Diagrams: 11/28/18 00:30 11/27/18 22:45 Laboratory results interpreted by me: 11/27/18 11/27/18 11/27/18 05:00 05:00 05:00 Seg Neutrophils % 82.3 H Lymphocytes % 10.9 L Carbon Dioxide Est GFR (Non-Af Amer) 55 L Glucose 123 H NT-Pro-B Natriuret Pep 1900 H 11/27/18 11/27/18 22:45 22:45 Seg Neutrophils % Lymphocytes % Carbon Dioxide 31 H Est GFR (Non-Af Amer) 56 L Glucose NT-Pro-B Natriuret Pep 3560 H Discharge - Discharge Clinical Impression: Shortness of breath Congestive heart failure Qualifiers: Heart failure type: unspecified Heart failure chronicity: acute Qualified Code(s): I50.9 - Heart failure, unspecified Condition: Stable Disposition: HOME-ASSISTED LIVING Instructions: Congestive Heart Failure ([facility]) Additional Instructions: After receiving Lasix IV patient responded well admittedly stated she felt much better. Patient was ambulated and did well maintaining her sats. was notified and stated the patient could be followed up in his office on Friday. In the meantime we will continue patient on heparin inch of Nitropaste while back at the facility and 2 L of nasal cannula as needed for shortness of breath. She will get her Lasix 40 mill grams p.o. in the morning and 20 mg at night. Forms: Elevated Blood Pressure Referrals: ITALO PALMER MD [Primary Care Provider] - 11/30/18 Addendum entered and electronically signed by CHANEL CAMPOS PA-C 11/28/18 09:47: Course - Re-evaluation Re-evalutation: 11/28/18 09:46 I have re-evaluated the patient. She received her morning medications and is feeling better overall. Her SOB has improved. She is currently residing on via [place] and at 95%. She has no concerns or complaints. Lungs sound clear. We are currently awaiting social work consult/discharge planning. - Vital Signs Vital signs: Temp Pulse Resp BP Pulse Ox 98.5 F 15 163/53 H 94 11/28/18 07:03 11/28/18 07:00 11/28/18 06:31 11/28/18 07:00 - Laboratory Result Diagrams: 11/28/18 00:30 11/27/18 22:45 Laboratory results interpreted by me: 11/27/18 11/27/18 11/27/18 05:00 05:00 05:00 Seg Neutrophils % 82.3 H Lymphocytes % 10.9 L Carbon Dioxide Est GFR (Non-Af Amer) 55 L Glucose 123 H NT-Pro-B Natriuret Pep 1900 H 11/27/18 11/27/18 22:45 22:45 Seg Neutrophils % Lymphocytes % Carbon Dioxide 31 H Est GFR (Non-Af Amer) 56 L Glucose NT-Pro-B Natriuret Pep 3560 H Addendum entered and electronically signed by ITALO NEWTON PA-C 11/27/18 21:33: Course - Re-evaluation Re-evalutation: 11/27/18 21:29 Some Chase Newton physician training and development assistant dictating a note on patient Reece Villanueva. Ms. Villanueva was my patient prior to departing from this morning's shift. I had placed orders patient be returned to her assisted living facility after having ambulated her and her maintaining sats. I had written orders the patient could be returned to the facility and use as needed oxygen I was under the impression patient facility had oxygen. It was informed on my return this evening that the aids social worker has been involved with patient all day today on attempting to g et her oxygen and the provider taken my place Demetrio HARLEY had signed orders for oxygen at 2 L nasal cannula continuous until follow-up with her primary care provider. My understanding is that [facility] is attempted to get Medicare okayed but that due to will reorder originally being written for 1 to 2 L as needed it was not authorized and the order had to be rewritten and refaxed again. By the time it was rewritten refaxed evidently [facility] had closed down without informing anyone and so at 8:00 tonight when I came back in I was informed by nursing that patient was not going to be getting any oxygen to go back to her facility. Patient is been well today according to nursing laying in bed she has been maintaining sats of 9495 on 2 L nasal cannula. When they do take her off the oxygen and she lays still she runs 90 to 93% on room air. Her only difficult time at point is when she exerts herself of trying to get up in the bed or have a difficult time moving around and she gets a little short winded. I have discussed this case with my attending and we will monitor patient tonight for admission at this point do not still believe is warranted in the fact that there is nothing that we can do in house that she cannot do at her facility as long as she has oxygen available. Nursing also informed the aids social worker on top of the situation and they should be able to get her oxygen at the facility in the morning. I will monitor patient tonight we will repeat some labs to make sure she is still stable if anything changes to where we find that she has noticed stable and unable to be transferred back to the [facility] facility we can at that point admit. Currently she is awake alert and oriented she is a little agitated about being here all day but she is a very pleasant woman in understanding what. - Vital Signs Vital signs: Temp Pulse Resp BP Pulse Ox 98.1 F 17 159/65 H 95 11/27/18 18:43 11/27/18 20:31 11/27/18 20:31 11/27/18 20:31 - Laboratory Result Diagrams: 11/27/18 05:00 11/27/18 05:00 Laboratory results interpreted by me: 11/27/18 11/27/18 11/27/18 05:00 05:00 05:00 Seg Neutrophils % 82.3 H Lymphocytes % 10.9 L Est GFR (Non-Af Amer) 55 L Glucose 123 H NT-Pro-B Natriuret Pep 1900 H Addendum entered and electronically signed by ITALO NEWTON PA-C 11/27/18 16:59: Discharge - Discharge Clinical Impression: Shortness of breath Congestive heart failure Qualifiers: Heart failure type: unspecified Heart failure chronicity: acute Qualified Code(s): I50.9 - Heart failure, unspecified Condition: Good Disposition: HOME-ASSISTED LIVING Instructions: Congestive Heart Failure ([facility]) Additional Instructions: After receiving Lasix IV patient responded well admittedly stated she felt much better. Patient was ambulated and did well maintaining her sats. was notified and stated the patient could be followed up in his office on Friday. In the meantime we will continue patient on heparin inch of Nitropaste while back at the facility and 2 L of nasal cannula as needed for shortness of breath. She will get her Lasix 40 mill grams p.o. in the morning and 20 mg at night. Forms: Elevated Blood Pressure Referrals: ITALO PALMER MD [Primary Care Provider] - Follow up as needed Original Note: ED Respiratory Problem - General Chief Complaint: Shortness Of Breath Stated Complaint: TROUBLE BREATHING Time Seen by Provider: 11/27/18 04:45 Primary Care Provider: ITALO PALMER MD [Primary Care Provider] - Follow up as needed Mode of Arrival: Medic Information source: Patient, Emergency Med Personnel Notes: Patient is a 83-year-old female comes emergency room via EMS with complaint of onset of shortness of breath. Patient states that she lives in an assisted living and when she got up to go to the bathroom at 1 AM this morning when she is walking back she felt more short of breath than usual. Patient states she lay on the bed and the shortness of breath got worse she gets slightly anxious she called 1 of the overnight attendance and told him what she felt may in turn contacted the nurse that was in charge and she took her blood pressure nurse t old patient that her blood pressure was 199/70 which is also high for patient so that made her even more short of breath and she she later cannot figure out what to do the nurse at our you are to go to the ER. Nurse with patient decided to do. She came into ER with complaint of shortness of breath we did roll her over and change her to where she is sitting in a semierect fashion to do 1/2 L nasal cannula and feeling fine at this point. She still states that she is has some heaviness in the chest but it is gotten much better since she left the assisted living. TRAVEL OUTSIDE OF THE [place] IN LAST 30 DAYS: No - HPI Patient complains to provider of: Short of breath Onset: Just prior to arrival Duration: Continuous Initiating Event: Exertion Quality of pain: Fullness Severity: Moderate Pain Level: 3 Context: Hx CHF Short of Breath: Moderate Chest pain/discomfort: Constant, Heaviness Cough: Nonproductive Sputum amount: None Associated symptoms: Cough, Orthopnea Similar symptoms previously: Yes Recently seen / treated by doctor: No - Related Data Allergies/Adverse Reactions: morphine [Morphine] Adverse Reaction (Verified 08/25/18 09:50) oxycodone [Oxycodone] Adverse Reaction (Verified 08/25/18 09:50) Past Medical History - General Information source: Patient - Social History Smoking Status: Never Smoker Cigarette use (# per day): No Chew tobacco use (# tins/day): No Smoking Education Provided: No Frequency of alcohol use: None Drug Abuse: None Lives with: [facility] Family History: Reviewed & Not Pertinent Patient has suicidal ideation: No Patient has homicidal ideation: No - Past Medical History Cardiac Medical History: Reports: Hx Atrial Fibrillation, Hx Hypercholesterolemia, Hx Hypertension, Hx Heart Murmur Denies: Hx Congestive Heart Failure, Hx Coronary Artery Disease, Hx Heart Attack, Hx Peripheral Vascular Disease, Hx Pulmonary Embolism Pulmonary Medical History: Reports: Hx Pneumonia Denies: Hx Asthma, Hx Bronchitis, Hx COPD, Hx Respiratory Failure, Hx Sleep Apnea, Hx Tuberculosis Neurological Medical History: Denies: Hx Cerebrovascular Accident, Hx Seizures Endocrine Medical History: Reports: Hx Diabetes Mellitus Type 2, Hx Hypothyroidism. Denies: Hx Graves' Disease, Hx Hyperthyroidism Renal/ Medical History: Denies: Hx End Stage Renal Disease, Hx Kidney Stones, Hx Ovarian Cysts, Hx Peritoneal Dialysis, Hx Pelvic Inflammatory Disease Malignancy Medical History: Denies: Hx Breast Cancer, Hx Cervical Cancer, Hx Leukemia, Hx Lung Cancer, Hx Ovarian Cancer GI Medical History: Denies: Hx Crohn's Disease, Hx Gastroesophageal Reflux Disease, Hx Hepatitis, Hx Irritable Bowel, Hx Liver Failure, Hx Pancreatitis, Hx Ulcer. Comment Only: Hx Hiatal Hernia - diverticulitis Musculoskeletal Medical History: Reports Hx Arthritis - GENERALIZED, Denies Hx Fibromyalgia, Denies Hx Multiple Sclerosis, Denies Hx Muscular Dystrophy Psychiatric Medical History: Reports: Hx Dementia, Hx Depression Denies: Hx Bipolar Disorder, Hx Post Traumatic Stress Disorder, Hx Schizophrenia Traumatic Medical History: Denies: Hx Fractures Infectious Medical History: Denies: Hx Hepatitis, Hx HIV Past Surgical History: Reports: Hx Cardiac Surgery - Bio-prosthetic aortic valve replacement, Hx Orthopedic Surgery - L shoulder replacement, left hip, Hx Tubal Ligation, Hx Valve Replacement, Other - Right mastoid surgery for chronic mastoiditis. Denies: Hx Appendectomy, Hx Bowel Surgery, Hx Section, Hx Cholecystectomy, Hx Colostomy, Hx Coronary Artery Bypass Graft, Hx Gastric Bypass Surgery, Hx Herniorrhaphy, Hx Hysterectomy, Hx Mastectomy, Hx Open Heart Surgery, Hx Pacemaker, Hx Tonsillectomy - Immunizations Hx Diphtheria, Pertussis, Tetanus Vaccination: Yes Hx Pneumococcal Vaccination: 02/13/12 Review of Systems - Review of Systems Constitutional: No symptoms reported EENT: No symptoms reported Cardiovascular: See HPI Respiratory: Short of breath Gastrointestinal: No symptoms reported Genitourinary: No symptoms reported Female Genitourinary: No symptoms reported Musculoskeletal: No symptoms reported Skin: No symptoms reported Hematologic/Lymphatic: No symptoms reported Neurological/Psychological: No symptoms reported -: Yes All other systems reviewed and negative Physical Exam - Vital signs Vitals: Temp Resp Pulse Ox 98.7 F 16 97 11/27/18 04:42 11/27/18 04:42 11/27/18 04:42 Interpretation: Hypertensive - Notes Notes: PHYSICAL EXAMINATION: GENERAL: Patient is a well-nourished well-developed 83-year-old female is in no apparent distress on physical exam this morning however she does feel somewhat short of breath. HEAD: Atraumatic, normocephalic. EYES: Pupils equal round and reactive to light, extraocular movements intact, conjunctiva are normal. ENT: Nares patent, oropharynx clear without exudates. Moist mucous membranes. NECK: Normal range of motion, supple without lymphadenopathy LUNGS: Auscultation patient's lung green show she has bilateral breath sounds b reath sounds are decreased throughout patient does display rales in the bases on auscultation. HEART: Regular rate and rhythm without murmurs ABDOMEN: Patient has some mild distention bowel sounds in all 4 quads somewhat tympanic on percussion but no tenderness to palpation. Female : deferred Musculoskeletal: Examination patient's lower extremities show no signs of edema at this time. She does display good pulses on the dorsalis pedis. And has range of motion in all the ankles and knees. NEUROLOGICAL: Normal speech, normal gait. Normal sensory, motor exams PSYCH: Normal mood, normal affect. SKIN: Warm, Dry, normal turgor, no rashes or lesions noted. Course - Re-evaluation Re-evalutation: 11/27/18 08:16 Patient was ambulated by nursing staff at my request. During her ambulation without oxygen patient maintain sats of 94 to 95%. Upon arrival back to the room when she attempted to crawl up into the high beds patient got a little bit short of breath sats dropped down to 8889%. Once back in bed patient sats were up again. She maintained about 9495. With O2 on she maintain sats of 9099. We put on a call to Dr. Palmer and he was kind enough to return her call in discussing the patient care he stated patient could be returned to the assisted living and have follow-up with him on Friday. - Vital Signs Vital signs: Temp Pulse Resp BP Pulse Ox 98.7 F 18 163/53 H 97 11/27/18 04:42 11/27/18 07:01 11/27/18 07:01 11/27/18 07:01 - Laboratory Result Diagrams: 11/27/18 05:00 11/27/18 05:00 Laboratory results interpreted by me: 11/27/18 11/27/18 11/27/18 05:00 05:00 05:00 Seg Neutrophils % 82.3 H Lymphocytes % 10.9 L Est GFR (Non-Af Amer) 55 L Glucose 123 H NT-Pro-B Natriuret Pep 1900 H Discharge - Discharge Clinical Impression: Shortness of breath Congestive heart failure Qualifiers: Heart failure type: unspecified Heart failure chronicity: acute Qualified Code (s): I50.9 - Heart failure, unspecified Condition: Good Disposition: HOME-ASSISTED LIVING Instructions: Congestive Heart Failure ([facility]) Additional Instructions: After receiving Lasix IV patient responded well admittedly stated she felt much better. Patient was ambulated and did well maintaining her sats. was notified and stated the patient could be followed up in his office on Friday. In the meantime we will continue patient on heparin inch of Nitropaste while back at the facility and 2 L of nasal cannula as needed for shortness of breath. She will get her Lasix 40 mill grams p.o. in the morning and 20 mg at night. Forms: Elevated Blood Pressure Referrals: ITALO PALMER MD [Primary Care Provider] - Follow up as needed
[2018-11-27] MEDS ORDERED: FUROSEMIDE INJ/PF 40 MG/4 ML SDV IV ONE ×2 (06:06→20:51)
[2018-11-27] MEDS ORDERED: NITROGLYCERIN 2% OINTMENT 1 GM PACKET TP ONE (07:55)
[2018-11-27 08:42] LABS: APPEARANCE,URINE CLEAR; BILIRUBIN,URINE NEGATIVE (NEGATIVE); COLOR,URINE STRAW; GLUCOSE, URINE NEGATIVE (NEGATIVE); KETONES,URINE NEGATIVE (NEGATIVE); LEUKOCYTE ESTERASE,URINE NEGATIVE (NEGATIVE); NITRITE,URINE NEGATIVE (NEGATIVE); PROTEIN,URINE NEGATIVE (NEGATIVE); URINE SPECIFIC GRAVITY 1.006; UROBILINOGEN,URINE NEGATIVE mg/dL (<2.0)
--- NOTE | 2018-11-27 09:50 | EKG REPORT ---
SEVERITY:- ABNORMAL ECG - SINUS RHYTHM LEFT BUNDLE BRANCH BLOCK : Confirmed by: Chayo Dumont MD 27-Nov-2018 09:49:24
[2018-11-27] MEDS ORDERED: ISOSORBIDE MONONITRATE 30 MG TAB.ER.24H PO ONE (10:58)
[2018-11-27] MEDS ORDERED: ATORVASTATIN CALCIUM 10 MG TABLET PO ONE (10:59)
[2018-11-27] MEDS ORDERED: METOPROLOL TARTRATE 50 MG TABLET PO ONE (10:59)
[2018-11-27] MEDS ORDERED: LEVOTHYROXINE SODIUM 0.05 MG TABLET PO ONE (10:59)
[2018-11-27] MEDS ORDERED: MEMANTINE HCL 10 MG TABLET PO ONE (20:52)
[2018-11-27] MEDS ORDERED: METOPROLOL SUCCINATE 50 MG TAB.SR.24H PO ONE (20:52)
[2018-11-27] MEDS ORDERED: HYDROCODONE/ACETAMINOPHEN 5-325 MG TABLET PO ONE (20:53)
[2018-11-27] MEDS ORDERED: GABAPENTIN 100 MG CAPSULE PO ONE (20:53)
[2018-11-27] MEDS ORDERED: MEMANTINE HCL 10 MG TABLET ONE (21:29)
[2018-11-27 23:28] LABS: ALANINE AMINOTRANSFERASE 25 U/L (9-52); ALBUMIN 4.1 g/dL (3.5-5.0); ALKALINE PHOSPHATASE 102 U/L (38-126); ANION GAP 5 (5-19); ASPARTATE AMINO TRANSFERASE 25 U/L (14-36); BILIRUBIN,DIRECT 0.3 mg/dL (0.0-0.4); BILIRUBIN,TOTAL 0.5 mg/dL (0.2-1.3); BLOOD UREA NITROGEN 17 mg/dL (7-20); CALCIUM 9.6 mg/dL (8.4-10.2); CARBON DIOXIDE 31 mmol/L (22-30); CHLORIDE 102 mmol/L (98-107); GLUCOSE 109 mg/dL (75-110); SODIUM 137.7 mmol/L (137-145)
[2018-11-28 00:41] LABS: ABSOLUTE EOSINOPHILS # (AUTO) 0.1 10^3/uL (0.0-0.6); ABSOLUTE LYMPHOCYTES (AUTO) 1.3 10^3/uL (0.5-4.7); ABSOLUTE MONOCYTES (AUTO) 0.7 10^3/uL (0.1-1.4); ABSOLUTE NEUT (AUTO) 6.4 10^3/uL (1.7-8.2); BASOPHILS % (AUTO) 0.4 % (0-2); EOSINOPHILS % (AUTO) 0.8 % (0-6); HEMATOCRIT 36.4 % (36.0-47.0); HEMOGLOBIN 12.4 g/dL (12.0-15.5); LYMPHOCYTES % (AUTO) 15.1 % (13-45); MEAN CORPUSCULAR HEMOGLOBIN 32.4 pg (27.0-33.4); MEAN CORPUSCULAR HGB CONC 34.1 g/dL (32.0-36.0); MEAN CORPUSCULAR VOLUME 95 fl (80-97); MONOCYTES % (AUTO) 8.4 % (3-13); PLATELET COUNT 194 10^3/uL (150-450); RED BLOOD COUNT 3.84 10^6/uL (3.72-5.28); RED CELL DISTRIBUTION WIDTH 12.8 % (11.5-14.0); SEGMENTED NEUTROPHILS % (AUTO) 75.3 % (42-78); TOTAL CELLS COUNTED % (AUTO) 100 %; WHITE BLOOD COUNT 8.5 10^3/uL (4.0-10.5)
[2018-11-28] MEDS ORDERED: NITROGLYCERIN 2% OINTMENT 1 GM PACKET TP ONE (00:50)
[2018-11-28 11:32] VITALS: BP 153/49
== END 2018-11-28 11:31 | disposition home health service (06) ==
LOC: ER 04:36
DX: I11.0 Hypertensive heart disease with heart failure (principal); I50.9 Heart failure, unspecified; E11.9 Type 2 diabetes mellitus without complications; R06.02 Shortness of breath; R14.0 Abdominal distension (gaseous); Z87.01 Personal history of pneumonia (recurrent)
CPT/HCPCS: 93005; 96376; 99285; 96374; 36415; 87086; 82553; 82550; 85025; 85610; 80053; 81001; 84484; 83880; 71045; 93010; A9270 ×9; J1940

== ENCOUNTER → 2019-08-25 | Outpatient (CLI) | payer MEDICARE, MEDICAID ==
[2019-08-25 11:07] LABS: ABSOLUTE BASOPHILS # (AUTO) 0.1 10^3/uL (0.0-0.2); ABSOLUTE EOSINOPHILS # (AUTO) 0.1 10^3/uL (0.0-0.6); ABSOLUTE LYMPHOCYTES (AUTO) 1.1 10^3/uL (0.5-4.7); ABSOLUTE MONOCYTES (AUTO) 0.4 10^3/uL (0.1-1.4); ABSOLUTE NEUT (AUTO) 3.6 10^3/uL (1.7-8.2); BASOPHILS % (AUTO) 1.1 % (0-2); EOSINOPHILS % (AUTO) 1.2 % (0-6); HEMATOCRIT 39.8 % (36.0-47.0); HEMOGLOBIN 13.4 g/dL (12.0-15.5); LYMPHOCYTES % (AUTO) 20.9 % (13-45); MEAN CORPUSCULAR HEMOGLOBIN 32.5 pg (27.0-33.4); MEAN CORPUSCULAR HGB CONC 33.5 g/dL (32.0-36.0); MEAN CORPUSCULAR VOLUME 97 fl (80-97); MONOCYTES % (AUTO) 7.9 % (3-13); PLATELET COUNT 186 10^3/uL (150-450); RED BLOOD COUNT 4.11 10^6/uL (3.72-5.28); RED CELL DISTRIBUTION WIDTH 13.5 % (11.5-14.0); SEGMENTED NEUTROPHILS % (AUTO) 68.9 % (42-78); TOTAL CELLS COUNTED % (AUTO) 100 %; WHITE BLOOD COUNT 5.2 10^3/uL (4.0-10.5)
[2019-08-25 11:37] LABS: ALBUMIN 4.5 g/dL (3.5-5.0); ALKALINE PHOSPHATASE 120 U/L (38-126); ANION GAP 8 (5-19); ASPARTATE AMINO TRANSFERASE 25 U/L (14-36); BILIRUBIN,DIRECT 0.3 mg/dL (0.0-0.4); BILIRUBIN,TOTAL 0.4 mg/dL (0.2-1.3); BLOOD UREA NITROGEN 22 mg/dL (7-20); CALCIUM 9.3 mg/dL (8.4-10.2); CARBON DIOXIDE 32 mmol/L (22-30); CHLORIDE 104 mmol/L (98-107); CHOLESTEROL 244.36 mg/dL (0-200); GLUCOSE 100 mg/dL (75-110); POTASSIUM 4.6 mmol/L (3.6-5.0); TOTAL PROTEIN 7.6 g/dL (6.3-8.2); TRIGLYCERIDES 211 mg/dL (<150)
[2019-08-25 11:48] LABS: DIRECT LDL 150 mg/dL (<100)
[2019-08-25 11:49] LABS: VLDL CHOLESTEROL 42.2 mg/dL (10-31)
== END ==
LOC: OD 09:20
PROVIDERS: ATTEND Internal Medicine
DX: I12.9 Hypertensive chronic kidney disease with stage 1 through stage 4 chronic kidney disease, or unspecified chronic kidney disease (principal); N18.9 Chronic kidney disease, unspecified; E78.5 Hyperlipidemia, unspecified; R53.83 Other fatigue; I99.9 Unspecified disorder of circulatory system
CPT/HCPCS: 36415; 80053; 80061; 83735; 84443; 85025

== ENCOUNTER 2019-10-07 06:02 | Emergency (ER) | payer MEDICARE, MEDICAID ==
--- NOTE | 2019-10-07 06:42 | RADIOLOGY REPORT (SQ) ---
CT head without contrast on 10/07/2019 at 6:13 AM CLINICAL INDICATION: Fall, per protocol for mechanism of injury TECHNIQUE: Multiple axial images are obtained throughout the head without the administration of contrast. This exam was performed according to our departmental dose-optimization program, which includes automated exposure control, adjustment of the mA and/or kV according to patient size and/or use of iterative reconstruction technique. Total DLP is 1043.77 mGy*cm. COMPARISON: 04/23/2018 FINDINGS: There is generalized cerebral atrophy. There is low density in the periventricular white matter consistent with chronic small vessel ischemic changes. There is no hydrocephalus. There is no hemorrhage. There are no abnormal extra-axial fluid collections. There is no mass, mass effect or midline shift. There is no CT evidence of acute infarct. The patient is status post left mastoidectomy. No acute bony abnormality is noted. Right parieto-occipital scalp hematoma is noted. IMPRESSION: Atrophy and chronic small vessel ischemic changes with no acute intracranial abnormality.
--- NOTE | 2019-10-07 08:58 | ER Document Report ---
ED General - General Chief Complaint: Fall Injury Stated Complaint: FALL Time Seen by Provider: 10/07/19 08:45 Primary Care Provider: ITALO PALMER MD [Primary Care Provider] - Follow up in 3-5 days Mode of Arrival: Medic Information source: Patient, Emergency Med Personnel Notes: This 84-year-old female with history of Alzheimer's dementia health currently [facility] at [facility] presents to the emergency department via EMS post fall. Report received patient was in the process of standing from sitting in a recliner when she fell. Patient does have a lack to the back of her head. Patient complains of pain with movement of her head and low sacrum pain. No other complaints such as recent illness fever vomiting diarrhea. Patient is pleasant calm and cooperative. Patient reports history of measles in childhood complaints but does not report history of dementia or Alzheimer's. Patient reports she has been living in [facility] since 2011. Unsure of today's date. TRAVEL OUTSIDE OF THE [place] IN LAST 30 DAYS: No - HPI Onset: Just prior to arrival Onset/Duration: Sudden Quality of pain: Achy Associated symptoms: None Exacerbated by: Movement Relieved by: Denies Similar symptoms previously: No Recently seen / treated by doctor: No - Related Data Allergies/Adverse Reactions: morphine [Morphine] Adverse Reaction (Verified 08/25/18 09:50) oxycodone [Oxycodone] Adverse Reaction (Verified 08/25/18 09:50) Home Medications: ASA 325mg. imdur. Lipitor. metOlazone. multivital. Namenda. Omeprazole. Synthroid. zoloft. colace. Ferrousul. Flonase. keflex. Lasix. metoprolol. potassium Chloride. Neurontin. wellbutrin. Systane solution. Amoxicillan. Endit. Imodium. [place]. Tylenol. Ventolin. Zyrtec Past Medical History - General Information source: Patient, Emergency Med Personnel - Social History Smoking Status: Never Smoker Chew tobacco use (# tins/day): No Frequency of alcohol use: None Drug Abuse: None Lives with: [facility] Family History: Reviewed & Not Pertinent Patient has suicidal ideation: No Patient has homicidal ideation: No - Past Medical History Cardiac Medical History: Reports: Hx Atrial Fibrillation, Hx Hypercholesterolemia, Hx Hypertension, Hx Heart Murmur Denies: Hx Congestive Heart Failure, Hx Coronary Artery Disease, Hx Heart Attack, Hx Peripheral Vascular Disease, Hx Pulmonary Embolism Pulmonary Medical History: Reports: Hx Pneumonia Denies: Hx Asthma, Hx Bronchitis, Hx COPD, Hx Respiratory Failure, Hx Sleep Apnea, Hx Tuberculosis Neurological Medical History: Denies: Hx Cerebrovascular Accident, Hx Seizures, Hx Parkinson's Disease Endocrine Medical History: Reports: Hx Diabetes Mellitus Type 2, Hx Hypothyroidism. Denies: Hx Graves' Disease, Hx Hyperthyroidism Renal/ Medical History: Denies: Hx End Stage Renal Disease, Hx Kidney Stones, Hx Ovarian Cysts, Hx Peritoneal Dialysis, Hx Pelvic Inflammatory Disease Malignancy Medical History: Denies: Hx Breast Cancer, Hx Cervical Cancer, Hx Leukemia, Hx Lung Cancer, Hx Ovarian Cancer GI Medical History: Denies: Hx Crohn's Disease, Hx Gastroesophageal Reflux Disease, Hx Hepatitis, Hx Irritable Bowel, Hx Liver Failure, Hx Pancreatitis, Hx Ulcer. Comment Only: Hx Hiatal Hernia - diverticulitis Musculoskeletal Medical History: Reports Hx Arthritis - GENERALIZED, Denies Hx Fibromyalgia, Denies Hx Multiple Sclerosis, Denies Hx Muscular Dystrophy, Denies Hx Systemic Lupus Erythematosus Psychiatric Medical History: Reports: Hx Dementia, Hx Depression Denies: Hx Bipolar Disorder, Hx Post Traumatic Stress Disorder, Hx Schizophrenia Traumatic Medical History: Denies: Hx Fractures Infectious Medical History: Denies: Hx Hepatitis, Hx HIV Past Surgical History: Reports: Hx Cardiac Surgery - Bio-prosthetic aortic valve replacement, Hx Orthopedic Surgery - L shoulder replacement, left hip, Hx Tubal Ligation, Hx Valve Replacement, Other - Right mastoid surgery for chronic mastoiditis. Denies: Hx Appendectomy, Hx Bowel Surgery, Hx Section, Hx Cholecystectomy, Hx Colostomy, Hx Coronary Artery Bypass Graft, Hx Gastric Bypass Surgery, Hx Herniorrhaphy, Hx Hysterectomy, Hx Mastectomy, Hx Open Heart Surgery, Hx Pacemaker, Hx Tonsillectomy - Immunizations Hx Diphtheria, Pertussis, Tetanus Vaccination: Yes Hx Pneumococcal Vaccination: 02/13/12 Review of Systems - Review of Systems Notes: Review HPI for review of systems., All other systems negative Physical Exam - Vital signs Vitals: Pulse Ox 94 10/07/19 06:21 - General General appearance: Alert In distress: None - HEENT Head: Tenderness, Other - linear laceration ~ 4 cm to the back of patients head, no active bleeding Eyes: Normal Conjunctiva: Normal Extraocular movements intact: Yes Pupils: PERRL Ears: Normal External canal: Normal Tympanic membrane: Normal Mucous membranes: Normal, Moist Pharynx: Normal Neck: Normal, Supple - Respiratory Respiratory status: No respiratory distress Chest status: Nontender Breath sounds: Normal Chest palpation: Normal - Cardiovascular Rhythm: Regular Heart sounds: Normal auscultation Murmur: No - Abdominal Inspection: Normal Distension: No distension Bowel sounds: Normal Tenderness: Tender - Low abdominal tenderness with palpation Organomegaly: No organomegaly Adult front & back diagram: 1 - Reports some tenderness with palpation - Back Back: Tender - Good distal movement and sensation. Patient complains of tenderness to the sacrum area - Extremities General upper extremity: Normal ROM General lower extremity: Normal ROM - Psychological Associated symptoms: Normal affect, Normal mood - Skin Skin Temperature: Warm Skin Moisture: Dry Skin Color: Normal Course - Re-evaluation Re-evalutation: 10/07/19 10:10 84-year-old female presents emergency department fall with laceration to the back of her head. Unknown change in LOC. According to EMS patient was sitting in her recliner went to stand up and fell hitting her head. Patient has history of dementia and Alzheimer's. Patient is alert and oriented very calm and pleasant. Patient is able to recall past medical history such as children diseases when she was a child. Patient is not aware of Alzheimer's or dysmetria. She does report she has been living at [facility] for [address]. CT of cervical spine and head are negative. Possible nondisplaced fracture to the coccyx noted. Patient was treated with a laceration with anastacia. Discharged back to [facility]. Head CT 10/07/19 06:03 IMPRESSION: Atrophy and chronic small vessel ischemic changes with no acute intracranial abnormality. Cervical Spine CT 10/07/19 08:52 IMPRESSION: No acute fracture or malalignment of the cervical spine. Sacrum and Coccyx X-Ray 10/07/19 08:52 IMPRESSION: Questionable lucent defect through the coccyx that could represent a non displaced fracture. Otherwise the limited evaluation of the sacrum due to superimposition of bowel and osteopenia. 10/07/19 10:51 Laboratory 10/07/19 09:40 Urine Color STRAW Urine Appearance CLEAR Urine pH 5.0 Ur Specific [place] 1.009 Urine Protein NEGATIVE Urine Glucose (UA) NEGATIVE Urine Ketones NEGATIVE Urine Blood NEGATIVE Urine Nitrite (Reflex) NEGATIVE Urine Bilirubin NEGATIVE Urine Urobilinogen NEGATIVE Leukocyte Esterase Rfl NEGATIVE U Hyaline Cast (Auto) 25 Urine Mucus (Auto) RARE Urine Ascorbic Acid NEGATIVE - Vital Signs Vital signs: Temp Pulse Resp BP Pulse Ox 98.1 F 79 21 H 152/62 H 96 10/07/19 12:57 10/07/19 12:57 10/07/19 12:57 10/07/19 12:57 10/07/19 12:57 - Diagnostic Test Radiology reviewed: Image reviewed, Reports reviewed - EKG Interpretation by Me EKG shows normal: Sinus rhythm [place]/QRS: LBBB When compared to previous EKG there are: No significant change Additional EKG results interpreted by me: 10/07/19 09:56 NO stemi Procedures - Laceration/Wound Repair scalp Time completed: 10:01 Wound length (cm): 4 Wound's Depth, Shape: Superficial, Linear Laceration pre-procedure: Shcarolyne-Cleavril applied Irrigated w/ Saline (mLs): 250 Wound Repaired With: [place] Number of Sutures: 3 - anastacia Adult Head Front/Back picture: 1 - linear laceration closed with 3 anastacia Discharge - Discharge Clinical Impression: laceration with staple closure Fall Qualifiers: Encounter type: initial encounter Qualified Code(s): W19.XXXA - Unspecified fall, initial encounter Low back pain Qualifiers: Chronicity: acute Back pain laterality: unspecified Sciatica presence: without sciatica Qualified Code(s): M54.5 - Low back pain Fractured coccyx Qualifiers: Encounter type: initial encounter Fracture type: closed Qualified Code(s): S32.2XXA - Fracture of coccyx, initial encounter for closed fracture Condition: Stable Disposition: HOME-ASSISTED LIVING Instructions: Acetaminophen, Coccyx Fracture ([facility]), Low Back Pain ([facility]), Care of Stapled Wounds ([facility]) Additional Instructions: *You have been treated post fall for laceration to your scalp with staple closure, low back pain, fractured coccyx *Monitor the site for signs of infection such as increasing pain, redness, swelling, warmth *Keep the area clean. Wash with gentle shampoo. *Take Tylenol as indicated for pain, sit on a pillow or padded seating for comfort *Follow up here in the emergency department in 5 days for staple removal *Return to the emergency department earlier for any signs of infection, worsening condition, concerns, needs Referrals: ITALO PALMER MD [Primary Care Provider] - Follow up in 3-5 days
--- NOTE | 2019-10-07 10:00 | RADIOLOGY REPORT (SQ) ---
EXAM DESCRIPTION: CT CERVICAL SPINE WITHOUT COMPLETED DATE/TIME: 10/07/2019 9:30 am REASON FOR STUDY: fall pain with movement neck COMPARISON: CT of the cervical spine without contrast from 03/20/2018 TECHNIQUE: Axial images acquired through the cervical spine without intravenous contrast. Images re viewed with lung, soft tissue and bone windows. Reconstructed coronal and sagittal MPR images review ed. Images stored on PACS. All CT scanners at this facility use dose modulation, iterative reconstruction, and/or weight based d osing when appropriate to reduce radiation dose to as low as reasonably achievable (ALARA). [facility]: Dose Right [facility]: CareDose [facility]: Dose Right [facility]: Teradose 4D [facility]: Nubity RADIATION DOSE: CT Rad equipment meets quality standard of care and radiation dose reduction techniq ues were employed. CTDIvol: 26.2 mGy. DLP: 391 mGy-cm. LIMITATIONS: None. FINDINGS: ALIGNMENT: There is grade 1 anterolisthesis of C2 relative to C3 and C3 relative to C4 and grade 1 retrolisthesis of C4 relative to C5. There is no craniocervical or atlantoaxial dissociatio n. MINERALIZATION: Osteopenia. VERTEBRAL BODIES: There is partial osseous fusion of the C4, C5 and C6 vertebral bodies across the in tervertebral disc space. The cervical vertebral body heights are preserved. There is no fracture. DISCS: Evaluation of the spinal canal is limited due to the absence of intrathecal contrast and beam hardening artifact. The intervertebral disc spaces from C2-C3 to C7-T1 are narrowed. FACETS, LATERAL MASSES, POSTERIOR ELEMENTS: There is osseous fusion of the left C5-C6 facet joints. There is no acute fracture or malalignment of the facets, lateral masses and posterior elements. HARDWARE: None in the spine. VISUALIZED RIBS: No fractures. LUNG APICES AND SOFT TISSUES: No acute findings. OTHER: No other finding. IMPRESSION: No acute fracture or malalignment of the cervical spine. TECHNICAL DOCUMENTATION: JOB ID: [id number] Quality ID # [id number]: Final reports with documentation of one or more dose reduction techniques (e.g., Au tomated exposure control, adjustment of the mA and/or kV according to patient size, use of iterative reconstruction technique) 2010 [employer]- All Rights Reserved Reading location - IP/workstation name: [email or web address]
--- NOTE | 2019-10-07 10:08 | RADIOLOGY REPORT (SQ) ---
EXAM DESCRIPTION: SACRUM AND COCCYX COMPLETED DATE/TIME: 10/07/2019 9:46 am REASON FOR STUDY: fall, back pain COMPARISON: None. NUMBER OF VIEWS: Three views. TECHNIQUE: AP, lateral, and tilt views of the sacrum and coccyx. LIMITATIONS: None. FINDINGS: MINERALIZATION: Osteopenia. BONES: Evaluation of the sacrum are on the AP and tail views is limited due to superimposition of bow el. On the lateral view there is a questionable lucent defect through the coccyx. SOFT TISSUES: No soft tissue swelling. OTHER: ORIF hardware in the left femur. IMPRESSION: Questionable lucent defect through the coccyx that could represent a non displaced fract ure. Otherwise the limited evaluation of the sacrum due to superimposition of bowel and osteopenia. TECHNICAL DOCUMENTATION: JOB ID: [id number] 2010 [employer]- All Rights Reserved Reading location - IP/workstation name: [email or web address]
[2019-10-07 10:14] LABS: APPEARANCE,URINE CLEAR; BILIRUBIN,URINE NEGATIVE (NEGATIVE); COLOR,URINE STRAW; GLUCOSE, URINE NEGATIVE (NEGATIVE); KETONES,URINE NEGATIVE (NEGATIVE); PROTEIN,URINE NEGATIVE (NEGATIVE); URINE SPECIFIC GRAVITY 1.009; UROBILINOGEN,URINE NEGATIVE mg/dL (<2.0)
[2019-10-07 12:06] VITALS: BP 152/62
--- NOTE | 2019-10-07 19:38 | EKG REPORT ---
SEVERITY:- ABNORMAL ECG - SINUS RHYTHM PROBABLE LEFT ATRIAL ABNORMALITY LEFT BUNDLE BRANCH BLOCK : Confirmed by: Chayo Dumont MD 07-Oct-2019 19:38:02
== END 2019-10-07 12:56 | disposition home health service (06) ==
LOC: ER 06:02
DX: S32.2XXA Fracture of coccyx, initial encounter for closed fracture (principal); S01.01XA Laceration without foreign body of scalp, initial encounter; M54.5 Low back pain; W19.XXXA Unspecified fall, initial encounter; Y93.89 Activity, other specified; Y92.129 Unspecified place in nursing home as the place of occurrence of the external cause; R10.819 Abdominal tenderness, unspecified site; I44.7 Left bundle-branch block, unspecified; G30.9 Alzheimer's disease, unspecified; F02.80 Dementia in other diseases classified elsewhere, unspecified severity, without behavioral disturbance, psychotic disturbance, mood disturbance, and anxiety; M85.88 Other specified disorders of bone density and structure, other site; F32.9 Major depressive disorder, single episode, unspecified; I10 Essential (primary) hypertension; E11.9 Type 2 diabetes mellitus without complications; E03.9 Hypothyroidism, unspecified; Z79.82 Long term (current) use of aspirin; Z79.899 Other long term (current) drug therapy; E78.00 Pure hypercholesterolemia, unspecified; Z79.2 Long term (current) use of antibiotics
CPT/HCPCS: 70450; 72125; 72220; 81001; 93005; 93010; 99285